=== PATIENT | male | born 1965 | race Caucasian/White ===

== ENCOUNTER → 2016-07-16 | Outpatient (CLI) | payer BC ==
--- NOTE | 2016-07-16 16:05 | US ---
EXAMINATION TYPE: US kidneys/renal and bladder DATE OF EXAM: 07/16/2016 1:59 PM COMPARISON: CT abdomen pelvis 25 April 2016 CLINICAL HISTORY: N20.0 Calculus of Kidney. Hematuria, right flank pain, left kidney stone seen on re cent CT, obese patient EXAM MEASUREMENTS: Right Kidney: 13.0 x 6.1 x 5.8cm Left Kidney: 13.0 x 6.9 x 6.2cm Cortical medullary differentiation is maintained bilaterally. There is no evident hydronephrosis. No mass. Right Kidney: wnl Left Kidney: 0.9cm echogenic focus mid pole Bladder: wnl Bilateral Jets seen: yes Incidental note, the liver shows a coarse echotexture compatible with fatty infiltration. No masses a re identified. The urinary bladder is anechoic. Bilateral ureteral jets are seen. There is no ascites. IMPRESSION: Possible left-sided nephrolithiasis. Additional findings above.
== END | disposition home or self-care (01) ==
LOC: RADUSWWP 13:41
PROVIDERS: ATTEND Family Medicine
DX: N20.0 Calculus of kidney (principal)
CPT/HCPCS: 76770

== ENCOUNTER 2016-09-11 08:52 | Emergency (ER) | payer BC ==
[2016-09-11] MEDS ORDERED: SODIUM CHLORIDE 0.9% 500 ML IV STA (09:09)
[2016-09-11] MEDS ORDERED: SODIUM CHLORIDE 0.9% 1,000 ML IV STA ×2 (09:09)
[2016-09-11 09:14] LABS: Glucose,Whole Blood 157 mg/dL (75-99)
[2016-09-11 09:37] LABS: Basophils # (A) 0.1 k/uL (0-0.2); Basophils % (A) 1 %; CH 30.1; CHCM 33.4; Eosinophils # (A) 0.1 k/uL (0-0.7); Eosinophils % (A) 2 %; HCT 50.6 % (39.0-53.0); HDW 2.66; HGB 16.8 gm/dL (13.0-17.5); Luc # (Auto) 0.29; Luc % (Auto) 4; Lymphocytes # (A) 2.3 k/uL (1.0-4.8); Lymphocytes % (A) 33 %; MCH 30.1 pg (25.0-35.0); MCHC 33.2 g/dL (31.0-37.0); MCV 90.5 fL (80.0-100.0); Mean Platelet Volume 7.9; Monocytes # (A) 0.7 k/uL (0-1.0); Monocytes % (A) 9 %; Neutrophils # (A) 3.6 k/uL (1.3-7.7); Neutrophils % (A) 51 %; RBC 5.59 m/uL (4.30-5.90); RDW 13.7 % (11.5-15.5); WBC 7.1 k/uL (3.8-10.6); WBC (Perox) 7.34
[2016-09-11 09:38] LABS: Appearance,Urine Clear (Clear); Bilirubin,Urine Negative (Negative); Calcium Oxalate Crystals,Urine Occasional /hpf; Glucose,Urine (UA) 2+ (Negative); Ketones,Urine Negative (Negative); Leukocyte Esterase,Urine Negative (Negative); Mucus,Urine Rare /hpf; Nitrite,Urine Negative (Negative); Particle Count 2473; Protein,Urine 1+ (Negative); RBC,Urine >182 /hpf (0-5); Specific Gravity,Urine 1.028 (1.001-1.035); UA Billing (MACRO vs. MICRO) MICRO; WBC,Urine 2 /hpf (0-5)
--- NOTE | 2016-09-11 09:57 | ED ---
General Adult HPI - General Chief complaint: Recheck/Abnormal Lab/Rx Stated complaint: SENT BY [employer], ABNORMAL LABS Time Seen by Provider: 09/11/16 09:08 Source: patient, RN notes reviewed Mode of arrival: ambulatory Limitations: no limitations - History of Present Illness Initial comments: Patient 51-year-old male who presents emergency room today with a chief complaint of symptoms of diarrhea over the last 2 days. Does admit to feeling dizzy earlier today at urgent care and was advised coming here to the emergency room. He states felt dizzy went straight up. States he has felt somewhat clammy over the last 2 days as well. Denies any nausea or vomiting. Denies any other complaints or symptoms. Patient denies any recent fever, chills, shortness of breath, chest pain, back pain, abdominal pain, nausea or vomiting, numbness or tingling, dysuria or hematuria, constipation, headaches or visual changes, or any other complaints. - Related Data Home Medications Medication Instructions Recorded Confirmed Metoprolol Succinate (ER) [Toprol 100 mg PO DAILY 02/14/14 09/11/16 XL] Pantoprazole Sodium [Protonix] 40 mg PO DAILY 02/14/14 09/11/16 amLODIPine BESYLATE [Norvasc] 10 mg PO DAILY 02/14/14 09/11/16 Losartan [Cozaar] 50 mg PO DAILY 04/25/16 09/11/16 Acetaminophen Tab [Tylenol Tab] 1,000 mg PO Q6HR PRN 09/11/16 09/11/16 Citalopram Hydrobromide 40 mg PO DAILY 09/11/16 09/11/16 [Citalopram HBr] metFORMIN HCL [metFORMIN HCL ER] 1,000 mg PO BID 09/11/16 09/11/16 Previous Rx's Medication Instructions Recorded EPINEPHrine [Epipen 2-Arnold] 0.3 mg IM ONCE PRN #2 ml 02/17/14 Allergies Allergy/AdvReac Type Severity Reaction Status Date / Time oxycodone HCl [From Percocet] Allergy Anaphylaxis Verified 09/11/16 09:45 venom-honey bee Allergy Swelling Verified 09/11/16 09:45 [bee venom (honey bee)] codeine AdvReac Itching Verified 09/11/16 09:45 Review of Systems ROS Statement: Those systems with pertinent positive or pertinent negative responses have been documented in the HPI. ROS Other: All systems not noted in ROS Statement are negative. Past Medical History Past Medical History: Diabetes Mellitus, GERD/Reflux, Hypertension History of Any Multi-Drug Resistant Organisms: None Reported Past Surgical History: Orthopedic Surgery Additional Past Surgical History / Comment(s): FASCIOTOMY BILAT HANDS, LT FOOT SURGERY, MUSCLE BIOPSY RT LEG, right shoulder arthroscopy Past Anesthesia/Blood Transfusion Reactions: No Reported Reaction Past Psychological History: Depression Smoking Status: Former smoker Past Alcohol Use History: None Reported Past Drug Use History: None Reported General Exam - General Exam Comments Initial Comments: General: The patient is awake and alert, in no distress, and does not appear acutely ill. Eye: Pupils are equal, round and reactive to light, extra-ocular movements are intact. No nystagmus. There is normal conjunctiva bilaterally. No signs of icterus. Ears, nose, mouth and throat: There are moist mucous membranes and no oral lesions. Neck: The neck is supple, there is no tenderness or JVD. Cardiovascular: There is a regular rate and rhythm. No murmur, rub or gallop is appreciated. Respiratory: Lungs are clear to auscultation, respirations are non-labored, breath sounds are equal. No wheezes, stridor, rales, or rhonchi. Gastrointestinal: Soft, non-distended, non-tender abdomen without masses or organomegaly noted. There is no rebound or guarding present. No CVA tenderness. Bowel sounds are unremarkable. Musculoskeletal: Normal ROM, no tenderness. Strength 5/5. Sensation intact. Pulses equal bilaterally 2+. Neurological: A&O x 3. CN II-XII intact, There are no obvious motor or sensory deficits. Coordination appears grossly intact. Speech is normal. Skin: Skin is warm and dry and no rashes or lesions are noted. Psychiatric: Cooperative, appropriate mood & affect, normal judgment. Limitations: no limitations Course Vital Signs 09/11/16 09/11/16 08:57 09:26 Temperature 97.3 F L Pulse Rate 58 L 54 L Respiratory 18 14 Rate Blood Pressure 157/89 123/77 O2 Sat by Pulse 97 96 Oximetry Medical Decision Making - Medical Decision Making Patient reexamined at this time shows no signs of distress. He denies any complaints at this time. States feels much better. Patient denies any chest pain, shortness of breath. Denies any dizziness, lightheadedness. Denies any clamminess at this time. States feeling better after IV fluids. His labs were reviewed negative cardiac enzymes. EKG shows normal EKG. Patient's chest x- ray negative for any acute abnormalities. Patient's urinalysis does show large amount of blood. Does admit to a history of kidney stones states he's had hematuria in the past. States he has follow-up family doctor about this. Does admit that he had a recent CT done recently. At this time has no pain and no complaints. Options of CAT scan were discussed he states he feels couple following up his family doctor was also advised follow-up urologist about hematuria. Advised return if any symptoms increase worsen or for any other concerns. Patient advised to use Imodium for any more diarrhea episodes. - Lab Data Result diagrams: 09/11/16 09:10 09/11/16 09:10 Lab Results 09/11/16 09/11/16 09/11/16 Range/Units 09:10 09:10 09:10 WBC (3.8-10.6) k/uL RBC (4.30-5.90) m/uL Hgb (13.0-17.5) gm/dL Hct (39.0-53.0) % MCV (80.0-100.0) fL MCH (25.0-35.0) pg MCHC (31.0-37.0) g/dL RDW (11.5-15.5) % Plt Count (150-450) k/uL Neutrophils % % Lymphocytes % % Monocytes % % Eosinophils % % Basophils % % Neutrophils # (1.3-7.7) k/uL Lymphocytes # (1.0-4.8) k/uL Monocytes # (0-1.0) k/uL Eosinophils # (0-0.7) k/uL Basophils # (0-0.2) k/uL Sodium 143 (137-145) mmol/L Potassium 4.0 (3.5-5.1) mmol/L Chloride 105 (98-107) mmol/L Carbon Dioxide 26 (22-30) mmol/L Anion Gap 12 mmol/L BUN 15 (9-20) mg/dL Creatinine 0.70 (0.66-1.25) mg/dL Est GFR (MDRD) Af Amer >60 (>60 ml/min/1.73 sqM) Est GFR (MDRD) Non-Af >60 (>60 ml/min/1.73 sqM) Glucose 149 H (74-99) mg/dL POC Glucose (mg/dL) 157 H (75-99) mg/dL POC Glu Social Media Strategist ID Nikky Dove Calcium 9.6 (8.4-10.2) mg/dL Total Bilirubin 0.5 (0.2-1.3) mg/dL AST 34 (17-59) U/L ALT 60 (21-72) U/L Alkaline Phosphatase 98 (38-126) U/L Total Creatine Kinase 56 (55-170) U/L CK-MB (CK-2) 0.3 (0.0-2.4) ng/mL CK-MB (CK-2) Rel Index 0.5 Troponin I <0.012 (0.000-0.034) ng/mL Total Protein 7.3 (6.3-8.2) g/dL Albumin 4.5 (3.5-5.0) g/dL Amylase 68 (30-110) U/L Lipase 158 (23-300) U/L Urine Color Urine Appearance (Clear) Urine pH (5.0-8.0) Ur Specific [place] (1.001-1.035) Urine Protein (Negative) Urine Glucose (UA) (Negative) Urine Ketones (Negative) Urine Blood (Negative) Urine Nitrite (Negative) Urine Bilirubin (Negative) Urine Urobilinogen (<2.0) mg/dL Ur Leukocyte Esterase (Negative) Urine RBC (0-5) /hpf Urine WBC (0-5) /hpf Calcium Oxalate Crystal (None) /hpf Urine Mucus (None) /hpf Acetone, Qual Negative (Negative) 09/11/16 09/11/16 Range/Units 09:10 09:10 WBC 7.1 (3.8-10.6) k/uL RBC 5.59 (4.30-5.90) m/uL Hgb 16.8 (13.0-17.5) gm/dL Hct 50.6 (39.0-53.0) % MCV 90.5 (80.0-100.0) fL MCH 30.1 (25.0-35.0) pg MCHC 33.2 (31.0-37.0) g/dL RDW 13.7 (11.5-15.5) % Plt Count 200 (150-450) k/uL Neutrophils % 51 % Lymphocytes % 33 % Monocytes % 9 % Eosinophils % 2 % Basophils % 1 % Neutrophils # 3.6 (1.3-7.7) k/uL Lymphocytes # 2.3 (1.0-4.8) k/uL Monocytes # 0.7 (0-1.0) k/uL Eosinophils # 0.1 (0-0.7) k/uL Basophils # 0.1 (0-0.2) k/uL Sodium (137-145) mmol/L Potassium (3.5-5.1) mmol/L Chloride (98-107) mmol/L Carbon Dioxide (22-30) mmol/L Anion Gap mmol/L BUN (9-20) mg/dL Creatinine (0.66-1.25) mg/dL Est GFR (MDRD) Af Amer (>60 ml/min/1.73 sqM) Est GFR (MDRD) Non-Af (>60 ml/min/1.73 sqM) Glucose (74-99) mg/dL POC Glucose (mg/dL) (75-99) mg/dL POC Glu Social Media Strategist ID Calcium (8.4-10.2) mg/dL Total Bilirubin (0.2-1.3) mg/dL AST (17-59) U/L ALT (21-72) U/L Alkaline Phosphatase (38-126) U/L Total Creatine Kinase (55-170) U/L CK-MB (CK-2) (0.0-2.4) ng/mL CK-MB (CK-2) Rel Index Troponin I (0.000-0.034) ng/mL Total Protein (6.3-8.2) g/dL Albumin (3.5-5.0) g/dL Amylase (30-110) U/L Lipase (23-300) U/L Urine Color Yellow Urine Appearance Clear (Clear) Urine pH 6.0 (5.0-8.0) Ur Specific [place] 1.028 (1.001-1.035) Urine Protein 1+ H (Negative) Urine Glucose (UA) 2+ H (Negative) Urine Ketones Negative (Negative) Urine Blood Moderate H (Negative) Urine Nitrite Negative (Negative) Urine Bilirubin Negative (Negative) Urine Urobilinogen 2.0 (<2.0) mg/dL Ur Leukocyte Esterase Negative (Negative) Urine RBC >182 H (0-5) /hpf Urine WBC 2 (0-5) /hpf Calcium Oxalate Crystal Occasional H (None) /hpf Urine Mucus Rare H (None) /hpf Acetone, Qual (Negative) Disposition Clinical Impression: Acute diarrhea Disposition: HOME SELF-CARE Condition: Good Instructions: Acute Diarrhea (ED) Additional Instructions: Please use medication as discussed. Please follow-up with family doctor in the next 2 days of symptoms have not improved. Please return to emergency room if the symptoms increase or worsen or for any other concerns. Time of Disposition: 11:27
[2016-09-11 09:58] LABS: ALT 60 U/L (21-72); AST 34 U/L (17-59); Alkaline Phosphatase 98 U/L (38-126); Amylase 68 U/L (30-110); Anion Gap 12 mmol/L; Blood Urea Nitrogen 15 mg/dL (9-20); Calcium 9.6 mg/dL (8.4-10.2); Carbon Dioxide 26 mmol/L (22-30); Chloride 105 mmol/L (98-107); Glucose 149 mg/dL (74-99); Non-African American GFR(MDRD) >60 (>60 ml/min/1.73 sqM); Sodium 143 mmol/L (137-145); Total Bilirubin 0.5 mg/dL (0.2-1.3); Total Protein 7.3 g/dL (6.3-8.2)
[2016-09-11 10:08] LABS: Creatine Kinase 56 U/L (55-170)
[2016-09-11 10:21] LABS: Creatine Kinase MB 0.3 ng/mL (0.0-2.4); Troponin I <0.012 ng/mL (0.000-0.034)
--- NOTE | 2016-09-11 10:54 | XR ---
EXAMINATION TYPE: XR chest 2V DATE OF EXAM: 09/11/2016 10:51 AM COMPARISON: None TECHNIQUE: PA and lateral views submitted. HISTORY: Dizziness FINDINGS: The lungs are clear and there is no pneumothorax, pleural effusion, or focal pneumonia. Linear granger ges involving the left upper lobe with typical scar or atelectasis. No pleural effusion or pneumothor ax. Heart size is mildly prominent. IMPRESSION: 1. No acute process. Left upper lobe linear atelectasis.
[2016-09-11 11:52] VITALS: BP 143/86; PULSE 53; RESP 16; TEMP 97.5
== END 2016-09-11 11:49 | disposition home or self-care (01) ==
LOC: EC 08:52
DX: R19.7 Diarrhea, unspecified (principal); R42 Dizziness and giddiness; R31.9 Hematuria, unspecified; E11.9 Type 2 diabetes mellitus without complications; I10 Essential (primary) hypertension; K21.9 Gastro-esophageal reflux disease without esophagitis; F32.9 Major depressive disorder, single episode, unspecified; Z88.5 Allergy status to narcotic agent; Z87.891 Personal history of nicotine dependence; Z91.030 Bee allergy status; Z79.84 Long term (current) use of oral hypoglycemic drugs; Z79.899 Other long term (current) drug therapy
CPT/HCPCS: 36415; 71020; 80053; 81001; 82009; 82150; 82550; 82553; 83690; 84484; 85025; 93005; 96360; 99283

== ENCOUNTER 2017-01-26 02:14 | Observation (INO) | payer BC ==
[2017-01-26] MEDS ORDERED: ASPIRIN 81 MG CHEW PO STA (02:40)
[2017-01-26] MEDS ORDERED: NITROGLYCERIN SL TABS 0.4 MG TAB SUBLINGUAL STA (02:40)
--- NOTE | 2017-01-26 02:46 | ED ---
Chest Pain HPI - General Chief Complaint: Chest Pain Stated Complaint: Chest pains Time Seen by Provider: 01/26/17 02:19 Source: patient Mode of arrival: ambulatory Limitations: no limitations - History of Present Illness Initial Comments: This patient is a 51-year-old man who presents to be a value for substernal and left chest pain that he describes as being like a "burning feeling but not like heartburn." Patient was at work with seated when it developed. He states that pain is moderate. It has improved since she has arrived here. He did not note any worsening or relieving factors. He did feel a little sweaty when the pain came on. MD Complaint: chest pain Onset/Timin -: hour(s) Onset: during rest Pain Location: substernal Pain Radiation: none Severity: moderate Quality: other (Burning) Consistency: constant Improves With: nothing Worsens With: nothing Anginal Symptoms: diaphoresis Treatments Prior to Arrival: none - Related Data Home Medications Medication Instructions Recorded Confirmed Metoprolol Succinate (ER) [Toprol 100 mg PO DAILY 02/14/14 01/26/17 XL] Pantoprazole Sodium [Protonix] 40 mg PO DAILY 02/14/14 01/26/17 amLODIPine BESYLATE [Norvasc] 10 mg PO DAILY 02/14/14 01/26/17 Losartan [Cozaar] 50 mg PO DAILY 04/25/16 01/26/17 Acetaminophen Tab [Tylenol Tab] 1,000 mg PO Q6HR PRN 09/11/16 01/26/17 Citalopram Hydrobromide 40 mg PO DAILY 09/11/16 01/26/17 [Citalopram HBr] metFORMIN HCL [metFORMIN HCL ER] 1,000 mg PO BID 09/11/16 01/26/17 Empagliflozin [Jardiance] 10 mg PO DAILY 01/26/17 01/26/17 Previous Rx's Medication Instructions Recorded EPINEPHrine [Epipen 2-Arnold] 0.3 mg IM ONCE PRN #2 ml 02/17/14 Allergies Allergy/AdvReac Type Severity Reaction Status Date / Time oxycodone HCl [From Percocet] Allergy Anaphylaxis Verified 01/26/17 07:40 venom-honey bee Allergy Swelling Verified 01/26/17 07:40 [bee venom (honey bee)] codeine AdvReac Itching Verified 01/26/17 07:40 Review of Systems ROS Statement: Those systems with pertinent positive or pertinent negative responses have been documented in the HPI. ROS Other: All systems not noted in ROS Statement are negative. Constitutional: Denies: fever, chills Respiratory: Denies: cough, dyspnea Cardiovascular: Reports: chest pain. Denies: palpitations, edema, syncope Gastrointestinal: Denies: abdominal pain, nausea, vomiting Genitourinary: Denies: dysuria Musculoskeletal: Denies: back pain Skin: Denies: rash Neurological: Denies: headache, weakness, numbness EKG Findings - EKG Results: EKG: interpreted by TAINA DUVAL, sinus rhythm (Rate 79 bpm), normal axis, normal QRS, normal ST/T, no acute changes - AK, Pacemaker, Normal: Normal tracing: normal tracing Past Medical History Past Medical History: Diabetes Mellitus, GERD/Reflux, Hypertension History of Any Multi-Drug Resistant Organisms: None Reported Past Surgical History: Orthopedic Surgery Additional Past Surgical History / Comment(s): FASCIOTOMY BILAT HANDS, LT FOOT SURGERY, MUSCLE BIOPSY RT LEG, right shoulder arthroscopy Past Anesthesia/Blood Transfusion Reactions: No Reported Reaction Past Psychological History: Depression Smoking Status: Former smoker Past Alcohol Use History: None Reported Past Drug Use History: None Reported - Past Family History Father Family Medical History: Coronary Artery Disease (CAD), Diabetes Mellitus, Prostate Disorder Additional Family Medical History / Comment(s): st. caths at home Sister(s) Family Medical History: Diabetes Mellitus Mother Family Medical History: Cancer, COPD, Fibromyalgia Additional Family Medical History / Comment(s): Bladder CA General Exam Limitations: no limitations General appearance: alert, in no apparent distress, obese Head exam: Present: atraumatic, normocephalic Eye exam: Present: normal appearance, PERRL, EOMI. Absent: scleral icterus, conjunctival injection Neck exam: Present: normal inspection, full ROM Respiratory exam: Present: normal lung sounds bilaterally. Absent: respiratory distress, wheezes, rales, rhonchi, stridor Cardiovascular Exam: Present: regular rate, normal rhythm, normal heart sounds. Absent: systolic murmur, diastolic murmur, rubs, gallop GI/Abdominal exam: Present: soft. Absent: distended, tenderness, guarding, mass Extremities exam: Present: normal inspection, normal capillary refill. Absent: pedal edema, calf tenderness Back exam: Absent: CVA tenderness (R), CVA tenderness (L) Neurological exam: Present: alert Skin exam: Present: warm, dry, intact, normal color. Absent: rash Course Vital Signs 01/26/17 01/26/17 02:22 03:32 Temperature 97.1 F L Pulse Rate 84 69 Respiratory 18 18 Rate Blood Pressure 153/76 135/67 O2 Sat by Pulse 95 97 Oximetry Chest Pain MDM - MDM This patient is a 51-year-old man who presents with some substernal left chest pain that wasn't coming by diaphoresis. The symptoms have resolved and his initial workup is normal, but there are risk factors for cardiac disease including diabetes and some family history. Patient be admitted for serial cardiac enzymes and telemetry monitoring. Disposition Clinical Impression: Chest pain Disposition: ADMITTED IP TO THIS HOSP Condition: Good
[2017-01-26 02:50] LABS: Basophils # (A) 0.1 k/uL (0-0.2); Basophils % (A) 1 %; CH 29.5; CHCM 33.2; Eosinophils # (A) 0.2 k/uL (0-0.7); Eosinophils % (A) 3 %; HCT 50.7 % (39.0-53.0); HDW 2.65; HGB 16.5 gm/dL (13.0-17.5); Luc # (Auto) 0.17; Luc % (Auto) 2; Lymphocytes # (A) 2.9 k/uL (1.0-4.8); Lymphocytes % (A) 35 %; MCH 29.1 pg (25.0-35.0); MCHC 32.6 g/dL (31.0-37.0); MCV 89.4 fL (80.0-100.0); Mean Platelet Volume 7.9; Monocytes # (A) 0.5 k/uL (0-1.0); Monocytes % (A) 6 %; Neutrophils # (A) 4.4 k/uL (1.3-7.7); Neutrophils % (A) 53 %; RBC 5.67 m/uL (4.30-5.90); WBC 8.2 k/uL (3.8-10.6); WBC (Perox) 8.07
[2017-01-26 03:07] LABS: ALT 48 U/L (21-72); AST 29 U/L (17-59); Alkaline Phosphatase 90 U/L (38-126); Amylase 59 U/L (30-110); Anion Gap 14 mmol/L; Blood Urea Nitrogen 17 mg/dL (9-20); Calcium 9.6 mg/dL (8.4-10.2); Carbon Dioxide 23 mmol/L (22-30); Chloride 105 mmol/L (98-107); Glucose 229 mg/dL (74-99); Magnesium 1.9 mg/dL (1.6-2.3); Non-African American GFR(MDRD) >60 (>60 ml/min/1.73 sqM); Potassium 3.9 mmol/L (3.5-5.1); Sodium 142 mmol/L (137-145); Total Bilirubin 0.6 mg/dL (0.2-1.3); Total Protein 6.9 g/dL (6.3-8.2)
[2017-01-26 03:10] LABS: Creatine Kinase 74 U/L (55-170)
[2017-01-26 03:23] LABS: Creatine Kinase MB 0.7 ng/mL (0.0-2.4); Troponin I <0.012 ng/mL (0.000-0.034)
--- NOTE | 2017-01-26 03:48 | XR ---
PROCEDURE: FILM CXR 1 VIEW HISTORY: 51-year-old male with chest pain. COMPARISON: Chest radiograph 09/11/2016 TECHNIQUE: Frontal view of the chest was obtained. FINDINGS: Limited by technique. Cardiomediastinal silhouette is stable. Left basilar atelectasis/consolidation. Bones are unremarkable for age. IMPRESSION: Left basilar atelectasis/consolidation.
[2017-01-26] MEDS ORDERED: MORPHINE SULFATE 4 MG/ML SYRINGE IV PRN (04:43)
[2017-01-26] MEDS ORDERED: ENOXAPARIN 120 MG/0.8 ML SYRINGE SQ STA (04:43)
[2017-01-26] MEDS ORDERED: NITROGLYCERIN SL TABS 0.4 MG TAB SUBLINGUAL PRN ×2 (04:43→10:11)
[2017-01-26 05:34] VITALS: BMI 35.1
[2017-01-26] MEDS: SODIUM CHLORIDE 0.9% 1,000 ML IV SCH ×4 (06:25→18:22)
[2017-01-26 07:04] LABS: Glucose,Whole Blood 96 mg/dL (75-99)
[2017-01-26] MEDS ORDERED: metFORMIN 500 MG TAB PO SCH (09:00)
[2017-01-26 09:07] LABS: Creatine Kinase 63 U/L (55-170)
[2017-01-26 09:20] LABS: Creatine Kinase MB 0.7 ng/mL (0.0-2.4); Troponin I <0.012 ng/mL (0.000-0.034)
[2017-01-26] MEDS ORDERED: ASPIRIN 325 MG TAB PO STA (10:11)
[2017-01-26] MEDS ORDERED: ATORVASTATIN 80 MG TAB PO STA (10:11)
[2017-01-26] MEDS ORDERED: ALPRAZolam 0.25 MG TAB PO PRN (10:11)
[2017-01-26] MEDS ORDERED: ALPRAZolam 0.5 MG TAB PO PRN (10:11)
[2017-01-26] MEDS ORDERED: SODIUM CHLORIDE 0.9% 1,000 ML in EMPTY BAG 1 BAG IV ONE (10:11)
[2017-01-26] MEDS: LOSARTAN 50 MG TAB PO SCH (10:56)
[2017-01-26] MEDS: CITALOPRAM HYDROBROMIDE 20 MG TAB PO SCH (10:56)
[2017-01-26] MEDS: amLODIPine 10 MG TAB PO SCH (10:57)
[2017-01-26] MEDS: METOPROLOL TARTRATE 25 MG TAB PO SCH ×2 (10:57→22:28)
[2017-01-26] MEDS: PANTOPRAZOLE 40 MG TABLET PO SCH (10:58)
[2017-01-26 12:04] LABS: Glucose,Whole Blood 103 mg/dL (75-99)
[2017-01-26] MEDS ORDERED: LIDOCAINE 2% INJ 20 MG/ML (20 ML MDV) ONE ×2 (12:18→14:05)
[2017-01-26] MEDS ORDERED: IV FLUID CONTINUATION 1,000 ML IV ONE (12:20)
[2017-01-26] MEDS ORDERED: MIDAZOLAM 2 MG/2 ML VIAL ONE (12:26)
[2017-01-26] MEDS ORDERED: fentaNYL (PF) 50 MCG/ML 2 ML AMP ONE (12:26)
[2017-01-26] MEDS: fentaNYL (PF) 50 MCG/ML 2 ML AMP IV ONE ×2 (12:30→12:43)
[2017-01-26] MEDS ORDERED: MIDAZOLAM 2 MG/2 ML VIAL IV ONE (12:31)
[2017-01-26] MEDS ORDERED: diphenhydrAMINE 50 MG/ML 1 ML VIAL ONE (12:35)
[2017-01-26] MEDS ORDERED: diphenhydrAMINE 50 MG/ML 1 ML VIAL IVP ONE (12:36)
[2017-01-26] MEDS ORDERED: LIDOCAINE 2% INJ 20 MG/ML SQ ONE (12:36)
[2017-01-26] MEDS ORDERED: TICAGRELOR 90 MG TAB ONE (12:51)
[2017-01-26] MEDS ORDERED: ASPIRIN 325 MG TAB ONE (12:53)
[2017-01-26] MEDS ORDERED: ASPIRIN 325 MG TAB PO ONE (12:56)
[2017-01-26] MEDS ORDERED: TICAGRELOR 90 MG TAB PO ONE (12:56)
--- NOTE | 2017-01-26 13:08 | P.OP ---
Preoperative Diagnosis: Postoperative Diagnosis: Procedure(s) Performed: Implants: Indications for Procedure: Operative Findings: Description of Procedure: This patient was admitted with symptoms suggestive of unstable angina syndrome patient's EKGs and cardiac enzymes were normal. PO2 of the history suggestive of unstable angina patient was advised cardiac catheterization. Procedure the right groin was prepped and draped in the usual manner and the right femoral artery was entered using Seldinger technique. And #6-[place] sheath was placed in. 2 coronary angiography was then performed in multiple projections and the left ventricular pressures were obtained. Dr. Wharton subsequently proceeded with the stent to the RCA. Hemodynamics left ventricular end-diastolic pressure is 24 mmHg prior to angiography. No gradient is noted across the aortic wall. Coronary angiography. Left main coronary artery is normal and patent. LAD is a good caliber blood vessel and gives rise to a small size diagonal branch LAD and is branches are normal. Flex coronary artery is a good caliber blood vessels and gives is a good size obtuse marginal branch which is normal. Coronary artery is a dominant tissue patient and has approximately 99% stenosis and gives rise to a small size PLV and PDA branch. Final impression This study reveals a 99% stenosis of the proximal right coronary artery. LAD and circumflex coronary artery has a minimal irregularities. Left ventricular end-diastolic pressure is elevated. We will review the film with Dr. Wharton and proceed with a stent to the RCA.
[2017-01-26] MEDS ORDERED: BIVALIRUDIN BOLUS 250 MG/50 ML IV ONE (13:32)
[2017-01-26] MEDS ORDERED: BIVALIRUDIN 250 MG in SODIUM CHLORIDE 0.9% 50 ML IV ONE (13:33)
--- NOTE | 2017-01-26 13:36 | P.CRDCN ---
History of Present Illness Consult date: 01/26/17 Consult reason: chest pain History of present illness: This is a 51-year-old male presented to the emergency department with complaints of chest pain while at work. This patient follows with Dr. VC Fitzgerald as an outpatient. 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 Upon arriving to the emergency department was placed on oxygen and that helped decrease his pain. He had a nuclear Cardiolite stress test in October 2015 which showed an ejection fraction of 58% with upsloping ST segment changes which are not definitely diagnostic of ischemia. EKG upon arrival shows normal sinus mechanism no acute ST changes. He has been sinus on the monitor since admission. His pertinent cardiac medications include Norvasc 10 mg by mouth daily, Toprol-XL 100 mg by mouth daily, losartan 50 mg by mouth daily. He is unable to tolerate Lipitor. Upon examination today he states the pain in his chest still mildly they're described as burning, denies shortness of breath, denies nausea, denies dizziness. First 2 troponins were negative, hemoglobin 16.5, potassium 3.9. Patient does admit to daily smoking times greater than 30 years. Review of Systems REVIEW OF SYSTEMS: Patient denies any shortness of breath. No diaphoresis. He denies headache, dizziness, blurred vision, double vision. No dyspnea on exertion. Patient denies any stomach discomfort. No nausea, vomiting. No hematochezia. No hematemesis. Denies any black stools or blood in his stools. No syncope. No palpitations. No cough. No recent fever or chills. Denies dysuria or hematuria. No muscle weakness or numbness. Past Medical History Past Medical History: Diabetes Mellitus, GERD/Reflux, Hypertension Additional Past Medical History / Comment(s): kidney stones History of Any Multi-Drug Resistant Organisms: None Reported Past Surgical History: Orthopedic Surgery Additional Past Surgical History / Comment(s): FASCIOTOMY BILAT HANDS, LT FOOT SURGERY, MUSCLE BIOPSY RT LEG, right shoulder arthroscopy Past Anesthesia/Blood Transfusion Reactions: No Reported Reaction Past Psychological History: Depression Smoking Status: Current every day smoker Past Alcohol Use History: None Reported Past Drug Use History: None Reported - Past Family History Father Family Medical History: Coronary Artery Disease (CAD), Diabetes Mellitus, Prostate Disorder Additional Family Medical History / Comment(s): st. caths at home Sister(s) Family Medical History: Diabetes Mellitus Mother Family Medical History: Cancer, COPD, Fibromyalgia Additional Family Medical History / Comment(s): Bladder CA Medications and Allergies Home Medications Medication Instructions Recorded Confirmed Type Metoprolol Succinate (ER) [Toprol 100 mg PO DAILY 02/14/14 01/26/17 History XL] Pantoprazole Sodium [Protonix] 40 mg PO DAILY 02/14/14 01/26/17 History amLODIPine BESYLATE [Norvasc] 10 mg PO DAILY 02/14/14 01/26/17 History Losartan [Cozaar] 50 mg PO DAILY 04/25/16 01/26/17 History Acetaminophen Tab [Tylenol Tab] 1,000 mg PO Q6HR PRN 09/11/16 01/26/17 History Citalopram Hydrobromide 40 mg PO DAILY 09/11/16 01/26/17 History [Citalopram HBr] metFORMIN HCL [metFORMIN HCL ER] 1,000 mg PO BID 09/11/16 01/26/17 History Empagliflozin [Jardiance] 10 mg PO DAILY 01/26/17 01/26/17 History Allergies Allergy/AdvReac Type Severity Reaction Status Date / Time oxycodone HCl [From Percocet] Allergy Anaphylaxis Verified 01/26/17 07:40 venom-honey bee Allergy Swelling Verified 01/26/17 07:40 [bee venom (honey bee)] codeine AdvReac Itching Verified 01/26/17 07:40 Physical Exam Vitals: Vital Signs Temp Pulse Pulse Resp BP BP Pulse Ox 01/26/17 07:59 97.9 F 56 L 18 154/91 97 01/26/17 06:03 58 L 18 01/26/17 05:00 97.9 F 63 18 137/65 96 01/26/17 03:32 69 18 135/67 97 01/26/17 02:22 97.1 F L 84 18 153/76 95 Intake and Output 01/25/17 01/26/17 01/26/17 22:59 06:59 14:59 Other: Voiding Method Toilet Toilet # Voids 1 Weight 120.8 kg GENERAL: This is a 51-year-old male in no apparent distress at the time of my examination. HEENT: Head is atraumatic, normocephalic. Pupils are equal, round. Sclerae anicteric. Conjunctivae are clear. Mucous membranes of the mouth are moist. Neck is supple. There is no jugular venous distention. No carotid bruit is heard. LUNGS: Clear to auscultation and precussion. No chest wall tenderness is noted on palpation or with deep breathing. HEART: Regular rate and rhythm without murmurs, rubs or gallops. S1 and S2 heard. ABDOMEN: Soft, nontender. Bowel sounds are heard. No organomegaly noted. Obese abdomen. EXTREMITIES: 2+ peripheral pulses with no evidence of peripheral edema and no calf tenderness noted. NEUROLOGIC: Patient is awake, alert and oriented x3. Results 01/26/17 02:30 01/26/17 02:30 Cardiac Enzymes 01/26/17 01/26/17 01/26/17 Range/Units 02:30 02:30 08:25 AST 29 (17-59) U/L CK-MB (CK-2) 0.7 0.7 (0.0-2.4) ng/mL Troponin I <0.012 <0.012 (0.000-0.034) ng/mL CBC 01/26/17 Range/Units 02:30 WBC 8.2 (3.8-10.6) k/uL RBC 5.67 (4.30-5.90) m/uL Hgb 16.5 (13.0-17.5) gm/dL Hct 50.7 (39.0-53.0) % Plt Count 227 (150-450) k/uL Comprehensive Metabolic Panel 01/26/17 Range/Units 02:30 Sodium 142 (137-145) mmol/L Potassium 3.9 (3.5-5.1) mmol/L Chloride 105 (98-107) mmol/L Carbon Dioxide 23 (22-30) mmol/L BUN 17 (9-20) mg/dL Creatinine 0.80 (0.66-1.25) mg/dL Glucose 229 H (74-99) mg/dL Calcium 9.6 (8.4-10.2) mg/dL AST 29 (17-59) U/L ALT 48 (21-72) U/L Alkaline Phosphatase 90 (38-126) U/L Total Protein 6.9 (6.3-8.2) g/dL Albumin 4.4 (3.5-5.0) g/dL Current Medications Generic Name Dose Route Start Last Admin Trade Name Freq PRN Reason Stop Dose Admin Alprazolam 0.25 mg 01/26/17 10:11 Xanax PO Q6HR PRN Mild Anxiety Alprazolam 0.5 mg 01/26/17 10:11 Xanax PO Q6HR PRN Moderate Anxiety Amlodipine Besylate 10 mg 01/26/17 09:00 01/26/17 10:57 Norvasc PO 10 mg DAILY ABDULAZIZ Administration Aspirin 325 mg 01/27/17 09:00 Aspirin PO DAILY [facility] Atorvastatin Calcium 40 mg 01/26/17 21:00 Lipitor PO HS [facility] Citalopram Hydrobromide 40 mg 01/26/17 09:00 01/26/17 10:56 Celexa PO 40 mg DAILY [facility] Administration Sodium Chloride 1,000 mls @ 150 mls/hr 01/26/17 04:45 01/26/17 06:25 Saline 0.9% IV Not Given .Q6H40M [facility] Losartan Potassium 50 mg 01/26/17 09:00 01/26/17 10:56 Cozaar PO 50 mg DAILY [facility] Administration Metformin HCl 1,000 mg 01/26/17 09:00 01/26/17 10:39 Glucophage PO Not Given BID [facility] Metoprolol Tartrate 25 mg 01/26/17 09:00 01/26/17 10:57 Lopressor PO 25 mg BID [facility] Administration Morphine Sulfate 4 mg 01/26/17 04:43 Morphine Sulfate (Inj) IV Q5M PRN Chest Pain Nitroglycerin 0.4 mg 01/26/17 10:11 Nitrostat SUBLINGUAL Q5M PRN Chest Pain Pantoprazole Sodium 40 mg 01/26/17 09:00 01/26/17 10:58 Protonix PO 40 mg DAILY ABDULAZIZ Administration Intake and Output 01/25/17 01/26/17 01/26/17 22:59 06:59 14:59 Other: Voiding Method Toilet Toilet # Voids 1 Weight 120.8 kg 01/26/17 02:30 01/26/17 02:30 - EKG Interpretation EKG: sinus rhythm Assessment and Plan Plan: ASSESSMENT 1. Chest pain, suggestive of acute coronary syndrome. 2. Essential hypertension. 3. Pha-lewynkd-hdfxohaju diabetes mellitus. 4. GERD 5. Chronic tobacco abuse. 6. Obesity, BMI 35.1. PLAN Due to the patient's presentation we will forego stress testing and schedule the patient for cardiac catheterization this afternoon to assess coronary artery stenosis. We will also obtain an echocardiogram prior to the catheterization. The procedure is explained to the patient and his in detail, risks explained verbalized understanding and questions answered. Patient is agreeable and prepared to move forward with the procedure. Smoking cessation and lifestyle modifications including exercise and diet discussed at length.
[2017-01-26] MEDS: NITROGLYCERIN 1000MCG/10ML SYRINGE INTRACORON ONE ×2 (13:55→13:56)
[2017-01-26] MEDS ORDERED: IOHEXOL 350 MG/ML 125ML BOTTLE INJ ONE (14:06)
[2017-01-26] MEDS ORDERED: RX INFO: IV CONTRAST WAS GIVEN 1 EACH MISC MISCELLANE PRN (15:01)
[2017-01-26] MEDS ORDERED: MAG HYDROX/AL HYDROX/SIMETH 30 ML CUP PO PRN (15:01)
[2017-01-26] MEDS ORDERED: ATROPINE SULFATE 0.1 MG/ML 10ML SYRINGE IV PRN (15:01)
[2017-01-26] MEDS ORDERED: ACETAMINOPHEN TAB 325 MG TAB PO PRN (15:42)
[2017-01-26 15:47] LABS: Glucose,Whole Blood 127 mg/dL (75-99)
--- NOTE | 2017-01-26 16:45 | P.HPIM ---
History of Present Illness H&P Date: 01/26/17 Chief Complaint: chest pain 51 yr old with history of HTN, ongoing tobacco use, DM2 comes into the hospital with sudden onset chest pressure across his midsternal region, non radiating. States that he may noted some mild pressure previously with ambulation however ignored it. Pt states his pain is relived after receiving medications in the er, ekg didnot reveal st t wave changes, bradycardia was noted Pt was recommended to undergo cardiac cath, was noted to have a proximal RCA lesion, underwent stenting. pt was seen in the post cath area denies having any chest pain, nausea, vomiting, chelsey, abdominal pain. Review of Systems All systems: negative (noted in hpi) Past Medical History Past Medical History: Diabetes Mellitus, GERD/Reflux, Hypertension Additional Past Medical History / Comment(s): kidney stones History of Any Multi-Drug Resistant Organisms: None Reported Past Surgical History: Orthopedic Surgery Additional Past Surgical History / Comment(s): FASCIOTOMY BILAT HANDS, LT FOOT SURGERY, MUSCLE BIOPSY RT LEG, right shoulder arthroscopy Past Anesthesia/Blood Transfusion Reactions: No Reported Reaction Past Psychological History: Depression Smoking Status: Current every day smoker Past Alcohol Use History: None Reported Past Drug Use History: None Reported - Past Family History Father Family Medical History: Coronary Artery Disease (CAD), Diabetes Mellitus, Prostate Disorder Additional Family Medical History / Comment(s): st. caths at home Sister(s) Family Medical History: Diabetes Mellitus Mother Family Medical History: Cancer, COPD, Fibromyalgia Additional Family Medical History / Comment(s): Bladder CA Medications and Allergies Home Medications Medication Instructions Recorded Confirmed Type Metoprolol Succinate (ER) [Toprol 100 mg PO DAILY 02/14/14 01/26/17 History XL] Pantoprazole Sodium [Protonix] 40 mg PO DAILY 02/14/14 01/26/17 History amLODIPine BESYLATE [Norvasc] 10 mg PO DAILY 02/14/14 01/26/17 History Losartan [Cozaar] 50 mg PO DAILY 04/25/16 01/26/17 History Acetaminophen Tab [Tylenol Tab] 1,000 mg PO Q6HR PRN 09/11/16 01/26/17 History Citalopram Hydrobromide 40 mg PO DAILY 09/11/16 01/26/17 History [Citalopram HBr] metFORMIN HCL [metFORMIN HCL ER] 1,000 mg PO BID 09/11/16 01/26/17 History Empagliflozin [Jardiance] 10 mg PO DAILY 01/26/17 01/26/17 History Allergies Allergy/AdvReac Type Severity Reaction Status Date / Time oxycodone HCl [From Percocet] Allergy Anaphylaxis Verified 01/26/17 07:40 venom-honey bee Allergy Swelling Verified 01/26/17 07:40 [bee venom (honey bee)] codeine AdvReac Itching Verified 01/26/17 07:40 Physical Exam Vitals: Vital Signs Temp Pulse Pulse Pulse Resp BP BP 01/26/17 15:45 58 L 16 138/84 01/26/17 15:30 58 L 18 131/77 01/26/17 15:14 62 16 131/79 01/26/17 15:00 57 L 16 130/79 01/26/17 07:59 97.9 F 56 L 18 154/91 01/26/17 06:03 58 L 18 01/26/17 05:00 97.9 F 63 18 137/65 01/26/17 03:32 69 18 135/67 01/26/17 02:22 97.1 F L 84 18 153/76 Pulse Ox 01/26/17 15:45 97 01/26/17 15:30 96 01/26/17 15:14 96 01/26/17 15:00 96 01/26/17 07:59 97 01/26/17 06:03 01/26/17 05:00 96 01/26/17 03:32 97 01/26/17 02:22 95 Intake and Output 01/26/17 01/26/17 01/26/17 06:59 14:59 22:59 Intake Total 290.5 Output Total 700 Balance 290.5 -700 Intake: IV 290.5 Output: Urine 700 Other: Voiding Method Toilet Toilet # Voids 1 Weight 120.8 kg - Constitutional General appearance: no acute distress - EENT Eyes: EOMI, PERRLA - Respiratory Respiratory: bilateral: CTA, negative: diminished, dullness, rales - Cardiovascular Rhythm: regular Heart sounds: normal: S1, S2 Abnormal Heart Sounds: no systolic murmur - Gastrointestinal General gastrointestinal: normal bowel sounds, no organomegaly, soft - Integumentary Integumentary: normal - Neurologic Neurologic: CNII-XII intact - Psychiatric Psychiatric: A&O x's 3 Results CBC & Chem 7: 01/26/17 02:30 01/26/17 02:30 Labs: Abnormal Lab Results - Last 24 Hours (Table) 01/26/17 01/26/17 01/26/17 Range/Units 02:30 12:02 15:43 Glucose 229 H (74-99) mg/dL POC Glucose (mg/dL) 103 H 127 H (75-99) mg/dL Thrombosis Risk Factor Assmnt - Choose All That Apply Any of the Below Risk Factors Present?: Yes Each Factor Represents 1 point: Age 41-60 years, Obesity (BMI >25) Other Risk Factors: No Thrombosis Risk Factor Assessment Total Risk Factor Score: 2 Thrombosis Risk Factor Assessment Level: Low Risk Assessment and Plan Plan: 1. Atypical chest pain, s/p RCA intervention 2. DM2 3. HTN 4. ONgoing tobacco use 5. Suspected ARNEL Plan DAPT with brillanta as pt is a diabetic HOld oral anti diabetic meds insulin sliding scale vascular checks Telemetry monitering
[2017-01-26 18:06] LABS: Creatine Kinase 59 U/L (55-170)
[2017-01-26 18:20] LABS: Creatine Kinase MB 0.5 ng/mL (0.0-2.4); Troponin I <0.012 ng/mL (0.000-0.034)
[2017-01-26] MEDS ORDERED: ATORVASTATIN 40 MG TAB PO SCH (21:00)
[2017-01-26] MEDS: TICAGRELOR 90 MG TAB PO SCH (22:28)
[2017-01-27 06:26] LABS: Glucose,Whole Blood 117 mg/dL (75-99)
[2017-01-27 06:34] LABS: Basophils # (A) 0.1 k/uL (0-0.2); Basophils % (A) 1 %; CH 29.6; Eosinophils # (A) 0.2 k/uL (0-0.7); Eosinophils % (A) 3 %; HCT 48.6 % (39.0-53.0); HDW 2.65; HGB 15.6 gm/dL (13.0-17.5); Luc # (Auto) 0.16; Luc % (Auto) 2; Lymphocytes # (A) 2.5 k/uL (1.0-4.8); Lymphocytes % (A) 30 %; MCH 28.9 pg (25.0-35.0); MCHC 32.1 g/dL (31.0-37.0); MCV 90.2 fL (80.0-100.0); Mean Platelet Volume 7.7; Monocytes # (A) 0.7 k/uL (0-1.0); Monocytes % (A) 8 %; Neutrophils # (A) 4.8 k/uL (1.3-7.7); Neutrophils % (A) 57 %; RBC 5.38 m/uL (4.30-5.90); RDW 14.9 % (11.5-15.5); WBC 8.4 k/uL (3.8-10.6); WBC (Perox) 7.92
[2017-01-27] MEDS: SODIUM CHLORIDE 0.9% 1,000 ML IV SCH ×3 (06:40→08:04)
[2017-01-27 06:43] LABS: Anion Gap 9 mmol/L; Blood Urea Nitrogen 16 mg/dL (9-20); Calcium 9.1 mg/dL (8.4-10.2); Carbon Dioxide 23 mmol/L (22-30); Chloride 110 mmol/L (98-107); Cholesterol 173 mg/dL (<200); Glucose 111 mg/dL (74-99); HDL Cholesterol 29 mg/dL (40-60); Non-African American GFR(MDRD) >60 (>60 ml/min/1.73 sqM); Sodium 142 mmol/L (137-145)
--- NOTE | 2017-01-27 08:23 | PCN ---
PTCA REPORT DATE OF PROCEDURE: 01/26/2017 PROCEDURE: PTCA and stenting of proximal tortuous dominant right coronary artery. PERFORMED BY: Dr. Arvind Wharton CLINICAL INFORMATION: Mr. Alcala is a 51-year-old gentleman who appears to have type 2 diabetes, hypertension, hyperlipidemia, came into the hospital with chest pain suggestive of angina. Patient underwent cardiac cath performed by Dr. Angely Fitzgerald, which revealed a proximal RCA stenosis of a very dominant vessel. He was advised intervention that was performed in the same setting. PROCEDURE NOTE: The existing 6-[place] introducer was in the right femoral artery was used to perform the procedure. I used a standard right Elaine type guide catheter of 6 [place] caliber to cannulate the right coronary artery. A BMW wire was initially used and I predilated the lesions of 2.5 caliber 12 mm long trek balloon. I then lost the guide support. I went back with the same guide catheter and this time using a Whisper wire I kept the wire distally and used a 3.5 caliber 15 mm long Xience stent and deployed this at 14 atmospheres. Patient did not have any chest discomfort nor did he have any significant EKG changes. Excellent angiographic results was achieved. I tried to predilate with larger balloon but I noticed that the guide support was insufficient and the lesion sight looked excellent with full expansion of the stent angiographically. I therefore recommended that we will not do any postdilatation and left him with 3.5 caliber Xience stent which was expanded at 14 atmospheres up to nearly 3.7. The sheath was taken out and I tried to apply Angio-Seal but I had difficulty and there was a defective Angio-Seal which came through the sheath and therefore manual pressure was used and he will be on a FemoStop for 4 hours. Findings were discussed with the patient and family. Excellent angiographic results were achieved. He will be sent to his room in stable condition. He already received Brilinta and also received Angiomax and bolus and infusion as per protocol. Moderate conscious sedation was provided for 40 minutes. The patient tolerated the procedure well without complications. Excellent angiographic result was achieved. SHAY
[2017-01-27 08:41] VITALS: RESP 16
[2017-01-27] MEDS: PANTOPRAZOLE 40 MG TABLET PO SCH (08:43)
[2017-01-27] MEDS: CITALOPRAM HYDROBROMIDE 20 MG TAB PO SCH (08:43)
[2017-01-27] MEDS: METOPROLOL TARTRATE 25 MG TAB PO SCH (08:43)
[2017-01-27] MEDS: amLODIPine 10 MG TAB PO SCH (08:43)
[2017-01-27] MEDS: LOSARTAN 50 MG TAB PO SCH (08:43)
[2017-01-27] MEDS: TICAGRELOR 90 MG TAB PO SCH ×2 (08:43→16:15)
[2017-01-27] MEDS ORDERED: ASPIRIN 325 MG TAB PO SCH (09:00)
[2017-01-27] MEDS ORDERED: ASPIRIN 81 MG CHEW PO SCH (09:00)
--- NOTE | 2017-01-27 11:16 | ECHOF ---
Referral Reason:chest pain MEASUREMENTS -------- HEIGHT: 188.0 cm WEIGHT: 120.7 kg BP: 163/90 RVIDd: 3.1 cm (< 3.3) IVSd: 1.5 cm (0.6 - 1.1) LVIDd: 4.1 cm (3.9 - 5.3) LVPWd: 1.5 cm (0.6 - 1.1) IVSs: 2.0 cm LVIDs: 2.8 cm LVPWs: 2.2 cm LA Diam: 4.2 cm (2.7 - 3.8) LAESV Index (A-L): 36.87 ml/m Ao Diam: 3.4 cm (2.0 - 3.7) AV Cusp: 2.3 cm (1.5 - 2.6) MV E Christopher: 0.77 m/s MV DecT: 214 ms MV A Christopher: 0.66 m/s MV E/A Ratio: 1.16 RAP: 5.00 mmHg RVSP: 34.51 mmHg FINDINGS -------- Resting bradycardia (HR<60bpm). This was a technically difficult study with suboptimal apical views. The left ventricular size is normal. There is moderate concentric left ventricular hypertrophy. Overall left ventricular systolic function is normal with, an EF between 55 - 60 %. Mitral Doppler inflow pattern suggests diastolic filling abnormality 8.76. The right ventricle is mildly enlarged. LA is moderately dilated 34-39 ml/m2 The right atrium is normal in size. 1.5mg of Definity was utilized for enhancement of images Aortic valve is trileaflet and is mildly thickened. There is trace mitral regurgitation. Mild tricuspid regurgitation present. There is borderline pulmonary hypertension. There is no pulmonic regurgitation present. The aortic root size is normal. inferior vena cava with normal inspiratory collapse consistent with estimated right atrial pressure of 5 mmHg. The inferior vena cava is mildly dilated. There is no pericardial effusion. CONCLUSIONS -------- 1. Resting bradycardia (HR<60bpm). 2. 1.5mg of Definity was utilized for enhancement of images 3. Aortic valve is trileaflet and is mildly thickened. 4. There is trace mitral regurgitation. 5. Mild tricuspid regurgitation present. 6. There is borderline pulmonary hypertension. 7. There is no pulmonic regurgitation present. 8. The aortic root size is normal. 9. Normal inferior vena cava with normal inspiratory collapse consistent with estimated right atrial pressure of 5 mmHg. 10. The inferior vena cava is mildly dilated. 11. There is no pericardial effusion. 12. This was a technically difficult study with suboptimal apical views. 13. The left ventricular size is normal. 14. There is moderate concentric left ventricular hypertrophy. 15. Overall left ventricular systolic function is normal with, an EF between 55 - 60 %. 16. Mitral Doppler inflow pattern suggest diastolic filling abnormality 8.76. 17. The right ventricle is mildly enlarged. 18. LA is moderately dilated 34-39 ml/m2 19. The right atrium is normal in size. DIRECTOR OF CORPORATE SPONSORSHIPS: Corina Valerio RDCS
[2017-01-27 12:05] LABS: Glucose,Whole Blood 127 mg/dL (75-99)
--- NOTE | 2017-01-27 15:21 | P.DS ---
Providers Date of admission: 01/26/17 04:44 Attending physician: Joceline Awan Consults: 01/26/17 04:44 Consult Physician Routine Consulting Provider: Dana Fitzgerald Consult Reason/Comments: chest pain Do you want consulting provider notified?: Yes 01/26/17 15:02 Consult Physician Routine Consulting Provider: [facility] Consult Reason/Comments: Post Interventional patient Do you want consulting provider notified?: Already Contacted Primary care physician: Bharti Farrararlo [facility] Course: 51 yr old with history of HTN, ongoing tobacco use, DM2 comes into the hospital with sudden onset chest pressure across his midsternal region, non radiating. States that he may noted some mild pressure previously with ambulation however ignored it. Pt states his pain is relived after receiving medications in the er, ekg didnot reveal st t wave changes, bradycardia was noted Pt was recommended to undergo cardiac cath, was noted to have a proximal RCA lesion, underwent stenting. pt was seen in the post cath area denies having any chest pain, nausea, vomiting, chelsey, abdominal pain. - Constitutional General appearance: no acute distress - EENT Eyes: EOMI, PERRLA - Respiratory Respiratory: bilateral: CTA, negative: diminished, dullness, rales - Cardiovascular Rhythm: regular Heart sounds: normal: S1, S2 Abnormal Heart Sounds: no systolic murmur - Gastrointestinal General gastrointestinal: normal bowel sounds, no organomegaly, soft - Integumentary Integumentary: normal - Neurologic Neurologic: CNII-XII intact - Psychiatric Psychiatric: A&O x's 3 Plan: 1. Atypical chest pain, s/p RCA intervention 2. DM2 3. HTN 4. ONgoing tobacco use 5. Suspected ARNEL DAPT arb, b lisa atorvastatin 80 mg Patient Condition at Discharge: Good Plan - Discharge Summary New Discharge Prescriptions: New Aspirin 81 mg PO DAILY Atorvastatin [Lipitor] 80 mg PO HS #60 tab Metoprolol Tartrate [Lopressor] 25 mg PO BID #60 tab Ticagrelor [Brilinta] 90 mg PO BID #60 tab Continue amLODIPine BESYLATE [Norvasc] 10 mg PO DAILY Pantoprazole Sodium [Protonix] 40 mg PO DAILY EPINEPHrine [Epipen 2-Arnold] 0.3 mg IM ONCE PRN #2 ml PRN Reason: Allergic Reaction Losartan [Cozaar] 50 mg PO DAILY metFORMIN HCL [metFORMIN HCL ER] 1,000 mg PO BID Citalopram Hydrobromide [Citalopram HBr] 40 mg PO DAILY Acetaminophen Tab [Tylenol] 1,000 mg PO Q6HR PRN PRN Reason: Pain Empagliflozin [Jardiance] 10 mg PO DAILY Discontinued Metoprolol Succinate (ER) [Toprol XL] 100 mg PO DAILY Discharge Medication List Pantoprazole Sodium [Protonix] 40 mg PO DAILY 02/14/14 [History] amLODIPine BESYLATE [Norvasc] 10 mg PO DAILY 02/14/14 [History] EPINEPHrine [Epipen 2-Arnold] 0.3 mg IM ONCE PRN #2 ml 02/17/14 [Rx] Losartan [Cozaar] 50 mg PO DAILY 04/25/16 [History] Acetaminophen Tab [Tylenol] 1,000 mg PO Q6HR PRN 09/11/16 [History] Citalopram Hydrobromide [Citalopram HBr] 40 mg PO DAILY 09/11/16 [History] metFORMIN HCL [metFORMIN HCL ER] 1,000 mg PO BID 09/11/16 [History] Empagliflozin [Jardiance] 10 mg PO DAILY 01/26/17 [History] Aspirin 81 mg PO DAILY 01/27/17 [Rx] Atorvastatin [Lipitor] 80 mg PO HS #60 tab 01/27/17 [Rx] Metoprolol Tartrate [Lopressor] 25 mg PO BID #60 tab 01/27/17 [Rx] Ticagrelor [Brilinta] 90 mg PO BID #60 tab 01/27/17 [Rx] Follow up Appointment(s)/Referral(s): Bharti Amin DO [Primary Care Provider] - 1-2 days
--- NOTE | 2017-01-27 15:26 | P.PN ---
Subjective Principal diagnosis: non-STEMI this is a 51-year-old gentleman who presented to the hospital withsymptoms of chest discomfort. He was taken to the cardiac catheterization lab by Dr. VC Fitzgerald, subsequentlypatient underwent angioplasty with stent placement of the right coronary artery.EKG this morning showed normal sinus rhythm with no changes from post-PCI. Patient denies any further chest discomfort, breathing has been stable.CBC normal. Potassium 4.0, BUN 16, creatinine 0.7.BNP level 155. Objective - Vital Signs Vital signs: Vital Signs Temp 97.8 F 01/27/17 12:00 Pulse 58 L 01/27/17 12:00 Resp 16 01/27/17 12:00 BP 141/83 01/27/17 12:00 Pulse Ox 97 01/27/17 12:00 Intake & Output 01/26/17 01/27/17 01/27/17 18:59 06:59 18:59 Intake Total 290.5 900 360 Output Total 700 2600 Balance -409.5 -1700 360 Weight 117.7 kg Intake: IV 290.5 Intake, IV Titration 900 Amount Sodium Chloride 0.9% 1, 900 000 ml @ 75 mls/hr IV . [id number] ABDULAZIZ Rx#:[id number] Oral 360 Output: Urine 700 2600 Other: Voiding Method Toilet Toilet Toilet Urinal # Voids 1 1 # Bowel Movements 0 - Exam PHYSICAL EXAMINATION: HEENT: [Head is atraumatic, normocephalic. Pupils equal, round. Neck is supple. There is no elevated jugular venous pressure.] HEART EXAMINATION: [Heart S1, S2 normal. No murmur or gallop heard.] CHEST EXAMINATION:[ Lungs are clear to auscultation and precussion. No chest wall tenderness is noted on palpation or with deep breathing.] ABDOMEN: [ Soft, nontender. Bowel sounds are heard. No organomegaly noted]. right groin soft, evidence of significant ecchymosis, no hematoma, no bruit. EXTREMITIES:[ 2+ peripheral pulses with no evidence of peripheral edema and no calf tenderness noted]. NEUROLOGIC [patient is awake, alert and oriented -3.] . - Labs CBC & Chem 7: 01/27/17 06:00 01/27/17 05:58 Labs: Abnormal Lab Results - Last 24 Hours (Table) 01/26/17 01/26/17 01/27/17 Range/Units 15:43 17:23 05:58 Chloride 110 H (98-107) mmol/L Glucose 111 H (74-99) mg/dL POC Glucose (mg/dL) 127 H (75-99) mg/dL Hemoglobin A1c 7.0 H (4.2-6.1) % Triglycerides 322 H (<150) mg/dL HDL Cholesterol 29 L (40-60) mg/dL 01/27/17 01/27/17 Range/Units 06:25 12:04 Chloride (98-107) mmol/L Glucose (74-99) mg/dL POC Glucose (mg/dL) 117 H 127 H (75-99) mg/dL Hemoglobin A1c (4.2-6.1) % Triglycerides (<150) mg/dL HDL Cholesterol (40-60) mg/dL Assessment and Plan (1) S/P right coronary artery (RCA) stent placement Status: Acute (2) Diabetes Status: Acute (3) HTN (hypertension) Status: Acute (4) Hyperlipemia Status: Acute (5) Chest pain Status: Acute Plan: from cardiology's perspective, patient may be able to be discharged home today. We'll make him a follow-up appointment to see Dr. VC Fitzgerald in the office in one week.she will be discharged home on 8 aspirin 81 mg daily, Lipitor 80 mg daily,data prolonged 25 mg one tablet by mouth twice a day, losartan 50 mg daily , Protonix 40 mg daily, Brilinta 90 mg one tablet by mouth twice a day, sublingual nitroglycerin as needed for chest pain. Patient has been educated regarding his medication, diet, activity, and care of groin. DNP note has been reviewed, I agree with a documented findings and plan of care. Patient was seen and examined.
[2017-01-27 15:49] VITALS: BP 132/75; PULSE 54; TEMP 97.6
[2017-01-27] MEDS ORDERED: ATORVASTATIN 80 MG TAB PO SCH (21:00)
== END 2017-01-27 16:35 | disposition home or self-care (01) ==
LOC: EC 02:14 → 3OBS 04:44 → 6SEL 14:07
PROVIDERS: ADMIT Hospitalist; ATTEND Hospitalist
DX: I25.10 Atherosclerotic heart disease of native coronary artery without angina pectoris (principal); R07.89 Other chest pain; R00.1 Bradycardia, unspecified; E11.9 Type 2 diabetes mellitus without complications; I10 Essential (primary) hypertension; E78.5 Hyperlipidemia, unspecified; Z68.35 Body mass index [BMI] 35.0-35.9, adult; E66.9 Obesity, unspecified; F32.9 Major depressive disorder, single episode, unspecified; K21.9 Gastro-esophageal reflux disease without esophagitis; F17.200 Nicotine dependence, unspecified, uncomplicated; Z79.899 Other long term (current) drug therapy; Z79.84 Long term (current) use of oral hypoglycemic drugs; Z88.5 Allergy status to narcotic agent; Z91.030 Bee allergy status; Z80.52 Family history of malignant neoplasm of bladder; Z87.442 Personal history of urinary calculi
CPT/HCPCS: 99285 ×2; 96372; 36415; 93005; 93306; 93458; 83880; 80061; 80053; 80048; 82150; 83036; 82550; 82553; 83690; 83735; 84484; 85025 ×2; 71010; G0378 ×3; C9600; C1769 ×3; C1760; C1887; C1725 ×2; C1894; C1874; J2001; J2250; J1200; J3010; J1650; Q9957; J0583; Q9967

== ENCOUNTER 2017-02-19 12:31 | Observation (INO) | payer BC ==
[2017-02-19] MEDS ORDERED: NITROGLYCERIN SL TABS 0.4 MG TAB SUBLINGUAL STA (13:20)
[2017-02-19 13:44] LABS: Basophils # (A) 0.1 k/uL (0-0.2); Basophils % (A) 1 %; CH 30.1; CHCM 33.9; Eosinophils # (A) 0.2 k/uL (0-0.7); Eosinophils % (A) 2 %; HCT 49.9 % (39.0-53.0); HDW 2.66; HGB 16.4 gm/dL (13.0-17.5); Luc # (Auto) 0.29; Luc % (Auto) 4; Lymphocytes # (A) 2.3 k/uL (1.0-4.8); Lymphocytes % (A) 27 %; MCH 29.3 pg (25.0-35.0); MCHC 32.8 g/dL (31.0-37.0); MCV 89.4 fL (80.0-100.0); Monocytes # (A) 0.5 k/uL (0-1.0); Monocytes % (A) 6 %; Neutrophils % (A) 60 %; RBC 5.58 m/uL (4.30-5.90); RDW 15.4 % (11.5-15.5); WBC 8.3 k/uL (3.8-10.6); WBC (Perox) 8.21
[2017-02-19 13:54] LABS: Partial Thromboplastin Time 25.2 sec (22.0-30.0); Prothrombin Time 10.1 sec (9.0-12.0)
[2017-02-19 13:55] LABS: ALT 49 U/L (21-72); AST 29 U/L (17-59); Alkaline Phosphatase 100 U/L (38-126); Anion Gap 13 mmol/L; Blood Urea Nitrogen 17 mg/dL (9-20); Calcium 9.6 mg/dL (8.4-10.2); Carbon Dioxide 24 mmol/L (22-30); Chloride 106 mmol/L (98-107); Glucose 118 mg/dL (74-99); Magnesium 1.9 mg/dL (1.6-2.3); Non-African American GFR(MDRD) >60 (>60 ml/min/1.73 sqM); Sodium 143 mmol/L (137-145); Total Bilirubin 0.6 mg/dL (0.2-1.3); Total Protein 7.2 g/dL (6.3-8.2)
--- NOTE | 2017-02-19 14:01 | XR ---
EXAMINATION TYPE: XR chest 2V DATE OF EXAM: 02/19/2017 COMPARISON: NONE HISTORY: Chest pain after heart catheterization weeks ago. TECHNIQUE: Frontal and lateral views of the chest are obtained. FINDINGS: There is no focal air space opacity, pleural effusion, or pneumothorax seen. The cardiac silhouette size is within normal limits. The osseous structures are intact. IMPRESSION: No acute cardiopulmonary process.
[2017-02-19 14:10] LABS: Creatine Kinase 103 U/L (55-170)
[2017-02-19 14:23] LABS: Troponin I <0.012 ng/mL (0.000-0.034)
[2017-02-19] MEDS ORDERED: ACETAMINOPHEN TAB 325 MG TAB PO PRN (14:52)
[2017-02-19] MEDS ORDERED: NALOXONE 0.4 MG/ML 1 ML VIAL IV PRN (14:52)
[2017-02-19] MEDS ORDERED: ONDANSETRON 4 MG/2 ML VIAL IVP PRN (14:52)
[2017-02-19] MEDS: SODIUM CHLORIDE 0.9% 1,000 ML IV SCH (15:08)
--- NOTE | 2017-02-19 15:09 | ED ---
General Adult HPI - General Chief complaint: Chest Pain Stated complaint: Chest Pain Time Seen by Provider: 02/19/17 12:47 Source: patient, family, RN notes reviewed, old records reviewed Mode of arrival: ambulatory Limitations: no limitations - History of Present Illness Initial comments: 51-year-old male presents with chief complaint of chest pain. Patient reports a 2 day history of chest heaviness. This is essentially located. Nonradiating although the patient does report some back pain between shoulder blades. This is been relieved with massage from his . Patient recently had heart catheterization with stent placement on January 26 of this year. Patient called his photo colorer who recommended he be evaluated in the emergency department. Patient also reports a mild cough with some sputum this is been resolving. No fever. He does have a history of significant tobacco smoking, stating he quit approximately one month ago. Denies any nausea or vomiting denies any diaphoresis. This is not the same pain he had with his heart attack 3 weeks ago. He does have a past medical history of hypertension, diabetes. He has been ambulatory on aspirin as well as his other medications. He denies missing any of his medications. - Related Data Home Medications Medication Instructions Recorded Confirmed Pantoprazole Sodium [Protonix] 40 mg PO DAILY 02/14/14 02/19/17 amLODIPine BESYLATE [Norvasc] 10 mg PO DAILY 02/14/14 02/19/17 Losartan [Cozaar] 50 mg PO DAILY 04/25/16 02/19/17 Acetaminophen Tab [Tylenol] 1,000 mg PO Q6HR PRN 09/11/16 02/19/17 Citalopram Hydrobromide 40 mg PO DAILY 09/11/16 02/19/17 [Citalopram HBr] metFORMIN HCL [metFORMIN HCL ER] 1,000 mg PO BID 09/11/16 02/19/17 Empagliflozin [Jardiance] 10 mg PO DAILY 01/26/17 02/19/17 Previous Rx's Medication Instructions Recorded EPINEPHrine [Epipen 2-Arnold] 0.3 mg IM ONCE PRN #2 ml 02/17/14 Aspirin 81 mg PO DAILY 01/27/17 Atorvastatin [Lipitor] 80 mg PO HS #60 tab 01/27/17 Metoprolol Tartrate [Lopressor] 25 mg PO BID #60 tab 01/27/17 Ticagrelor [Brilinta] 90 mg PO BID #60 tab 01/27/17 Allergies Allergy/AdvReac Type Severity Reaction Status Date / Time oxycodone HCl [From Percocet] Allergy Anaphylaxis Verified 02/19/17 14:20 venom-honey bee Allergy Swelling Verified 02/19/17 14:20 [bee venom (honey bee)] codeine AdvReac Itching Verified 02/19/17 14:20 Review of Systems ROS Statement: Those systems with pertinent positive or pertinent negative responses have been documented in the HPI. ROS Other: All systems not noted in ROS Statement are negative. Past Medical History Past Medical History: Diabetes Mellitus, GERD/Reflux, Hypertension Additional Past Medical History / Comment(s): kidney stones History of Any Multi-Drug Resistant Organisms: None Reported Past Surgical History: Orthopedic Surgery Additional Past Surgical History / Comment(s): FASCIOTOMY BILAT HANDS, LT FOOT SURGERY, MUSCLE BIOPSY RT LEG, right shoulder arthroscopy Past Anesthesia/Blood Transfusion Reactions: No Reported Reaction Past Psychological History: Depression Smoking Status: Current every day smoker Past Alcohol Use History: None Reported Past Drug Use History: None Reported - Past Family History Father Family Medical History: Coronary Artery Disease (CAD), Diabetes Mellitus, Prostate Disorder Additional Family Medical History / Comment(s): st. caths at home Sister(s) Family Medical History: Diabetes Mellitus Mother Family Medical History: Cancer, COPD, Fibromyalgia Additional Family Medical History / Comment(s): Bladder CA General Exam Limitations: no limitations General appearance: alert, in no apparent distress Head exam: Present: atraumatic, normocephalic Eye exam: Present: normal appearance, PERRL, EOMI ENT exam: Present: normal exam, normal oropharynx Neck exam: Present: normal inspection. Absent: tenderness, meningismus Respiratory exam: Present: normal lung sounds bilaterally. Absent: respiratory distress, wheezes Cardiovascular Exam: Present: regular rate, normal rhythm, other (No Rub. ) GI/Abdominal exam: Present: soft. Absent: distended, tenderness, guarding Extremities exam: Present: normal inspection, normal capillary refill. Absent: pedal edema, calf tenderness Back exam: Present: normal inspection, full ROM. Absent: tenderness Neurological exam: Present: alert, oriented X3, CN II-XII intact. Absent: motor sensory deficit Psychiatric exam: Present: normal affect, normal mood Skin exam: Present: warm, dry, intact. Absent: cyanosis, diaphoretic Course Vital Signs 02/19/17 02/19/17 02/19/17 12:42 13:34 13:39 Temperature 97.9 F Pulse Rate 66 60 68 Respiratory 18 18 18 Rate Blood Pressure 151/92 127/64 118/62 O2 Sat by Pulse 96 99 96 Oximetry - Reevaluation(s) Reevaluation #1: 02/19/17 15:06 Patient's chest tightness is unchanged by nitroglycerin. He continues to report minimal symptoms. EKG Findings - EKG Comments: EKG Findings:: EKG shows normal sinus rhythm, ventricular rate is 64, LA interval 186, QRS duration 14, QTC 431, there is no ST segment elevation or depression no signs of acute ischemia Medical Decision Making - Medical Decision Making 51-year-old male presenting with chest tightness and heaviness. Patient is 3 weeks status post heart catheterization with stent placement. He denies missing any of his medications. His pain is not similar to his pain prior to her catheterization. He also does report a mild cough and sputum production which is resolving. Pain is nonreproducible on examination. EKG is nonischemic. Chest x-ray shows no acute process. Laboratory studies including CBC, CMP, cardiac enzymes is all within normal limits. Case is discussed with cardiology on-call and recommended observation for serial troponins and reevaluation. Diagnosis: Chest pain - Lab Data Result diagrams: 02/19/17 12:56 02/19/17 12:56 Lab Results 02/19/17 02/19/17 02/19/17 Range/Units 12:56 12:56 12:56 WBC 8.3 (3.8-10.6) k/uL RBC 5.58 (4.30-5.90) m/uL Hgb 16.4 (13.0-17.5) gm/dL Hct 49.9 (39.0-53.0) % MCV 89.4 (80.0-100.0) fL MCH 29.3 (25.0-35.0) pg MCHC 32.8 (31.0-37.0) g/dL RDW 15.4 (11.5-15.5) % Plt Count 220 (150-450) k/uL Neutrophils % 60 % Lymphocytes % 27 % Monocytes % 6 % Eosinophils % 2 % Basophils % 1 % Neutrophils # 5.0 (1.3-7.7) k/uL Lymphocytes # 2.3 (1.0-4.8) k/uL Monocytes # 0.5 (0-1.0) k/uL Eosinophils # 0.2 (0-0.7) k/uL Basophils # 0.1 (0-0.2) k/uL PT (9.0-12.0) sec INR (<1.2) APTT (22.0-30.0) sec Sodium 143 (137-145) mmol/L Potassium 4.0 (3.5-5.1) mmol/L Chloride 106 (98-107) mmol/L Carbon Dioxide 24 (22-30) mmol/L Anion Gap 13 mmol/L BUN 17 (9-20) mg/dL Creatinine 0.73 (0.66-1.25) mg/dL Est GFR (MDRD) Af Amer >60 (>60 ml/min/1.73 sqM) Est GFR (MDRD) Non-Af >60 (>60 ml/min/1.73 sqM) Glucose 118 H (74-99) mg/dL Calcium 9.6 (8.4-10.2) mg/dL Magnesium 1.9 (1.6-2.3) mg/dL Total Bilirubin 0.6 (0.2-1.3) mg/dL AST 29 (17-59) U/L ALT 49 (21-72) U/L Alkaline Phosphatase 100 (38-126) U/L Total Creatine Kinase 103 (55-170) U/L CK-MB (CK-2) 1.0 (0.0-2.4) ng/mL CK-MB (CK-2) Rel Index 1.0 Troponin I <0.012 (0.000-0.034) ng/mL Total Protein 7.2 (6.3-8.2) g/dL Albumin 4.5 (3.5-5.0) g/dL 02/19/17 Range/Units 12:56 WBC (3.8-10.6) k/uL RBC (4.30-5.90) m/uL Hgb (13.0-17.5) gm/dL Hct (39.0-53.0) % MCV (80.0-100.0) fL MCH (25.0-35.0) pg MCHC (31.0-37.0) g/dL RDW (11.5-15.5) % Plt Count (150-450) k/uL Neutrophils % % Lymphocytes % % Monocytes % % Eosinophils % % Basophils % % Neutrophils # (1.3-7.7) k/uL Lymphocytes # (1.0-4.8) k/uL Monocytes # (0-1.0) k/uL Eosinophils # (0-0.7) k/uL Basophils # (0-0.2) k/uL PT 10.1 (9.0-12.0) sec INR 1.0 (<1.2) APTT 25.2 (22.0-30.0) sec Sodium (137-145) mmol/L Potassium (3.5-5.1) mmol/L Chloride (98-107) mmol/L Carbon Dioxide (22-30) mmol/L Anion Gap mmol/L BUN (9-20) mg/dL Creatinine (0.66-1.25) mg/dL Est GFR (MDRD) Af Amer (>60 ml/min/1.73 sqM) Est GFR (MDRD) Non-Af (>60 ml/min/1.73 sqM) Glucose (74-99) mg/dL Calcium (8.4-10.2) mg/dL Magnesium (1.6-2.3) mg/dL Total Bilirubin (0.2-1.3) mg/dL AST (17-59) U/L ALT (21-72) U/L Alkaline Phosphatase (38-126) U/L Total Creatine Kinase (55-170) U/L CK-MB (CK-2) (0.0-2.4) ng/mL CK-MB (CK-2) Rel Index Troponin I (0.000-0.034) ng/mL Total Protein (6.3-8.2) g/dL Albumin (3.5-5.0) g/dL Disposition Clinical Impression: Chest pain Disposition: [facility] Condition: Stable Referrals: Bharti Amin DO [Primary Care Provider] - 1-2 days Decision to Admit Reason: Admit from EC Decision Date: 02/19/17 Decision Time: 15:08
[2017-02-19 16:16] LABS: Glucose,Whole Blood 118 mg/dL (75-99)
[2017-02-19] MEDS ORDERED: ALPRAZolam 0.25 MG TAB PO PRN (18:46)
[2017-02-19] MEDS ORDERED: ALPRAZolam 0.5 MG TAB PO PRN (18:46)
[2017-02-19 19:32] VITALS: RESP 18
[2017-02-19 20:25] LABS: Glucose,Whole Blood 123 mg/dL (75-99)
[2017-02-19] MEDS: TICAGRELOR 90 MG TAB PO SCH (20:32)
[2017-02-19] MEDS: METOPROLOL TARTRATE 25 MG TAB PO SCH (20:32)
[2017-02-19 20:37] LABS: Creatine Kinase 82 U/L (55-170)
[2017-02-19] MEDS: INSULIN LISPRO (humaLOG) 300 UNIT/3 ML VIAL SQ SCH (20:39)
[2017-02-19 20:49] LABS: Creatine Kinase MB 0.7 ng/mL (0.0-2.4); Troponin I <0.012 ng/mL (0.000-0.034)
[2017-02-19] MEDS ORDERED: metFORMIN 500 MG TAB PO SCH (21:00)
[2017-02-19] MEDS ORDERED: ATORVASTATIN 80 MG TAB PO SCH (21:00)
[2017-02-20 02:06] LABS: Creatine Kinase 79 U/L (55-170)
[2017-02-20 02:18] LABS: Creatine Kinase MB 0.6 ng/mL (0.0-2.4); Troponin I <0.012 ng/mL (0.000-0.034)
[2017-02-20 06:53] LABS: Glucose,Whole Blood 114 mg/dL (75-99)
[2017-02-20] MEDS ORDERED: PANTOPRAZOLE 40 MG TABLET PO SCH (07:30)
[2017-02-20] MEDS: INSULIN LISPRO (humaLOG) 300 UNIT/3 ML VIAL SQ SCH ×2 (08:59→12:17)
[2017-02-20] MEDS ORDERED: amLODIPine 10 MG TAB PO SCH (09:00)
[2017-02-20] MEDS ORDERED: LOSARTAN 50 MG TAB PO SCH (09:00)
[2017-02-20] MEDS ORDERED: ASPIRIN 81 MG PO SCH (09:00)
[2017-02-20] MEDS ORDERED: CITALOPRAM HYDROBROMIDE 20 MG TAB PO SCH (09:00)
[2017-02-20] MEDS: SODIUM CHLORIDE 0.9% 1,000 ML IV SCH (09:01)
[2017-02-20] MEDS: METOPROLOL TARTRATE 25 MG TAB PO SCH (11:23)
[2017-02-20] MEDS: TICAGRELOR 90 MG TAB PO SCH (11:23)
[2017-02-20 11:40] VITALS: BP 137/76; PULSE 60; TEMP 97.9
--- NOTE | 2017-02-20 12:03 | P.CRDCN ---
History of Present Illness History of present illness: Patient presented with some discomfort in the chest which is completely different from the discomfort that he experienced prior to the stenting for coronary artery disease. The character of the discomfort is completely different. After the stent he was able to walk comfortably without getting short of breath or sweating. That he would've a hard time walking and he would be sweating a lot prior to that stent. Now he is able to walk comfortably without any problems and has been doing so in the hallways in the hospital to he walked about half a mile yesterday without any problems. The other thing that concerned his was shortness of breath while reading and email under a stressful situation. However he does not get short of breath when he walks half a mile Examination is normal EKG is normal Enzymes are normal Plan Patient may go home and continue cardiac medications follow-up with Dr. Fitzgerald and proceed with stress testing on Wednesday. Please see full dictation by nurse practitioner Past Medical History Past Medical History: Chest Pain / Angina, Diabetes Mellitus, GERD/Reflux, Hypertension, Sleep Apnea/CPAP/BIPAP Additional Past Medical History / Comment(s): kidney stone. History of Any Multi-Drug Resistant Organisms: None Reported Past Surgical History: Heart Catheterization With Stent, Orthopedic Surgery Additional Past Surgical History / Comment(s): FASCIOTOMY BILAT HANDS, LT FOOT SURGERY, MUSCLE BIOPSY RT LEG, right shoulder arthroscopy Past Anesthesia/Blood Transfusion Reactions: No Reported Reaction Date of Last Stent Placement:: jan 2017 Smoking Status: Former smoker - Past Family History Father Family Medical History: Coronary Artery Disease (CAD), Diabetes Mellitus, Prostate Disorder Additional Family Medical History / Comment(s): st. caths at home Sister(s) Family Medical History: Diabetes Mellitus Mother Family Medical History: Cancer, COPD, Fibromyalgia Additional Family Medical History / Comment(s): Bladder CA Medications and Allergies Home Medications Medication Instructions Recorded Confirmed Type Pantoprazole Sodium [Protonix] 40 mg PO DAILY 02/14/14 02/19/17 History amLODIPine BESYLATE [Norvasc] 10 mg PO DAILY 02/14/14 02/19/17 History Losartan [Cozaar] 50 mg PO DAILY 04/25/16 02/19/17 History Acetaminophen Tab [Tylenol] 1,000 mg PO Q6HR PRN 09/11/16 02/19/17 History Citalopram Hydrobromide 40 mg PO DAILY 09/11/16 02/19/17 History [Citalopram HBr] metFORMIN HCL [metFORMIN HCL ER] 1,000 mg PO BID 09/11/16 02/19/17 History Empagliflozin [Jardiance] 10 mg PO DAILY 01/26/17 02/19/17 History Allergies Allergy/AdvReac Type Severity Reaction Status Date / Time oxycodone HCl [From Percocet] Allergy Anaphylaxis Verified 02/19/17 14:20 venom-honey bee Allergy Swelling Verified 02/19/17 14:20 [bee venom (honey bee)] codeine AdvReac Itching Verified 02/19/17 14:20 Physical Exam Vitals: Vital Signs Temp Pulse Pulse Resp BP BP Pulse Ox 02/20/17 11:39 97.9 F 60 18 137/76 96 02/20/17 08:00 97.8 F 55 L 18 148/91 97 02/20/17 04:00 97.9 F 50 L 18 143/90 95 02/19/17 23:45 54 L 18 02/19/17 22:58 55 L 18 142/66 95 02/19/17 20:00 54 L 18 02/19/17 19:31 98.2 F 55 L 18 149/78 99 02/19/17 16:35 97.6 F 58 L 16 157/80 94 L 02/19/17 15:26 99.1 F 58 L 17 124/66 100 02/19/17 13:39 68 18 118/62 96 02/19/17 13:34 60 18 127/64 99 02/19/17 12:42 97.9 F 66 18 151/92 96 Intake and Output 02/19/17 02/20/17 02/20/17 22:59 06:59 14:59 Other: Voiding Method Toilet Toilet Toilet # Voids 3 Weight 119 kg Results 02/19/17 12:56 02/19/17 12:56 Cardiac Enzymes 02/19/17 02/19/17 02/19/17 Range/Units 12:56 12:56 19:39 AST 29 (17-59) U/L CK-MB (CK-2) 1.0 0.7 (0.0-2.4) ng/mL Troponin I <0.012 <0.012 (0.000-0.034) ng/mL 02/20/17 Range/Units 01:12 AST (17-59) U/L CK-MB (CK-2) 0.6 (0.0-2.4) ng/mL Troponin I <0.012 (0.000-0.034) ng/mL Coagulation 02/19/17 Range/Units 12:56 PT 10.1 (9.0-12.0) sec APTT 25.2 (22.0-30.0) sec CBC 02/19/17 Range/Units 12:56 WBC 8.3 (3.8-10.6) k/uL RBC 5.58 (4.30-5.90) m/uL Hgb 16.4 (13.0-17.5) gm/dL Hct 49.9 (39.0-53.0) % Plt Count 220 (150-450) k/uL Comprehensive Metabolic Panel 02/19/17 Range/Units 12:56 Sodium 143 (137-145) mmol/L Potassium 4.0 (3.5-5.1) mmol/L Chloride 106 (98-107) mmol/L Carbon Dioxide 24 (22-30) mmol/L BUN 17 (9-20) mg/dL Creatinine 0.73 (0.66-1.25) mg/dL Glucose 118 H (74-99) mg/dL Calcium 9.6 (8.4-10.2) mg/dL AST 29 (17-59) U/L ALT 49 (21-72) U/L Alkaline Phosphatase 100 (38-126) U/L Total Protein 7.2 (6.3-8.2) g/dL Albumin 4.5 (3.5-5.0) g/dL Current Medications Generic Name Dose Route Start Last Admin Trade Name Freq PRN Reason Stop Dose Admin Acetaminophen 650 mg 02/19/17 14:52 Tylenol Tab PO Q6HR PRN Mild Pain or Fever > 100.5 Alprazolam 0.25 mg 02/19/17 18:46 Xanax PO QID PRN Mild Anxiety Alprazolam 0.5 mg 02/19/17 18:46 02/19/17 20:31 Xanax PO 0.5 mg QID PRN Administration Moderate Anxiety Amlodipine Besylate 10 mg 02/20/17 09:00 02/20/17 11:24 Norvasc PO 10 mg DAILY ABDULAZIZ Administration Aspirin 81 mg 02/20/17 09:00 02/20/17 09:03 Aspirin PO 81 mg DAILY ABDULAZIZ Administration Atorvastatin Calcium 80 mg 02/19/17 21:00 02/19/17 20:32 Lipitor PO 80 mg HS ABDULAZIZ Administration Citalopram Hydrobromide 40 mg 02/20/17 09:00 02/20/17 09:03 Celexa PO 40 mg DAILY ABDULAZIZ Administration Sodium Chloride 1,000 mls @ 75 mls/hr 02/19/17 15:00 02/20/17 09:01 Saline 0.9% IV Not Given .[id number] [facility] Insulin Human Lispro 0 unit 02/19/17 21:00 02/20/17 08:59 Humalog SQ Not Given ACHS [facility] Protocol Losartan Potassium 50 mg 02/20/17 09:00 02/20/17 11:24 Cozaar PO 50 mg DAILY [facility] Administration Metformin HCl 1,000 mg 02/19/17 21:00 Glucophage PO BID [facility] Metoprolol Tartrate 25 mg 02/19/17 21:00 02/20/17 11:23 Lopressor PO 25 mg BID [facility] Administration Naloxone HCl 0.2 mg 02/19/17 14:52 Narcan IV Q2M PRN Opioid Reversal Ondansetron HCl 4 mg 02/19/17 14:52 Zofran IVP Q8HR PRN Nausea And Vomiting Pantoprazole Sodium 40 mg 02/20/17 07:30 02/20/17 09:03 Protonix PO 40 mg [id number] [facility] Administration Ticagrelor 90 mg 02/19/17 21:00 02/20/17 11:23 Brilinta PO 90 mg BID [facility] Administration Intake and Output 02/19/17 02/20/17 02/20/17 22:59 06:59 14:59 Other: Voiding Method Toilet Toilet Toilet # Voids 3 Weight 119 kg 02/19/17 12:56 02/19/17 12:56
[2017-02-20 12:08] LABS: Glucose,Whole Blood 132 mg/dL (75-99)
--- NOTE | 2017-02-20 12:15 | P.CRDCN ---
History of Present Illness Consult date: 02/20/17 Reason for Consult (text): chest pain Chief complaint: right-sided chest discomfort History of present illness: This is a pleasant 51-year-old gentleman with a history of coronary artery disease with stenting of his RCA in January of this year. At that time patient had complaints of chest burning with diaphoresis and nausea as well as shortness of breath. Upon presentation this admission, patient complained of a strange sensation in the right side of his chest that seems to be constant and not related to exertion. He had one episode of shortness of breath while reading and email under stressful situation however has no difficulties walking half a mile. EKG on admission shows sinus rhythm without acute ST-T wave abnormalities. Troponins have been negative 3. On examination, patient continues to feel strange sensation in his chest. Does not appear to be in any acute distress. Past Medical History Past Medical History: Chest Pain / Angina, Diabetes Mellitus, GERD/Reflux, Hypertension, Sleep Apnea/CPAP/BIPAP Additional Past Medical History / Comment(s): kidney stone. History of Any Multi-Drug Resistant Organisms: None Reported Past Surgical History: Heart Catheterization With Stent, Orthopedic Surgery Additional Past Surgical History / Comment(s): FASCIOTOMY BILAT HANDS, LT FOOT SURGERY, MUSCLE BIOPSY RT LEG, right shoulder arthroscopy Past Anesthesia/Blood Transfusion Reactions: No Reported Reaction Date of Last Stent Placement:: jan 2017 Smoking Status: Former smoker - Past Family History Father Family Medical History: Coronary Artery Disease (CAD), Diabetes Mellitus, Prostate Disorder Additional Family Medical History / Comment(s): st. caths at home Sister(s) Family Medical History: Diabetes Mellitus Mother Family Medical History: Cancer, COPD, Fibromyalgia Additional Family Medical History / Comment(s): Bladder CA Medications and Allergies Home Medications Medication Instructions Recorded Confirmed Type Pantoprazole Sodium [Protonix] 40 mg PO DAILY 02/14/14 02/19/17 History amLODIPine BESYLATE [Norvasc] 10 mg PO DAILY 02/14/14 02/19/17 History Losartan [Cozaar] 50 mg PO DAILY 04/25/16 02/19/17 History Acetaminophen Tab [Tylenol] 1,000 mg PO Q6HR PRN 09/11/16 02/19/17 History Citalopram Hydrobromide 40 mg PO DAILY 09/11/16 02/19/17 History [Citalopram HBr] metFORMIN HCL [metFORMIN HCL ER] 1,000 mg PO BID 09/11/16 02/19/17 History Empagliflozin [Jardiance] 10 mg PO DAILY 01/26/17 02/19/17 History Allergies Allergy/AdvReac Type Severity Reaction Status Date / Time oxycodone HCl [From Percocet] Allergy Anaphylaxis Verified 02/19/17 14:20 venom-honey bee Allergy Swelling Verified 02/19/17 14:20 [bee venom (honey bee)] codeine AdvReac Itching Verified 02/19/17 14:20 Physical Exam Vitals: Vital Signs Temp Pulse Pulse Resp BP BP Pulse Ox 02/20/17 11:39 97.9 F 60 18 137/76 96 02/20/17 08:00 97.8 F 55 L 18 148/91 97 02/20/17 04:00 97.9 F 50 L 18 143/90 95 02/19/17 23:45 54 L 18 02/19/17 22:58 55 L 18 142/66 95 02/19/17 20:00 54 L 18 02/19/17 19:31 98.2 F 55 L 18 149/78 99 02/19/17 16:35 97.6 F 58 L 16 157/80 94 L 02/19/17 15:26 99.1 F 58 L 17 124/66 100 02/19/17 13:39 68 18 118/62 96 02/19/17 13:34 60 18 127/64 99 02/19/17 12:42 97.9 F 66 18 151/92 96 Intake and Output 02/19/17 02/20/17 02/20/17 22:59 06:59 14:59 Other: Voiding Method Toilet Toilet Toilet # Voids 3 Weight 119 kg PHYSICAL EXAMINATION: HEENT: Head is atraumatic, normocephalic. Pupils equal, round. Neck is supple. There is no elevated jugular venous pressure. HEART EXAMINATION: Heart sounds regular, S1 and S2 normal. No murmur or gallop heard. CHEST EXAMINATION: Lungs are clear to auscultation and precussion. No chest wall tenderness is noted on palpation or with deep breathing. ABDOMEN: Soft, nontender. Bowel sounds are heard. No organomegaly noted. EXTREMITIES: 2+ peripheral pulses with no evidence of peripheral edema and no calf tenderness noted. NEUROLOGIC patient is awake, alert and oriented x3. . Results 02/19/17 12:56 02/19/17 12:56 Cardiac Enzymes 02/19/17 02/19/17 02/19/17 Range/Units 12:56 12:56 19:39 AST 29 (17-59) U/L CK-MB (CK-2) 1.0 0.7 (0.0-2.4) ng/mL Troponin I <0.012 <0.012 (0.000-0.034) ng/mL 02/20/17 Range/Units 01:12 AST (17-59) U/L CK-MB (CK-2) 0.6 (0.0-2.4) ng/mL Troponin I <0.012 (0.000-0.034) ng/mL Coagulation 02/19/17 Range/Units 12:56 PT 10.1 (9.0-12.0) sec APTT 25.2 (22.0-30.0) sec CBC 02/19/17 Range/Units 12:56 WBC 8.3 (3.8-10.6) k/uL RBC 5.58 (4.30-5.90) m/uL Hgb 16.4 (13.0-17.5) gm/dL Hct 49.9 (39.0-53.0) % Plt Count 220 (150-450) k/uL Comprehensive Metabolic Panel 02/19/17 Range/Units 12:56 Sodium 143 (137-145) mmol/L Potassium 4.0 (3.5-5.1) mmol/L Chloride 106 (98-107) mmol/L Carbon Dioxide 24 (22-30) mmol/L BUN 17 (9-20) mg/dL Creatinine 0.73 (0.66-1.25) mg/dL Glucose 118 H (74-99) mg/dL Calcium 9.6 (8.4-10.2) mg/dL AST 29 (17-59) U/L ALT 49 (21-72) U/L Alkaline Phosphatase 100 (38-126) U/L Total Protein 7.2 (6.3-8.2) g/dL Albumin 4.5 (3.5-5.0) g/dL Current Medications Generic Name Dose Route Start Last Admin Trade Name Freq PRN Reason Stop Dose Admin Acetaminophen 650 mg 02/19/17 14:52 Tylenol Tab PO Q6HR PRN Mild Pain or Fever > 100.5 Alprazolam 0.25 mg 02/19/17 18:46 Xanax PO QID PRN Mild Anxiety Alprazolam 0.5 mg 02/19/17 18:46 02/19/17 20:31 Xanax PO 0.5 mg QID PRN Administration Moderate Anxiety Amlodipine Besylate 10 mg 02/20/17 09:00 02/20/17 11:24 Norvasc PO 10 mg DAILY ABDULAZIZ Administration Aspirin 81 mg 02/20/17 09:00 02/20/17 09:03 Aspirin PO 81 mg DAILY [facility] Administration Atorvastatin Calcium 80 mg 02/19/17 21:00 02/19/17 20:32 Lipitor PO 80 mg HS [facility] Administration Citalopram Hydrobromide 40 mg 02/20/17 09:00 02/20/17 09:03 Celexa PO 40 mg DAILY [facility] Administration Sodium Chloride 1,000 mls @ 75 mls/hr 02/19/17 15:00 02/20/17 09:01 Saline 0.9% IV Not Given .[id number] [facility] Insulin Human Lispro 0 unit 02/19/17 21:00 02/20/17 08:59 Humalog SQ Not Given [facility] Protocol Losartan Potassium 50 mg 02/20/17 09:00 02/20/17 11:24 Cozaar PO 50 mg DAILY [facility] Administration Metformin HCl 1,000 mg 02/19/17 21:00 Glucophage PO BID [facility] Metoprolol Tartrate 25 mg 02/19/17 21:00 02/20/17 11:23 Lopressor PO 25 mg BID [facility] Administration Naloxone HCl 0.2 mg 02/19/17 14:52 Narcan IV Q2M PRN Opioid Reversal Ondansetron HCl 4 mg 02/19/17 14:52 Zofran IVP Q8HR PRN Nausea And Vomiting Pantoprazole Sodium 40 mg 02/20/17 07:30 02/20/17 09:03 Protonix PO 40 mg AC-BRKFST A[facility]IZ Administration Ticagrelor 90 mg 02/19/17 21:00 02/20/17 11:23 Brilinta PO 90 mg BID [facility] Administration Intake and Output 02/19/17 02/20/17 02/20/17 22:59 06:59 14:59 Other: Voiding Method Toilet Toilet Toilet # Voids 3 Weight 119 kg 02/19/17 12:56 02/19/17 12:56 EKG Interpretations (text) Normal sinus rhythm Assessment and Plan Plan: Assessment and plan #1 Atypical right-sided chest pain #2 CAD, recent stent placement to RCA #3 smoker, quit 3 weeks ago #4 hypertension #5 hyperlipidemia From cardiology's perspective, patient may be discharged home. He has a stress test scheduled for 02/23/17 in the office. He will keep this appointment. EN[employer] E[employer]OMIST note has been reviewed, I agree with a documented findings and plan of care. Patient was seen and examined.
--- NOTE | 2017-02-21 13:15 | HP ---
DATE OF SERVICE: 02/20/2017 HISTORY AND PHYSICAL AND DISCHARGE SUMMARY CHIEF COMPLAINT: Chest pain. HISTORY OF PRESENT ILLNESS: This 51-year-old gentleman with past medical history of multiple medical problems including diabetes mellitus, GERD, sleep apnea, history of CAD and stent, being followed by Dr. Corrales in the outpatient setting was complaining of right side chest pain which was radiating to the back also. There is no history of fever, rigors. No history of headache, loss of consciousness or seizures. The patient also had no cardiac symptoms during the previous stent placement. PAST MEDICAL HISTORY: GERD, history of diabetes mellitus type 2, history of CAD and stent. Medications prior to admission include home medications: 1. Metformin 100 mg p.o. b.i.d. 2. Norvasc 10 mg p.o. daily. 4. Protonix 40 mg daily. 5. Lopressor 25 mg p.o. b.i.d. 6. Cozaar 50 mg p.o. daily. 7. Jardiance 10 mg p.o. daily. 8. EpiPen 0.3 mg p.r.n. 9. Celexa 40 mg p.o. daily. 10. Lipitor 80 mg q.h.s. 11. Aspirin. 12. Tylenol 1000 mg q.6 p.r.n. ALLERGIES: OXYCODONE, HONEY BEE, CODEINE. FAMILY HISTORY: History of CAD, diabetes mellitus, prostate disorder in the family. SOCIAL HISTORY: Previous history of smoking. No history of alcohol. REVIEW OF SYSTEMS: ENT: No diminished hearing or vision. CARDIOVASCULAR: As mentioned earlier. RESPIRATORY: As mentioned earlier. GI: No nausea. : No dysuria. NERVOUS SYSTEM: No numbness or weakness. ALLERGY/IMMUNOLOGY: No asthma or hayfever. MUSCULOSKELETAL: As mentioned earlier. HEMATOLOGY/ONCOLOGY: No history of anemia. ENDOCRINE: History of diabetes. No hypothyroidism. CONSTITUTIONAL: As mentioned earlier. DERMATOLOGY: Negative. RHEUMATOLOGY: Negative. PSYCHIATRY: As mentioned earlier. PHYSICAL EXAMINATION: The patient is alert and oriented x3. Pulse is 60, blood pressure 130/77, respirations 18, temperature 97.9, pulse ox 98% on room air. HEENT: Conjunctivae normal. NECK: No jugular venous distention. CARDIOVASCULAR: S1, S2. RESPIRATORY: Breath sounds diminished at the bases. No rhonchi, no crackles. ABDOMEN: Soft, nontender, no mass palpable. LEGS: No edema, no swelling. NERVOUS SYSTEM: Higher function as mentioned. Moves all four limbs. No focal motor sensory deficits. LYMPHATICS: No lymphadenopathy in the neck, axillae or groin. SKIN: No rash, ulcer or bleeding. Labs at this time show CBC within normal limits. Glucose 123. ASSESSMENT: 1. Chest pain, possibly musculoskeletal, myocardial infarction ruled out. 2. History of coronary artery disease, stent. 3. Diabetes mellitus type 2. 4. Hypertension. 5. History of sleep apnea. 6. History of depression. RECOMMENDATIONS AND DISCUSSION: In this 51-year-old gentleman who presented with multiple complex medical issues, we well monitor the patient closely. Continue the current medications. Continue symptomatic treatment. Will monitor the patient closely. Otherwise will also recommend close follow up in outpatient setting with Cardiology and primary physician. Cardiology cleared the patient for discharge. See orders for details. Prognosis guarded. Further recommendations to follow. MTDD
== END 2017-02-20 15:32 | disposition home or self-care (01) ==
LOC: EC 12:31 → 3OBS 14:53
PROVIDERS: ADMIT Internal Medicine; ATTEND Internal Medicine
DX: R07.89 Other chest pain (principal); I21.3 ST elevation (STEMI) myocardial infarction of unspecified site; I25.119 Atherosclerotic heart disease of native coronary artery with unspecified angina pectoris; Z95.5 Presence of coronary angioplasty implant and graft; E11.9 Type 2 diabetes mellitus without complications; I10 Essential (primary) hypertension; R05 Cough; K21.9 Gastro-esophageal reflux disease without esophagitis; E78.5 Hyperlipidemia, unspecified; G47.30 Sleep apnea, unspecified; Z99.89 Dependence on other enabling machines and devices; Z79.01 Long term (current) use of anticoagulants; F17.200 Nicotine dependence, unspecified, uncomplicated; F32.9 Major depressive disorder, single episode, unspecified; Z79.84 Long term (current) use of oral hypoglycemic drugs; Z79.82 Long term (current) use of aspirin; Z79.899 Other long term (current) drug therapy; Z88.5 Allergy status to narcotic agent; Z91.030 Bee allergy status; Z82.49 Family history of ischemic heart disease and other diseases of the circulatory system
CPT/HCPCS: 99285 ×2; 36415; 93005; 85379; 80053; 82550 ×2; 82553 ×2; 83735; 84484 ×2; 85025; 85610; 85730; 71020; G0378 ×2

== ENCOUNTER → 2017-03-23 | Outpatient (CLI) | payer BC ==
[2017-03-23 17:36] LABS: CH 30.2; CHCM 33.2; HCT 47.6 % (39.0-53.0); HDW 2.71; HGB 15.2 gm/dL (13.0-17.5); MCH 29.3 pg (25.0-35.0); MCV 91.4 fL (80.0-100.0); Mean Platelet Volume 7.7; RDW 15.4 % (11.5-15.5)
[2017-03-23 17:44] LABS: Blood Urea Nitrogen 16 mg/dL (9-20); Non-African American GFR(MDRD) >60 (>60 ml/min/1.73 sqM)
--- NOTE | 2017-03-23 17:46 | XR ---
EXAMINATION TYPE: XR chest 2V DATE OF EXAM: 03/23/2017 COMPARISON: 02/19/2017 HISTORY: Short of breath TECHNIQUE: Frontal and lateral views of the chest are obtained. FINDINGS: There is no heart failure nor confluent pneumonic infiltrate. Heart size is normal. Bony t horax is intact. IMPRESSION: No active cardiopulmonary disease. No change.
--- NOTE | 2017-03-23 18:36 | CT ---
EXAMINATION TYPE: CT angio chest DATE OF EXAM: 03/23/2017 6:24 PM COMPARISON: NONE HISTORY: Shortness of breath post stent placement in January 2017. CT DLP: 709.9 mGycm Automated exposure control for dose reduction was used. CONTRAST: CTA scan of the thorax is performed with IV Contrast, patient injected with 100 mL of Omnipaque 300, pulmonary embolism protocol. There are 3-D post processed images.. FINDINGS: The lungs are clear of consolidation. There is no evidence of a pulmonary mass. There is no pleural e ffusion. Heart is slightly enlarged. There is no mediastinal adenopathy. Thoracic aorta appears normal. There is no sign of aneurysm or dissection. I see no filling defects in the pulmonary arteries. There is no pericardial effusion. There are no hilar masses. There are small calcified subcarinal granulomata. B asim thorax is intact. IMPRESSION: NO EVIDENCE OF PULMONARY EMBOLISM. MILD HEALED GRANULOMATOUS DISEASE. MILD CARDIOMEGALY.
== END | disposition home or self-care (01) ==
LOC: RADCTMAIN 17:09
PROVIDERS: ATTEND Internal Medicine Cardiovascular Disease
DX: I51.7 Cardiomegaly (principal); R06.02 Shortness of breath
CPT/HCPCS: 83880; 82565; 84520; 85027; 71020; 71275; 36415; Q9967

== ENCOUNTER 2019-02-27 16:00 | Emergency (ER) | payer BC ==
[2019-02-27 16:43] VITALS: RESP 18; TEMP 98.6
[2019-02-27] MEDS ORDERED: KETOROLAC 30 MG/ML 1 ML VIAL IVP STA (17:07)
--- NOTE | 2019-02-27 17:15 | ED ---
ENT HPI - General Chief complaint: ENT Stated complaint: Facial swelling/lump Time Seen by Provider: 02/27/19 16:52 Source: patient, RN notes reviewed Mode of arrival: ambulatory Limitations: no limitations - History of Present Illness Initial comments: This is a 53-year-old male with a history of heart disease hypertension diabetes who states he had the onset 2 days ago of some pain to the left facial area just in front of his ear he states it feeling last hour to started developing sharp left ear pain. He states the swelling is getting worse and now going down into below his left jawline. He was seen at [facility] and sent here for further ev aluation. He denies any overt fevers chills nausea vomiting sweats per the patient the examination at [facility] the patient's doctor was concerned about possible salivary stone but there was no evidence of that. He denies any dental pain recent trauma no other modifying factors at this time. The patient does state that the pain is 9/10 severity MD complaint: ear pain, other - Related Data Home Medications Medication Instructions Recorded Confirmed Pantoprazole Sodium [Protonix] 40 mg PO DAILY 02/14/14 02/27/19 amLODIPine BESYLATE [Norvasc] 10 mg PO DAILY 02/14/14 02/27/19 Citalopram Hydrobromide 40 mg PO DAILY 09/11/16 02/27/19 [Citalopram HBr] Clopidogrel [Plavix] 75 mg PO DAILY 02/27/19 02/27/19 EPINEPHrine [Epipen 2-Arnold] 0.3 mg IM ONCE PRN 02/27/19 02/27/19 Empagliflozin [Jardiance] 25 mg PO DAILY 02/27/19 02/27/19 Lisinopril [Prinivil] 10 mg PO DAILY 02/27/19 02/27/19 Montelukast [Singulair] 10 mg PO DAILY PRN 02/27/19 02/27/19 metFORMIN HCL [metFORMIN HCL ER 1,000 mg PO BID 02/27/19 02/27/19 Osmotic] sitaGLIPtin [Januvia] 100 mg PO DAILY 02/27/19 02/27/19 Previous Rx's Medication Instructions Recorded Aspirin 81 mg PO DAILY 01/27/17 Metoprolol Tartrate [Lopressor] 25 mg PO BID #60 tab 01/27/17 Amoxicillin/Potassium Clav 1 tab PO Q12HR #20 tab 02/27/19 [Augmentin 875-125 Tablet] Ibuprofen 800 mg PO Q6HR PRN #20 tablet 02/27/19 Allergies Allergy/AdvReac Type Severity Reaction Status Date / Time oxycodone HCl [From Percocet] Allergy Anaphylaxis Verified 02/27/19 17:27 venom-honey bee Allergy Swelling Verified 02/27/19 17:27 [bee venom (honey bee)] codeine AdvReac Itching Verified 02/27/19 17:27 Review of Systems ROS Statement: Those systems with pertinent positive or pertinent negative responses have been documented in the HPI. ROS Other: All systems not noted in ROS Statement are negative. Past Medical History Past Medical History: Chest Pain / Angina, Diabetes Mellitus, GERD/Reflux, Hypertension, Sleep Apnea/CPAP/BIPAP Additional Past Medical History / Comment(s): kidney stone. History of Any Multi-Drug Resistant Organisms: None Reported Past Surgical History: Heart Catheterization With Stent, Orthopedic Surgery Additional Past Surgical History / Comment(s): FASCIOTOMY BILAT HANDS, LT FOOT SURGERY, MUSCLE BIOPSY RT LEG, right shoulder arthroscopy Past Anesthesia/Blood Transfusion Reactions: No Reported Reaction Date of Last Stent Placement:: jan 2017 Past Psychological History: Depression Smoking Status: Former smoker Past Alcohol Use History: None Reported Past Drug Use History: None Reported - Past Family History Father Family Medical History: Coronary Artery Disease (CAD), Diabetes Mellitus, Prostate Disorder Additional Family Medical History / Comment(s): st. caths at home Sister(s) Family Medical History: Diabetes Mellitus Mother Family Medical History: Cancer, COPD, Fibromyalgia Additional Family Medical History / Comment(s): Bladder CA General Exam - General Exam Comments Initial Comments: This is a well-developed well-nourished awake alert oriented 3 male Limitations: no limitations General appearance: alert, anxious Head exam: Present: atraumatic, normocephalic, normal inspection Eye exam: Present: normal appearance, PERRL, EOMI. Absent: scleral icterus, conjunctival injection, periorbital swelling ENT exam: Present: other (Examination of the face reveals some preauricular tenderness over and left submandibular tender lymphadenopathy. The left leg membrane reveals some erythema with fluid noted behind the eardrum. No uncertain L inflammatory changes no tenderness on manipulation of the external ear. Dentition is intact no tenderness no tenderness over the salivary glands no evidence of any salivary duct stones. No tenderness to the gingiva and manipulation.) Neck exam: Present: full ROM, other (No stridor JVD or bruits) Respiratory exam: Present: normal lung sounds bilaterally. Absent: respiratory distress, wheezes, rales, rhonchi, stridor Cardiovascular Exam: Present: regular rate, normal rhythm, normal heart sounds. Absent: systolic murmur, diastolic murmur, rubs, gallop, clicks GI/Abdominal exam: Absent: distended, tenderness, guarding, rebound, rigid Extremities exam: Present: normal inspection, full ROM, normal capillary refill. Absent: tenderness, pedal edema, joint swelling, calf tenderness Back exam: Present: normal inspection Neurological exam: Present: alert, oriented X3, CN II-XII intact Psychiatric exam: Present: normal affect, normal mood Skin exam: Present: warm, dry, intact, normal color. Absent: rash Course Vital Signs 02/27/19 02/27/19 16:40 19:22 Temperature 98.6 F Pulse Rate 76 88 Respiratory 18 18 Rate Blood Pressure 135/85 133/88 O2 Sat by Pulse 99 96 Oximetry Medical Decision Making - Medical Decision Making Patient is feeling improved after the medication was rendered. The presentation is consistent with lymphadenitis likely secondary to otitis media. Patient be placed on appropriate medication. He did have a Keflex prescription he did not get filled and I will instead put him on Augmentin. Be discharged she will get a note for work for tonight and tomorrow. - Lab Data Result diagrams: 02/27/19 17:00 02/27/19 17:00 Lab Results 02/27/19 02/27/19 02/27/19 Range/Units 17:00 17:00 17:00 WBC 7.2 (3.8-10.6) k/uL RBC 5.55 (4.30-5.90) m/uL Hgb 16.1 (13.0-17.5) gm/dL Hct 48.6 (39.0-53.0) % MCV 87.6 (80.0-100.0) fL MCH 29.0 (25.0-35.0) pg MCHC 33.1 (31.0-37.0) g/dL RDW 16.1 H (11.5-15.5) % Plt Count 207 (150-450) k/uL Neutrophils % 60 % Lymphocytes % 26 % Monocytes % 9 % Eosinophils % 1 % Basophils % 1 % Neutrophils # 4.3 (1.3-7.7) k/uL Lymphocytes # 1.9 (1.0-4.8) k/uL Monocytes # 0.7 (0-1.0) k/uL Eosinophils # 0.1 (0-0.7) k/uL Basophils # 0.0 (0-0.2) k/uL Anisocytosis Slight Sodium 141 (137-145) mmol/L Potassium 4.7 (3.5-5.1) mmol/L Chloride 103 (98-107) mmol/L Carbon Dioxide 26 (22-30) mmol/L Anion Gap 12 mmol/L BUN 17 (9-20) mg/dL Creatinine 0.78 (0.66-1.25) mg/dL Est GFR (CKD-EPI)AfAm >90 (>60 ml/min/1.73 sqM) Est GFR (CKD-EPI)NonAf >90 (>60 ml/min/1.73 sqM) Glucose 110 H (74-99) mg/dL Calcium 9.7 (8.4-10.2) mg/dL Magnesium 2.1 (1.6-2.3) mg/dL Total Bilirubin 0.9 (0.2-1.3) mg/dL AST 27 (17-59) U/L ALT 32 (21-72) U/L Alkaline Phosphatase 89 (38-126) U/L Total Protein 7.7 (6.3-8.2) g/dL Albumin 4.7 (3.5-5.0) g/dL Heterophile Antibody Negative (Negative) - Radiology Data Radiology results: report reviewed, image reviewed (I did review the imaging and report evidence of lymphadenopathy and inflammatory changes no evidence of any abscess formation.) Disposition Clinical Impression: Otitis media of left ear, Acute lymphadenitis, Submandibular lymphadenopathy, Preauricular lymphadenopathy Disposition: HOME SELF-CARE Condition: Good Instructions (If sedation given, give patient instructions): Lymphadenopathy (ED), Ear Infection (ED), Earache (ED), Adenitis (ED) Prescriptions: Amoxicillin/Potassium Clav [Augmentin 875-125 Tablet] 1 tab PO Q12HR #20 tab Ibuprofen 800 mg PO Q6HR PRN #20 tablet PRN Reason: Pain Is patient prescribed a controlled substance at d/c from ED?: Yes When asked, does pt state using other controlled substances?: No If prescribed controlled substance>3 days was MAPS reviewed?: Prescribed <3 Days If opioid is for acute pain is fill amount 7 days or less?: Yes If Rx opioid, was Start Talking consent form obtained?: Yes Referrals: Bharti Amin DO [Primary Care Provider] - 1-2 days
[2019-02-27 17:18] LABS: Anisocytosis Slight; Basophils % (A) 1 %; Eosinophils # (A) 0.1 k/uL (0-0.7); Eosinophils % (A) 1 %; HCT 48.6 % (39.0-53.0); HGB 16.1 gm/dL (13.0-17.5); Lymphocytes # (A) 1.9 k/uL (1.0-4.8); Lymphocytes % (A) 26 %; MCHC 33.1 g/dL (31.0-37.0); MCV 87.6 fL (80.0-100.0); Mean Platelet Volume 7.3; Monocytes # (A) 0.7 k/uL (0-1.0); Monocytes % (A) 9 %; Neutrophils # (A) 4.3 k/uL (1.3-7.7); Neutrophils % (A) 60 %; Platelet Count 207 k/uL (150-450); RBC 5.55 m/uL (4.30-5.90); RDW 16.1 % (11.5-15.5); WBC 7.2 k/uL (3.8-10.6)
[2019-02-27 17:28] LABS: ALT 32 U/L (21-72); AST 27 U/L (17-59); African American GFR (CKD) >90 (>60 ml/min/1.73 sqM); Albumin 4.7 g/dL (3.5-5.0); Alkaline Phosphatase 89 U/L (38-126); Anion Gap 12 mmol/L; Blood Urea Nitrogen 17 mg/dL (9-20); Calcium 9.7 mg/dL (8.4-10.2); Carbon Dioxide 26 mmol/L (22-30); Chloride 103 mmol/L (98-107); Glucose 110 mg/dL (74-99); Magnesium 2.1 mg/dL (1.6-2.3); Potassium 4.7 mmol/L (3.5-5.1); Sodium 141 mmol/L (137-145); Total Bilirubin 0.9 mg/dL (0.2-1.3); Total Protein 7.7 g/dL (6.3-8.2)
[2019-02-27] MEDS ORDERED: fentaNYL (PF) 50 MCG/ML 2 ML AMP IV STA (17:59)
--- NOTE | 2019-02-27 18:53 | CT ---
EXAMINATION TYPE: CT soft tissue neck w con DATE OF EXAM: 02/27/2019 6:29 PM COMPARISON: HISTORY: Left sided neck swelling, submandibular, and below chin. CT DLP: 547 mGycm Automated exposure control for dose reduction was used. CONTRAST: CT scan of the neck is performed following with IV Contrast, patient injected with 100 mL of Isovue 3 00. Axial images are obtained, coronal and sagittal reformatted images are reviewed. FINDINGS: Epiglottis appears normal. Subglottic trachea appears normal. Thyroid gland is symmetric. There is no rmal branching pattern of the great vessels on the aortic arch. There is mild fat stranding around the left side submandibular salivary gland. There is mild subcutan eous edema in the left submandibular region. Left parotid gland is slightly larger than the right. I see no discrete salivary gland mass. The tonsils and adenoids appear normal. There is no evidence of retropharyngeal abscess. There is 12 mm mucus retention cyst right maxillary sinus. There are multiple small anterior and posterior triang le cervical lymph nodes that measure up to 12 mm. IMPRESSION: Mild left side soft tissue swelling and subcutaneous edema consistent with inflammatory process. Nonspecific mild cervical lymphadenopathy. No evidence of an abscess. Slight asymmetric enla rgement of the left submandibular salivary gland and left parotid gland consistent with mild inflamma tory disease.
[2019-02-27 19:23] VITALS: BP 133/88; PULSE 88
[2019-02-27] MEDS ORDERED: cefTRIAXone IN SWFI 1,000 MG/10 ML SYRINGE IVP STA (19:26)
== END 2019-02-27 20:16 | disposition home or self-care (01) ==
LOC: EC 16:00
DX: H66.92 Otitis media, unspecified, left ear (principal); L04.9 Acute lymphadenitis, unspecified; E11.9 Type 2 diabetes mellitus without complications; I10 Essential (primary) hypertension; K21.9 Gastro-esophageal reflux disease without esophagitis; F32.9 Major depressive disorder, single episode, unspecified; G47.30 Sleep apnea, unspecified; Z79.02 Long term (current) use of antithrombotics/antiplatelets; Z79.84 Long term (current) use of oral hypoglycemic drugs; Z79.899 Other long term (current) drug therapy; Z88.5 Allergy status to narcotic agent; Z91.030 Bee allergy status; Z87.891 Personal history of nicotine dependence; Z95.5 Presence of coronary angioplasty implant and graft; Z99.89 Dependence on other enabling machines and devices
CPT/HCPCS: 36415; 86735 ×2; 80053; 83735; 85025; 86308; 87040; 70491; 99284; 96374; 96375 ×2; J0696; J3010; J1885; Q9967

== ENCOUNTER 2020-05-11 22:37 | Emergency (ER) | payer BC ==
--- NOTE | 2020-05-12 00:12 | ED ---
General Adult HPI - General Chief complaint: Upper Respiratory Infection Stated complaint: Fever Time Seen by Provider: 05/11/20 22:40 Source: patient Mode of arrival: ambulatory Limitations: no limitations - History of Present Illness Initial comments: 54-year-old male presents emergency department requesting covid swab. The patient does work at the [employer] and states that when he went into work tonight he had multiple episodes of loose watery stool accompanied by myalgias. He went to the nurse retake his temperature was noted to be elevated. They sent the patient home and requested that he get covid testing. Patient denies any sick contacts. Denies any chest pain or shortness of breath. No abdominal pain. No nausea or vomiting. No other alleviating, precipitating or modifying factors - Related Data Home Medications Medication Instructions Recorded Confirmed Pantoprazole Sodium [Protonix] 40 mg PO DAILY 02/14/14 02/27/19 amLODIPine BESYLATE [Norvasc] 10 mg PO DAILY 02/14/14 02/27/19 Citalopram Hydrobromide 40 mg PO DAILY 09/11/16 02/27/19 [Citalopram HBr] Clopidogrel [Plavix] 75 mg PO DAILY 02/27/19 02/27/19 EPINEPHrine [Epipen 2-Arnold] 0.3 mg IM ONCE PRN 02/27/19 02/27/19 Empagliflozin [Jardiance] 25 mg PO DAILY 02/27/19 02/27/19 Lisinopril [Prinivil] 10 mg PO DAILY 02/27/19 02/27/19 Montelukast [Singulair] 10 mg PO DAILY PRN 02/27/19 02/27/19 metFORMIN HCL [metFORMIN HCL ER 1,000 mg PO BID 02/27/19 02/27/19 Osmotic] sitaGLIPtin [Januvia] 100 mg PO DAILY 02/27/19 02/27/19 Previous Rx's Medication Instructions Recorded Aspirin 81 mg PO DAILY 01/27/17 Metoprolol Tartrate [Lopressor] 25 mg PO BID #60 tab 01/27/17 Amoxicillin/Potassium Clav 1 tab PO Q12HR #20 tab 02/27/19 [Augmentin 875-125 Tablet] Ibuprofen 800 mg PO Q6HR PRN #20 tablet 02/27/19 Allergies Allergy/AdvReac Type Severity Reaction Status Date / Time oxycodone HCl [From Percocet] Allergy Anaphylaxis Verified 05/11/20 22:43 venom-honey bee Allergy Swelling Verified 05/11/20 22:43 [bee venom (honey bee)] codeine AdvReac Itching Verified 05/11/20 22:43 Review of Systems ROS Statement: Those systems with pertinent positive or pertinent negative responses have been documented in the HPI. ROS Other: All systems not noted in ROS Statement are negative. Past Medical History Past Medical History: Chest Pain / Angina, Diabetes Mellitus, GERD/Reflux, Hypertension, Sleep Apnea/CPAP/BIPAP Additional Past Medical History / Comment(s): kidney stone. History of Any Multi-Drug Resistant Organisms: None Reported Past Surgical History: Heart Catheterization With Stent, Orthopedic Surgery Additional Past Surgical History / Comment(s): FASCIOTOMY BILAT HANDS, LT FOOT SURGERY, MUSCLE BIOPSY RT LEG, right shoulder arthroscopy Past Anesthesia/Blood Transfusion Reactions: No Reported Reaction Date of Last Stent Placement:: jan 2017 Past Psychological History: Depression Smoking Status: Never smoker Past Alcohol Use History: None Reported Past Drug Use History: None Reported - Past Family History Father Family Medical History: Coronary Artery Disease (CAD), Diabetes Mellitus, Prostate Disorder Additional Family Medical History / Comment(s): [facility] home Sister(s) Family Medical History: Diabetes Mellitus Mother Family Medical History: Cancer, COPD, Fibromyalgia Additional Family Medical History / Comment(s): Bladder CA General Exam Limitations: no limitations General appearance: alert, in no apparent distress Head exam: Present: atraumatic, normocephalic, normal inspection Eye exam: Present: normal appearance, PERRL, EOMI. Absent: scleral icterus, c onjunctival injection, periorbital swelling ENT exam: Present: normal exam, mucous membranes moist Neck exam: Present: normal inspection. Absent: tenderness, meningismus, lymphadenopathy Respiratory exam: Present: normal lung sounds bilaterally. Absent: respiratory distress, wheezes, rales, rhonchi, stridor Cardiovascular Exam: Present: regular rate, normal rhythm, normal heart sounds. Absent: systolic murmur, diastolic murmur, rubs, gallop, clicks GI/Abdominal exam: Present: soft, normal bowel sounds. Absent: distended, tenderness, guarding, rebound, rigid Extremities exam: Present: normal inspection, full ROM, normal capillary refill. Absent: tenderness, pedal edema, joint swelling, calf tenderness Back exam: Present: normal inspection Neurological exam: Present: alert, oriented X3, CN II-XII intact Psychiatric exam: Present: normal affect, normal mood Skin exam: Present: warm, dry, intact, normal color. Absent: rash Course Vital Signs 05/11/20 05/12/20 22:39 00:26 Temperature 100.0 F H 99.9 F H Pulse Rate 86 84 Respiratory 20 18 Rate Blood Pressure 178/100 178/92 O2 Sat by Pulse 96 97 Oximetry Medical Decision Making - Medical Decision Making Upon arrival patient is placed into the [facility] area. The patient is swabbed for rapid Covid testing. Influenza is also performed. Results are reviewed and are negative. This information is discussed with the patient. Did offer further testing for which the patient did refuse. Patient is instructed to quarantine at home until symptoms improve. He is given a work note. Return to the ED for any new or worsening symptoms. She was discharged home in stable condition - Lab Data Lab Results 05/11/20 05/11/20 05/11/20 Range/Units 22:49 22:49 22:49 Coronavirus (PCR) Not Detected Not Detected (Not Detectd) Influenza Type A RNA Not Detected (Not Detectd) Influenza Type B (PCR) Not Detected (Not Detectd) Disposition Clinical Impression: Fever, Myalgia Disposition: HOME SELF-CARE Condition: Stable Instructions (If sedation given, give patient instructions): Fever in Adults (ED) Additional Instructions: Quarantine until your symptoms improve and your fever resolves. Return to the ED for any new or worsening symptoms. Is patient prescribed a controlled substance at d/c from ED?: No Referrals: Bharti Amin DO [Primary Care Provider] - 1-2 days Time of Disposition: 00:12
[2020-05-12 00:27] VITALS: BP 178/92; PULSE 84; RESP 18; TEMP 99.9
== END 2020-05-12 00:26 | disposition home or self-care (01) ==
LOC: EC 22:37
DX: R50.9 Fever, unspecified (principal); M79.10 Myalgia, unspecified site; E11.9 Type 2 diabetes mellitus without complications; K21.9 Gastro-esophageal reflux disease without esophagitis; I10 Essential (primary) hypertension; I20.9 Angina pectoris, unspecified; G47.33 Obstructive sleep apnea (adult) (pediatric); Z79.02 Long term (current) use of antithrombotics/antiplatelets; Z79.84 Long term (current) use of oral hypoglycemic drugs; Z79.899 Other long term (current) drug therapy; Z88.5 Allergy status to narcotic agent; Z91.030 Bee allergy status; Z95.5 Presence of coronary angioplasty implant and graft; Z99.89 Dependence on other enabling machines and devices; Z20.828 Contact with and (suspected) exposure to other viral communicable diseases; Z87.442 Personal history of urinary calculi
CPT/HCPCS: 99283; 87502; 87635; U0003

== ENCOUNTER 2021-03-07 00:52 | Emergency (ER) | payer OTHER, BC ==
--- NOTE | 2021-03-07 02:10 | ED ---
Upper Extremity HPI - General Chief Complaint: Extremity Injury, Upper Stated Complaint: [facility] fall, LT shoulder injury Time Seen by Provider: 03/07/21 01:12 Source: patient, RN notes reviewed Mode of arrival: ambulatory Limitations: no limitations - History of Present Illness Initial Comments: This a 55-year-old male presents emergency Department chief complaint left shoulder injury. Patient states he works [employer], he states he tripped over a blanket on the ground falling to his left shoulder he denies any head injury no loss conscious. Patient has pain with range of motion especially over her shoulder height of his left shoulder no paresthesias no other complaints at this time. - Related Data Home Medications Medication Instructions Recorded Confirmed Pantoprazole Sodium [Protonix] 40 mg PO DAILY 02/14/14 02/27/19 amLODIPine BESYLATE [Norvasc] 10 mg PO DAILY 02/14/14 02/27/19 Citalopram Hydrobromide 40 mg PO DAILY 09/11/16 02/27/19 [Citalopram HBr] Clopidogrel [Plavix] 75 mg PO DAILY 02/27/19 02/27/19 EPINEPHrine [Epipen 2-Arnold] 0.3 mg IM ONCE PRN 02/27/19 02/27/19 Empagliflozin [Jardiance] 25 mg PO DAILY 02/27/19 02/27/19 Lisinopril [Prinivil] 10 mg PO DAILY 02/27/19 02/27/19 Montelukast [Singulair] 10 mg PO DAILY PRN 02/27/19 02/27/19 metFORMIN HCL [metFORMIN HCL ER 1,000 mg PO BID 02/27/19 02/27/19 Osmotic] sitaGLIPtin [Januvia] 100 mg PO DAILY 02/27/19 02/27/19 Previous Rx's Medication Instructions Recorded Aspirin 81 mg PO DAILY 01/27/17 Metoprolol Tartrate [Lopressor] 25 mg PO BID #60 tab 01/27/17 Amoxicillin/Potassium Clav 1 tab PO Q12HR #20 tab 02/27/19 [Augmentin 875-125 Tablet] Ibuprofen 800 mg PO Q6HR PRN #20 tablet 02/27/19 Ibuprofen [Motrin] 800 mg PO Q6HR #30 tab 03/07/21 Allergies Allergy/AdvReac Type Severity Reaction Status Date / Time oxycodone HCl [From Percocet] Allergy Anaphylaxis Verified 05/11/20 22:43 venom-honey bee Allergy Swelling Verified 05/11/20 22:43 [bee venom (honey bee)] codeine AdvReac Itching Verified 05/11/20 22:43 Review of Systems ROS Statement: Those systems with pertinent positive or pertinent negative responses have been documented in the HPI. ROS Other: All systems not noted in ROS Statement are negative. Past Medical History Past Medical History: Chest Pain / Angina, Diabetes Mellitus, GERD/Reflux, Hypertension, Sleep Apnea/CPAP/BIPAP Additional Past Medical History / Comment(s): kidney stone. History of Any Multi-Drug Resistant Organisms: None Reported Past Surgical History: Heart Catheterization With Stent, Orthopedic Surgery Additional Past Surgical History / Comment(s): FASCIOTOMY BILAT HANDS, LT FOOT SURGERY, MUSCLE BIOPSY RT LEG, right shoulder arthroscopy Past Anesthesia/Blood Transfusion Reactions: No Reported Reaction Date of Last Stent Placement:: jan 2017 Past Psychological History: Depression Smoking Status: Never smoker Past Alcohol Use History: None Reported Past Drug Use History: None Reported - Past Family History Father Family Medical History: Coronary Artery Disease (CAD), Diabetes Mellitus, Prostate Disorder Additional Family Medical History / Comment(s): [facility] home Sister(s) Family Medical History: Diabetes Mellitus Mother Family Medical History: Cancer, COPD, Fibromyalgia Additional Family Medical History / Comment(s): Bladder [place] General Exam Limitations: no limitations General appearance: alert, in no apparent distress Head exam: Present: atraumatic, normocephalic, normal inspection Neck exam: Present: normal inspection, full ROM. Absent: tenderness, meningismus, lymphadenopathy Respiratory exam: Present: normal lung sounds bilaterally. Absent: respiratory distress, wheezes, rales, rhonchi, stridor Cardiovascular Exam: Present: regular rate, normal rhythm, normal heart sounds. Absent: systolic murmur, diastolic murmur, rubs, gallop, clicks Extremities exam: Present: other (Left shoulder there is tenderness diffusely with no iris deformity no tenderness over the clavicle, neurovascular intact patient has near full range of motion will reports most discomfort greater than 90.) Neurological exam: Present: alert, oriented X3, reflexes normal. Absent: motor sensory deficit Course Vital Signs 03/07/21 02:15 Temperature 98.6 F Pulse Rate 72 Respiratory 16 Rate Blood Pressure 137/84 O2 Sat by Pulse 96 Oximetry Medical Decision Making - Medical Decision Making X-rays negative for acute fracture. Patient has a left shoulder strain concern for possible ligamentous injury. Patient will follow-up with [facility] possible orthopedics if needed return parameters were discussed. Disposition Clinical Impression: Sprain of left shoulder Disposition: HOME SELF-CARE Condition: Stable Instructions (If sedation given, give patient instructions): Shoulder Pain (ED), Shoulder Sprain (ED) Additional Instructions: Please return to the Emergency Department if symptoms worsen or any other concerns. Prescriptions: Ibuprofen [Motrin] 800 mg PO Q6HR #30 tab Is patient prescribed a controlled substance at d/c from ED?: No Referrals: Bharti Amin DO [Primary Care Provider] - 1-2 days Time of Disposition: 02:20
--- NOTE | 2021-03-07 02:11 | XR ---
EXAMINATION TYPE: XR shoulder complete LT DATE OF EXAM: 03/07/2021 COMPARISON: NONE HISTORY: Fall. Shoulder pain TECHNIQUE: 3 views FINDINGS: The glenohumeral joint is anatomic. I see no fracture nor dislocation. AC joint is intact. IMPRESSION: Negative left shoulder exam. No fracture.
[2021-03-07 02:15] VITALS: BP 137/84; PULSE 72; RESP 16; TEMP 98.6
== END 2021-03-07 02:31 | disposition home or self-care (01) ==
LOC: EC 00:52
DX: S43.402A Unspecified sprain of left shoulder joint, initial encounter (principal); I10 Essential (primary) hypertension; K21.9 Gastro-esophageal reflux disease without esophagitis; E11.9 Type 2 diabetes mellitus without complications; Z88.5 Allergy status to narcotic agent; Z79.899 Other long term (current) drug therapy; Z79.84 Long term (current) use of oral hypoglycemic drugs; Z91.030 Bee allergy status; W01.0XXA Fall on same level from slipping, tripping and stumbling without subsequent striking against object, initial encounter; Y92.149 Unspecified place in prison as the place of occurrence of the external cause
CPT/HCPCS: 99283

== ENCOUNTER → 2021-03-12 | Outpatient (CLI) | payer OTHER ==
--- NOTE | 2021-03-13 03:31 | MR ---
EXAMINATION TYPE: MR shoulder LT wo con DATE OF EXAM: 03/12/2021 COMPARISON: None HISTORY: Older pain. The biceps tendon is intact. There is some fluid around the biceps tendon. There is some increased fl uid at the greater tuberosity of the humerus. Subscapularis tendon is intact. The glenoid amanda appea r intact. There is minor spurring at the AC joint. There is no significant subacromial impingement. T here is some mild increased signal in the anterior aspect of the supraspinatus tendon. There is no fu ll-thickness tear. There is no retraction. There is no evidence of a fracture. The glenohumeral joint is intact. IMPRESSION: There is a mild shoulder joint effusion consistent with some nonspecific synovitis. Partial tear of t he supraspinatus tendon. No retraction.
== END | disposition home or self-care (01) ==
LOC: RADMRIMAIN 17:55
PROVIDERS: ATTEND Emergency Medicine
DX: M25.412 Effusion, left shoulder (principal); M65.812 Other synovitis and tenosynovitis, left shoulder; M75.112 Incomplete rotator cuff tear or rupture of left shoulder, not specified as traumatic

== ENCOUNTER → 2021-05-29 | Outpatient (CLI) | payer OTHER ==
[2021-05-29 09:32] LABS: Basophils # (A) 0.1 k/uL (0-0.2); Basophils % (A) 1 %; Eosinophils % (A) 0 %; HCT 48.4 % (39.0-53.0); HGB 15.8 gm/dL (13.0-17.5); Lymphocytes # (A) 2.1 k/uL (1.0-4.8); Lymphocytes % (A) 23 %; MCH 28.2 pg (25.0-35.0); MCHC 32.6 g/dL (31.0-37.0); MCV 86.5 fL (80.0-100.0); Mean Platelet Volume 7.8; Monocytes # (A) 0.7 k/uL (0-1.0); Monocytes % (A) 8 %; Neutrophils # (A) 5.8 k/uL (1.3-7.7); Neutrophils % (A) 66 %; Platelet Count 229 k/uL (150-450); RBC 5.59 m/uL (4.30-5.90); RDW 14.3 % (11.5-15.5); WBC 8.8 k/uL (3.8-10.6)
[2021-05-29 09:40] LABS: African American GFR (CKD) >90 (>60 ml/min/1.73 sqM); Anion Gap 11 mmol/L; Blood Urea Nitrogen 20 mg/dL (9-20); Calcium 9.9 mg/dL (8.4-10.2); Carbon Dioxide 28 mmol/L (22-30); Chloride 102 mmol/L (98-107); Glucose 117 mg/dL (74-99); Non-African American GFR(CKD) >90 (>60 ml/min/1.73 sqM); Potassium 4.4 mmol/L (3.5-5.1); Sodium 141 mmol/L (137-145)
== END | disposition home or self-care (01) ==
LOC: LABPAT 08:13
PROVIDERS: ATTEND Orthopaedic Surgery
DX: Z01.812 Encounter for preprocedural laboratory examination (principal); M75.42 Impingement syndrome of left shoulder
CPT/HCPCS: 36415; 80048; 85025

== ENCOUNTER → 2021-06-26 | Outpatient (CLI) | payer OTHER ==
[2021-06-26 12:19] LABS: Basophils % (A) 1 %; Eosinophils # (A) 0.1 k/uL (0-0.7); Eosinophils % (A) 1 %; HCT 49.4 % (39.0-53.0); HGB 16.1 gm/dL (13.0-17.5); Lymphocytes % (A) 39 %; MCH 29.3 pg (25.0-35.0); MCHC 32.6 g/dL (31.0-37.0); MCV 89.9 fL (80.0-100.0); Mean Platelet Volume 7.3; Monocytes # (A) 0.4 k/uL (0-1.0); Monocytes % (A) 7 %; Neutrophils # (A) 2.6 k/uL (1.3-7.7); Neutrophils % (A) 50 %; Platelet Count 232 k/uL (150-450); RBC 5.49 m/uL (4.30-5.90); RDW 14.6 % (11.5-15.5); WBC 5.2 k/uL (3.8-10.6)
[2021-06-26 12:44] LABS: Potassium 4.3 mmol/L (3.5-5.1)
== END | disposition home or self-care (01) ==
LOC: LABPAT 10:28
PROVIDERS: ATTEND Orthopaedic Surgery
DX: Z01.812 Encounter for preprocedural laboratory examination (principal); M75.42 Impingement syndrome of left shoulder
CPT/HCPCS: 36415; 80051; 85025

== ENCOUNTER 2021-07-04 06:53 | Day surgery (SDC) | payer OTHER ==
[2021-06-27 11:25] VITALS: BMI 35.2
--- NOTE | 2021-07-03 12:30 | HP ---
HISTORY AND PHYSICAL CHIEF COMPLAINT: Left shoulder pain. HISTORY OF PRESENT ILLNESS: The patient is a 55-year-old right-hand dominant male who presents with progressive left shoulder pain after an injury at work on 03/07/2021. He notes he tripped over a blanket and fell onto his shoulder. He is having pain with overhead use and at night ever since. He notes a catching sensation. He has been taking ibuprofen in addition to trying therapy in addition to a cortisone injection with minimal relief. He notes daily pain that seems to be worsening. PAST MEDICAL HISTORY: Significant depression, gastroesophageal reflux disease and hypertension. PAST SURGICAL HISTORY: Significant for bilateral hand surgery and left ankle surgery. CURRENT MEDICATIONS: Aspirin, Celexa, Jardiance, lisinopril, metformin, metoprolol, Norvasc, Protonix, Singulair, and ibuprofen. ALLERGIES: CODEINE. FAMILY HISTORY: Significant for cancer. SOCIAL HISTORY: Significant for one pack per day tobacco use. REVIEW OF SYSTEMS: Sixteen-point review of systems otherwise reviewed and is noncontributory. PHYSICAL EXAMINATION: On examination, the patient is approximately 6 foot 1, 260 pounds of endomorphic habitus. HEENT exam is nonfocal. Neck is supple. On examination of his left shoulder, he is tender about the anterior subacromial space. He has moderate crepitus. Active range of motion forward elevation 150 degrees, external rotation with arm to side 70 degrees, internal rotation to L3. Motor strength 5/5 for external rotation with arm at side, 5-/5 for abduction. Impingement test, NEER test, and Speed test are positive. His distal neurovascular exam appears intact in the left upper extremity. Previous MRI report left shoulder shows evidence of increased signal involving the anterior aspect of the supraspinatus. There is also diffuse synovitis. IMPRESSION: 1. Left rotator cuff strain with possible partial-thickness rotator cuff tear. 2. Left shoulder synovitis. RECOMMENDATIONS: I talked to the patient at length regarding his condition along with treatment options. At this point, he remains quite symptomatic despite extensive conservative treatment. After a thorough discussion, he opts to proceed with surgery. We will plan to proceed with arthroscopic evaluation with possible rotator cuff debridement versus repair in addition to subacromial decompression. Risks and benefits were discussed at length in layman's terms. We will likely perform as an outpatient procedure. MMODL / IJN: [id number] /
[~2021-07-04 06:53] MED LIST: DEXAMETHASONE SOD PHOSPHATE 4 MG/ML 1 ML VIAL IV ONE; LACTATED RINGERS 1,000 ML IV SCH; ONDANSETRON 4 MG/2 ML VIAL IVP ONE; fentaNYL (PF) 50 MCG/ML 2 ML AMP IV PRN
[2021-07-04 07:17] VITALS: TEMP 97.8
[2021-07-04 07:38] LABS: Glucose,Whole Blood 132 mg/dL (75-99)
[2021-07-04] MEDS ORDERED: MIDAZOLAM 2 MG/2 ML VIAL IVP ONE (08:17)
[2021-07-04] MEDS ORDERED: ROPIVACAINE 5 MG/ML 30 ML VIAL ONE (08:40)
[2021-07-04] MEDS ORDERED: LIDOCAINE 1% INJ 10MG/ML (20 ML MDV) ONE (08:40)
[2021-07-04] MEDS ORDERED: PROPOFOL 10 MG/ML 20 ML VIAL IV ONE (08:40)
[2021-07-04] MEDS ORDERED: PHENYLEPHRINE-0.9% NACL SYG 1,000 MCG/10 ML SYRINGE ONE (08:40)
[2021-07-04] MEDS ORDERED: SUCCINYLCHOLINE CHLORIDE VIAL 200 MG/10 ML VIAL IV ONE (08:40)
[2021-07-04] MEDS ORDERED: fentaNYL (PF) 50 MCG/ML 2 ML AMP ONE (08:40)
--- NOTE | 2021-07-04 10:08 | P.OP ---
Date of Procedure: 07/04/21 Preoperative Diagnosis: Symptomatic left rotator cuff tear Postoperative Diagnosis: Same in addition to synovitis left shoulder Procedure(s) Performed: Left shoulder arthroscopic subacromial decompression/partial synovectomy/rotator cuff repair Implants: Arthrex 5.5 mm lock anchor x one, 4.75 mm swivel lock anchor 1 Anesthesia: milton SUE Surgeon: Hermilo Mercer General Forecaster #1: Ruperto Martinez Estimated Blood Loss (ml): 10 Pathology: none sent Condition: stable Disposition: PACU Indications for Procedure: The patient is a 56-year-old male who presents after an injury at work with persistent/progressive left shoulder pain despite conservative measures. A discussion of the risks and benefits of operative intervention versus continued conservative measures with patient. He opted proceed with surgery. Operative risks to include infection, neurovascular injury, development of blood clots, possible tendon rerupture, possible postoperative stiffness and need for subsequent procedures was discussed. Informed consent was obtained. Operative Findings: As below Description of Procedure: The patient was brought to the operating room, and after induction of general anesthesia was placed in a beachchair position. A preoperative interscalene block was placed for postoperative analgesia. I examined the left shoulder. There was no gross block to passive motion or gross glenohumeral instability. The left upper extremity was prepped and draped in normal fashion. The bony outlines the acromion, distal clavicle, and coracoid process were outlined with a skin marker. The glenohumeral joint was inflated with 50 mL of saline utilizing a spinal needle from posterior approach. A posterior portal was made through a 5 mm skin incision 1 cm medial and inferior to the posterior lateral border time. A blunt trocar was used to easily into the joint. Diagnostic arthroscopy was performed. An anterior portal was made just lateral to the coracoid process entering the joint above the subscapularis tendon. The subscapularis tendon appeared to be intact. Anterior labrum was intact. The inferior recess was inspected. The posterior labrum was intact. The long head of the biceps and its anchor were stable and intact. On inspection the rotator cuff, a full-thickness tear involving the anterior aspect the supraspinatus was noted measuring approximately 1 1/2 cm. The arthroscope was placed into the subacromial space. A lateral portal was made 2 centimeters inferior to the anterior lateral border of the acromion. There was marked bursitis debrided with a motorized shaver. The rotator cuff tear was identified and was easily mobilized back to the greater tuberosity. The greater tuberosity was lightly decorticated down to bleeding bony surface. The soft tissue on the undersurface of the acromion was debrided with a motorized shaver and electrocautery clearly defining the anterior medial and lateral borders as well as the distal clavicle. An anterior inferior acromioplasty was performed with a motorized yessenia starting anterolateral, then extending this posteriorly, then extending this medially. I converted to a flat acromion and this was verified in the posterior and lateral viewing portals. An accessory superior lateral portal was made just off the lateral edge of the acromion for anchor placement. A 4.75 mm swivel lock anchor preloaded with fiber tape was placed just off the articular surface with the appropriate starting awl. Good purchase was obtained. These fiber tapes were then passed the rotator cuff with a scorpion suture passer. A lateral row was created utilizing a 5.5 mm swivel lock anchor laterally. Good purchase was obtained. Final arthroscopic view showed adequate compression at the footprint. The arthroscope was then removed. The portals were closed with simple 3-0 nylon sutures. A sterile dressing was applied in addition to a sling. The patient was then awoken from general anesthesia and transferred to recovery room in good condition. Blood loss was estimated at 10 mL. No complications were incurred. Sponge and needle counts were correct in the case. Ruperto ALLEN assisted and the major components of the case to include arm positioning, anchor placement, and rotator cuff repair.
[2021-07-04] MEDS ORDERED: LACTATED RINGERS 1,000 ML IV ONE ×2 (10:15)
[2021-07-04] MEDS ORDERED: ALBUTEROL NEBULIZED 2.5 MG/3 ML INHALATION ONE (10:27)
--- NOTE | 2021-07-04 10:40 | XR ---
EXAMINATION TYPE: XR chest 1V portable DATE OF EXAM: 07/04/2021 COMPARISON: Chest x-ray 03/23/2017 HISTORY: Postop, abnormal physical exam TECHNIQUE: Single frontal view of the chest is obtained. FINDINGS: There is lucency seen over the left scapula, likely in the left neck. Cardiac mediastinal silhouette is likely stable. The left hemidiaphragm is markedly elevated, stomach appears gas distend ed. No evident pneumothorax or pleural effusion. Patchy bilateral airspace disease is suspected versu s atelectasis along the left hemidiaphragm. IMPRESSION: Gas distended stomach and basilar atelectasis. Findings could be indicative of pneumonia or edema. Question some subcutaneous emphysema, difficult to exclude pneumomediastinum.
[2021-07-04] MEDS ORDERED: FUROSEMIDE 10 MG/ML 4 ML VIAL IV ONE (12:15)
--- NOTE | 2021-07-04 13:22 | P.ANPRN ---
Procedure Note - Anesthesia - Nerve Block Performed Left Interscalene Single Time Out Performed: Yes ([id number]) Date of Procedure: 07/04/21 Procedure Start Time: 08:16 Procedure Stop Time: 08:21 Location of Patient: PreOp Indication: Acute Post-Operative Pain, Requested by Surgeon Specifically requested for management of pain by : Hermilo Mercer Sedation Type: Sedate with meaningful contact maintained Preparation: Sterile Prep Position: Supine Catheter: None Needle Types: Pajunk Needle Gauge: 21 Ultrasound used to visualize needle placement: Yes Ultrasound used to observe medication spread: Yes Injectate: 0.5% Ropivacaine (see comment for volume) (30cc) Blood Aspirated: No Pain Paresthesia on Injection Noted: No Resistance on Injection: Normal Image Stored and Saved: Yes Events: Uneventful and Well Tolerated
[2021-07-04 14:11] VITALS: BP 126/74; PULSE 101; RESP 18
[2021-07-04] MEDS ORDERED: guaiFENesin-DM 600/30MG 1 EACH TAB.ER.12H PO STA (14:37)
== END 2021-07-04 15:35 | disposition home or self-care (01) ==
LOC: OR 06:53
PROVIDERS: ATTEND Orthopaedic Surgery
DX: M75.102 Unspecified rotator cuff tear or rupture of left shoulder, not specified as traumatic (principal); M65.9 Synovitis and tenosynovitis, unspecified; M25.812 Other specified joint disorders, left shoulder; I35.0 Nonrheumatic aortic (valve) stenosis; I10 Essential (primary) hypertension; K21.9 Gastro-esophageal reflux disease without esophagitis; F32.A Depression, unspecified; E11.9 Type 2 diabetes mellitus without complications; Z72.0 Tobacco use; Z98.890 Other specified postprocedural states; Z79.84 Long term (current) use of oral hypoglycemic drugs; Z79.02 Long term (current) use of antithrombotics/antiplatelets; Z79.82 Long term (current) use of aspirin; Z79.810 Long term (current) use of selective estrogen receptor modulators (SERMs); Z79.1 Long term (current) use of non-steroidal anti-inflammatories (NSAID); Z88.5 Allergy status to narcotic agent
CPT/HCPCS: 29826; 29827; 29820; 64415; 76942; 71045; C1713 ×2; C1894; J2250; J0330; J1100; J1940; J0690; J2405; J2001; J3010; J2795; J2370; J2704

== ENCOUNTER 2022-02-24 00:02 | Emergency (ER) | payer BC ==
[2022-02-24 00:38] VITALS: RESP 18; TEMP 98.6
--- NOTE | 2022-02-24 00:51 | ED ---
Arrhythmia/Palpitations HPI - General Chief Complaint: Arrhythmia/Palpitations Stated Complaint: High Heart Rate Time Seen by Provider: 02/24/22 00:48 Source: patient, RN notes reviewed, old records reviewed Mode of arrival: ambulatory - History of Present Illness Initial Comments: This is a 56-year-old male who presents to the ER today. Presents to us today for evaluation of an elevated heart rate. Patient was found have a heart rate and above 200. Both taken by pulse and pulse ox. At the time patient was feeling unwell symptoms are resolved. He does have prior history of stent with no prior history of palpitations or any other issue is elevated heart rate or arrhythmia MD Complaint: rapid heart beat, "heart racing", palpitations -: minutes(s) Arrhythmia History: other (0) Associated Symptoms: denies other symptoms Treatments Prior to Arrival: other (0) - Related Data Home Medications Medication Instructions Recorded Confirmed amLODIPine BESYLATE [Norvasc] 10 mg PO QAM 02/14/14 02/24/22 Citalopram Hydrobromide 40 mg PO HS 09/11/16 02/24/22 [Citalopram HBr] Empagliflozin [Jardiance] 25 mg PO QAM 02/27/19 02/24/22 lisinopriL [Prinivil] 10 mg PO HS 02/27/19 02/24/22 metFORMIN HCL [metFORMIN HCL ER 1,000 mg PO BID 02/27/19 02/24/22 Osmotic] Aspirin 81 mg PO QAM 06/04/21 02/24/22 Empagliflozin [Jardiance] 25 mg PO DAILY 02/24/22 02/24/22 RABEprazole SODIUM 20 mg PO DAILY 02/24/22 02/24/22 busPIRone HCL [Buspar] 7.5 mg PO BID 02/24/22 02/24/22 Previous Rx's Medication Instructions Recorded Metoprolol Tartrate [Lopressor] 25 mg PO BID #60 tab 01/27/17 Allergies Allergy/AdvReac Type Severity Reaction Status Date / Time oxycodone HCl [From Percocet] Allergy Anaphylaxis Verified 02/24/22 00:38 venom-honey bee Allergy Swelling Verified 02/24/22 00:38 [bee venom (honey bee)] codeine AdvReac Itching Verified 02/24/22 00:38 Review of Systems ROS Statement: Those systems with pertinent positive or pertinent negative responses have been documented in the HPI. ROS Other: All systems not noted in ROS Statement are negative. Past Medical History Past Medical History: Chest Pain / Angina, Diabetes Mellitus, GERD/Reflux, Hypertension, Sleep Apnea/CPAP/BIPAP Additional Past Medical History / Comment(s): kidney stone. History of Any Multi-Drug Resistant Organisms: None Reported Past Surgical History: Heart Catheterization With Stent, Orthopedic Surgery Additional Past Surgical History / Comment(s): FASCIOTOMY BILAT HANDS, LT FOOT SURGERY, MUSCLE BIOPSY RT LEG, right shoulder arthroscopy Past Anesthesia/Blood Transfusion Reactions: No Reported Reaction Date of Last Stent Placement:: jan 2017 Past Psychological History: Depression Smoking Status: Never smoker Past Alcohol Use History: None Reported Past Drug Use History: None Reported - Past Family History Father Family Medical History: Coronary Artery Disease (CAD), Diabetes Mellitus, Prostate Disorder Additional Family Medical History / Comment(s): st. caths at home Sister(s) Family Medical History: Diabetes Mellitus Mother Family Medical History: Cancer, COPD, Fibromyalgia Additional Family Medical History / Comment(s): Bladder Cancer. General Exam General appearance: alert, in no apparent distress Head exam: Present: atraumatic, normocephalic, normal inspection Eye exam: Present: normal appearance, PERRL, EOMI. Absent: scleral icterus, conjunctival injection, periorbital swelling ENT exam: Present: normal exam, mucous membranes moist Neck exam: Present: normal inspection. Absent: tenderness, meningismus, lymphadenopathy Respiratory exam: Present: normal lung sounds bilaterally. Absent: respiratory distress, wheezes, rales, rhonchi, stridor Cardiovascular Exam: Present: regular rate, normal rhythm, normal heart sounds. Absent: systolic murmur, diastolic murmur, rubs, gallop, clicks GI/Abdominal exam: Present: soft, normal bowel sounds. Absent: distended, tend erness, guarding, rebound, rigid Extremities exam: Present: normal inspection, full ROM, normal capillary refill. Absent: tenderness, pedal edema, joint swelling, calf tenderness Back exam: Present: normal inspection Neurological exam: Present: alert, oriented X3, CN II-XII intact Psychiatric exam: Present: normal affect, normal mood Skin exam: Present: warm, dry, intact, normal color. 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 Normal lab values here in the ER no chest pain asymptomatic patient will be discharged home to follow up with cardiology regarding monitor for further evaluation of abnormal heart rate - Lab Data Result diagrams: 02/24/22 00:11 02/24/22 01:00 Lab Results 02/24/22 02/24/22 02/24/22 Range/Units 00:11 00:11 01:00 WBC 7.4 (3.8-10.6) k/uL RBC 5.53 (4.30-5.90) m/uL Hgb 15.1 (13.0-17.5) gm/dL Hct 47.7 (39.0-53.0) % MCV 86.2 (80.0-100.0) fL MCH 27.4 (25.0-35.0) pg MCHC 31.8 (31.0-37.0) g/dL RDW 14.2 (11.5-15.5) % Plt Count 235 (150-450) k/uL MPV 8.0 Neutrophils % 56 % Lymphocytes % 32 % Monocytes % 7 % Eosinophils % 1 % Basophils % 1 % Neutrophils # 4.2 (1.3-7.7) k/uL Lymphocytes # 2.4 (1.0-4.8) k/uL Monocytes # 0.6 (0-1.0) k/uL Eosinophils # 0.1 (0-0.7) k/uL Basophils # 0.1 (0-0.2) k/uL PT 10.4 (9.0-12.0) sec INR 0.9 (<1.2) APTT 24.0 (22.0-30.0) sec Sodium 141 (137-145) mmol/L Potassium 4.0 (3.5-5.1) mmol/L Chloride 103 (98-107) mmol/L Carbon Dioxide 24 (22-30) mmol/L Anion Gap 14 mmol/L BUN 20 (9-20) mg/dL Creatinine 0.87 (0.66-1.25) mg/dL Est GFR (CKD-EPI)AfAm >90 (>60 ml/min/1.73 sqM) Est GFR (CKD-EPI)NonAf >90 (>60 ml/min/1.73 sqM) Glucose 133 H (74-99) mg/dL Calcium 9.7 (8.4-10.2) mg/dL Phosphorus 3.7 (2.5-4.5) mg/dL Magnesium 1.8 (1.6-2.3) mg/dL Total Bilirubin 0.5 (0.2-1.3) mg/dL AST 31 (17-59) U/L ALT 30 (4-49) U/L Alkaline Phosphatase 108 (38-126) U/L Troponin I (0.000-0.034) ng/mL NT-Pro-B Natriuret Pep pg/mL Total Protein 7.2 (6.3-8.2) g/dL Albumin 4.6 (3.5-5.0) g/dL 02/24/22 02/24/22 Range/Units 01:00 01:00 WBC (3.8-10.6) k/uL RBC (4.30-5.90) m/uL Hgb (13.0-17.5) gm/dL Hct (39.0-53.0) % MCV (80.0-100.0) fL MCH (25.0-35.0) pg MCHC (31.0-37.0) g/dL RDW (11.5-15.5) % Plt Count (150-450) k/uL MPV Neutrophils % % Lymphocytes % % Monocytes % % Eosinophils % % Basophils % % Neutrophils # (1.3-7.7) k/uL Lymphocytes # (1.0-4.8) k/uL Monocytes # (0-1.0) k/uL Eosinophils # (0-0.7) k/uL Basophils # (0-0.2) k/uL PT (9.0-12.0) sec INR (<1.2) APTT (22.0-30.0) sec Sodium (137-145) mmol/L Potassium (3.5-5.1) mmol/L Chloride (98-107) mmol/L Carbon Dioxide (22-30) mmol/L Anion Gap mmol/L BUN (9-20) mg/dL Creatinine (0.66-1.25) mg/dL Est GFR (CKD-EPI)AfAm (>60 ml/min/1.73 sqM) Est GFR (CKD-EPI)NonAf (>60 ml/min/1.73 sqM) Glucose (74-99) mg/dL Calcium (8.4-10.2) mg/dL Phosphorus (2.5-4.5) mg/dL Magnesium (1.6-2.3) mg/dL Total Bilirubin (0.2-1.3) mg/dL AST (17-59) U/L ALT (4-49) U/L Alkaline Phosphatase (38-126) U/L Troponin I <0.012 (0.000-0.034) ng/mL NT-Pro-B Natriuret Pep 93 pg/mL Total Protein (6.3-8.2) g/dL Albumin (3.5-5.0) g/dL Disposition Clinical Impression: Tachycardia, Palpitations, Arrhythmia Disposition: HOME SELF-CARE Condition: Good Instructions (If sedation given, give patient instructions): Heart Palpitations (ED), Tachycardia (ED) Is patient prescribed a controlled substance at d/c from ED?: No Referrals: Bharti Amin DO [Primary Care Provider] - 1-2 days Time of Disposition: 02:30
[2022-02-24] MEDS ORDERED: SODIUM CHLORIDE 0.9% 1,000 ML IV STA (00:54)
[2022-02-24 01:49] LABS: Basophils # (A) 0.1 k/uL (0-0.2); Basophils % (A) 1 %; Eosinophils # (A) 0.1 k/uL (0-0.7); Eosinophils % (A) 1 %; HCT 47.7 % (39.0-53.0); HGB 15.1 gm/dL (13.0-17.5); Lymphocytes # (A) 2.4 k/uL (1.0-4.8); Lymphocytes % (A) 32 %; MCH 27.4 pg (25.0-35.0); MCHC 31.8 g/dL (31.0-37.0); MCV 86.2 fL (80.0-100.0); Monocytes # (A) 0.6 k/uL (0-1.0); Monocytes % (A) 7 %; Neutrophils # (A) 4.2 k/uL (1.3-7.7); Neutrophils % (A) 56 %; Platelet Count 235 k/uL (150-450); RBC 5.53 m/uL (4.30-5.90); RDW 14.2 % (11.5-15.5); WBC 7.4 k/uL (3.8-10.6)
[2022-02-24 02:06] LABS: Blood Urea Nitrogen 20 mg/dL (9-20); Carbon Dioxide 24 mmol/L (22-30); Glucose 133 mg/dL (74-99)
[2022-02-24 02:07] LABS: ALT 30 U/L (4-49); AST 31 U/L (17-59); African American GFR (CKD) >90 (>60 ml/min/1.73 sqM); Albumin 4.6 g/dL (3.5-5.0); Alkaline Phosphatase 108 U/L (38-126); Calcium 9.7 mg/dL (8.4-10.2); Magnesium 1.8 mg/dL (1.6-2.3); Non-African American GFR(CKD) >90 (>60 ml/min/1.73 sqM); Phosphorus 3.7 mg/dL (2.5-4.5); Total Bilirubin 0.5 mg/dL (0.2-1.3); Total Protein 7.2 g/dL (6.3-8.2)
[2022-02-24 02:07] LABS: INR 0.9 (<1.2); Prothrombin Time 10.4 sec (9.0-12.0)
[2022-02-24 02:21] LABS: Anion Gap 14 mmol/L; Chloride 103 mmol/L (98-107); Sodium 141 mmol/L (137-145)
[2022-02-24 02:41] VITALS: BP 145/95; PULSE 71
== END 2022-02-24 02:40 | disposition home or self-care (01) ==
LOC: EC 00:02
DX: R00.0 Tachycardia, unspecified (principal); I49.9 Cardiac arrhythmia, unspecified; E11.9 Type 2 diabetes mellitus without complications; K21.9 Gastro-esophageal reflux disease without esophagitis; I10 Essential (primary) hypertension; F32.A Depression, unspecified; Z88.5 Allergy status to narcotic agent; Z91.030 Bee allergy status; Z79.82 Long term (current) use of aspirin; Z79.84 Long term (current) use of oral hypoglycemic drugs; Z79.899 Other long term (current) drug therapy
CPT/HCPCS: 36415; 80053; 83605; 83735; 83880; 84100; 84443; 84484; 85025; 85610; 85730; 93005; 96360; 99285

== ENCOUNTER 2022-07-27 03:04 | Observation (INO) | payer BC ==
[2022-07-27] MEDS ORDERED: MORPHINE SULFATE 4 MG/ML SYRINGE IV STA (03:28)
[2022-07-27] MEDS ORDERED: SODIUM CHLORIDE 0.9% 1,000 ML IV STA (03:28)
--- NOTE | 2022-07-27 03:43 | ED ---
Recheck HPI - General Chief Complaint: Recheck/Abnormal Lab/Rx Stated Complaint: high blood pressure Time Seen by Provider: 07/27/22 03:26 Source: patient, RN notes reviewed, old records reviewed Mode of arrival: ambulatory Limitations: no limitations - History of Present Illness Initial Comments: This is a 57-year-old male to the ER for evaluation today. Patient's coming in for evaluation of elevated blood pressure with heart history. No change in medication. Patient does have occasional chest pain and severe headache currently. No travel history no sick contacts no other injuries or trauma no fever. No shortness of breath no diaphoresis. Patient does have history of diabetes high blood pressure patient is also having blurred vision and dizziness MD Complaint: other (Elevated blood pressure headache and chest pain) -: hour(s) Returns Today for: request for prescription, persistent/worsening pain related to initial visit Symptoms Since Prior Visit: worsening pain (Chest pain headache dizziness) Context: planned re-check Treatments Prior to Arrival: other medications, home treatments, other - Related Data Home Medications Medication Instructions Recorded Confirmed amLODIPine BESYLATE [Norvasc] 10 mg PO QAM 02/14/14 02/24/22 Citalopram Hydrobromide 40 mg PO HS 09/11/16 02/24/22 [Citalopram HBr] Empagliflozin [Jardiance] 25 mg PO QAM 02/27/19 02/24/22 lisinopriL [Prinivil] 10 mg PO HS 02/27/19 02/24/22 metFORMIN HCL [metFORMIN HCL ER 1,000 mg PO BID 02/27/19 02/24/22 Osmotic] Aspirin 81 mg PO QAM 06/04/21 02/24/22 Empagliflozin [Jardiance] 25 mg PO DAILY 02/24/22 02/24/22 RABEprazole SODIUM 20 mg PO DAILY 02/24/22 02/24/22 busPIRone HCL [Buspar] 7.5 mg PO BID 02/24/22 02/24/22 Previous Rx's Medication Instructions Recorded Metoprolol Tartrate [Lopressor] 25 mg PO BID #60 tab 01/27/17 Allergies Allergy/AdvReac Type Severity Reaction Status Date / Time oxycodone HCl [From Percocet] Allergy Anaphylaxis Verified 02/24/22 00:38 venom-honey bee Allergy Swelling Verified 02/24/22 00:38 [bee venom (honey bee)] codeine AdvReac Itching Verified 02/24/22 00:38 Review of Systems ROS Statement: Those systems with pertinent positive or pertinent negative responses have been documented in the HPI. ROS Other: All systems not noted in ROS Statement are negative. Past Medical History Past Medical History: Chest Pain / Angina, Diabetes Mellitus, GERD/Reflux, Hypertension, Sleep Apnea/CPAP/BIPAP Additional Past Medical History / Comment(s): kidney stone. History of Any Multi-Drug Resistant Organisms: None Reported Past Surgical History: Heart Catheterization With Stent, Orthopedic Surgery Additional Past Surgical History / Comment(s): FASCIOTOMY BILAT HANDS, LT FOOT SURGERY, MUSCLE BIOPSY RT LEG, right shoulder arthroscopy Past Anesthesia/Blood Transfusion Reactions: No Reported Reaction Date of Last Stent Placement:: jan 2017 Past Psychological History: Depression Smoking Status: Never smoker Past Alcohol Use History: None Reported Past Drug Use History: None Reported - Past Family History Father Family Medical History: Coronary Artery Disease (CAD), Diabetes Mellitus, Prostate Disorder Additional Family Medical History / Comment(s): st. caths at home Sister(s) Family Medical History: Diabetes Mellitus Mother Family Medical History: Cancer, COPD, Fibromyalgia Additional Family Medical History / Comment(s): Bladder Cancer. General Exam Limitations: no limitations General appearance: alert, in no apparent distress, anxious Head exam: Present: atraumatic, normocephalic, normal inspection Eye exam: Present: normal appearance, PERRL, EOMI. Absent: scleral icterus, conjunctival injection, periorbital swelling ENT exam: Present: normal exam, mucous membranes moist Neck exam: Present: normal inspection. Absent: tenderness, meningismus, lymphadenopathy Respiratory exam: Present: normal lung sounds bilaterally. Absent: respiratory distress, wheezes, rales, rhonchi, stridor Cardiovascular Exam: Present: regular rate, normal rhythm, normal heart sounds. Absent: systolic murmur, diastolic murmur, rubs, gallop, clicks GI/Abdominal exam: Present: soft, normal bowel sounds. Absent: distended, tenderness, guarding, rebound, rigid Extremities exam: Present: normal inspection, full ROM, normal capillary refill. Absent: tenderness, pedal edema, joint swelling, calf tenderness Back exam: Present: normal inspection Neurological exam: Present: alert, oriented X3, CN II-XII intact Psychiatric exam: Present: normal affect, normal mood Skin exam: Present: warm, dry, intact, normal color. Absent: rash Course Vital Signs 07/27/22 07/27/22 07/27/22 03:18 04:00 04:09 Temperature 97.6 F Pulse Rate 65 61 85 Respiratory 16 16 16 Rate Blood Pressure 151/88 151/94 151/94 O2 Sat by Pulse 96 94 L 96 Oximetry - Reevaluation(s) Reevaluation #1: 07/27/22 04:52 Medical records reviewed Reevaluation #2: 07/27/22 04:52 Patient symptoms remain persistent here in the ER with headache and chest pain Reevaluation #3: 07/27/22 04:52 Patient informed results questions answered Reevaluation #4: 07/27/22 04:52 Differential Chest Pain: Stable Angina, Unstable Angina, STEMI, NSTEMI Aortic Dissection, Pneumothorax, Musculoskeletal, Esophageal Spasm GERD, Cholecystitis, Pancreatitis, Zoster, this is not meant to be an all-inclusive list. Differential Headache: Migraine, tension, cluster, carbon monoxide, central venous thrombosis, pension karma temporal arteritis, acute closure glaucoma, intercranial hemorrhage, mastoiditis, sinusitis, head injury, this is not meant to be an all-inclusive list. Reevaluation #5: 07/27/22 04:53 Was pt. sent in by a medical professional or institution? @ -no Did you speak to anyone other than the patient for history? @ -no Did you review nursing and triage notes? @ -agree Were old charts reviewed? @ -prior troponin levels Differential Diagnosis? @ -prior EKG interpreted by me (3pts min.)? @ -[none] X-rays interpreted by me (1pt min.)? @ -yes CT interpreted by me (1pt min.)? @ -[none] U/S interpreted by me (1pt. min.)? @ -[none] What testing was considered but not performed? (CT, X-rays, U/S, labs)? Why? @ -none What meds were considered but not given? Why? @ -[none] Did you discuss the management of the patient with other professionals? @ -no Did you reconcile home meds? @ -[none] Was smoking cessation discussed for >3mins.? @ -[none] Was critical care preformed (if so, how long)? @ -[none] Were there social determinants of health that impacted care today? How? (Homel essness, low income, unemployed, alcoholism, drug addiction, transportation, low edu. Level, literacy, decrease access to med. care, detention, rehab)? @ -no Was there de-escalation of care discussed even if they declined? (Discuss DNR or withdrawal of care, Hospice)? @ -no What co-morbidities impacted this encounter? (DM, HTN, Smoking, COPD, CAD, Cancer, CVA, Hep., AIDS, mental health diagnosis, sleep apnea, morbid obesity)? @ -no Was patient admitted / discharged? @ -admit Undiagnosed new problem with uncertain prognosis? @ -[none] Drug Therapy requiring intensive monitoring for toxicity (Heparin, Nitro, Insulin, Cardizem)? @ -[none] Were any procedures done? @ -[none] Diagnosis/symptom? @ -[default] Acute, or Chronic, or Acute on Chronic? @ -[default] Uncomplicated (without systemic symptoms) or Complicated (systemic symptoms)? @ -[default] Side effects of treatment? @ -[none] Exacerbation, Progression, or Severe Exacerbation] @ -[no] Poses a threat to life or bodily function? @ -[no] - Consultations Consultation #1: (Admitting physicians who agree to admit this patient Medical Decision Making - Medical Decision Making 57 male to the emergency department for evaluation patient does have persistent chest pain.. Headache. Elevated blood pressure not feeling well. Patient will be admitted for cardiology evaluation - Lab Data Result diagrams: 07/27/22 03:46 07/27/22 03:46 Lab Results 07/27/22 07/27/22 07/27/22 Range/Units 03:46 03:46 03:46 WBC 5.5 (3.8-10.6) k/uL RBC 5.54 (4.30-5.90) m/uL Hgb 15.1 (13.0-17.5) gm/dL Hct 46.8 (39.0-53.0) % MCV 84.6 (80.0-100.0) fL MCH 27.3 (25.0-35.0) pg MCHC 32.3 (31.0-37.0) g/dL RDW 14.0 (11.5-15.5) % Plt Count 191 (150-450) k/uL MPV 7.5 Neutrophils % 51 % Lymphocytes % 34 % Monocytes % 9 % Eosinophils % 3 % Basophils % 1 % Neutrophils # 2.8 (1.3-7.7) k/uL Lymphocytes # 1.9 (1.0-4.8) k/uL Monocytes # 0.5 (0-1.0) k/uL Eosinophils # 0.2 (0-0.7) k/uL Basophils # 0.1 (0-0.2) k/uL PT 9.9 (9.0-12.0) sec INR 0.9 (<1.2) APTT 24.2 (22.0-30.0) sec Sodium 139 (137-145) mmol/L Potassium 4.8 (3.5-5.1) mmol/L Chloride 108 H (98-107) mmol/L Carbon Dioxide 23 (22-30) mmol/L Anion Gap 8 mmol/L BUN 18 (9-20) mg/dL Creatinine 0.51 L (0.66-1.25) mg/dL Est GFR (CKD-EPI)AfAm >90 (>60 ml/min/1.73 sqM) Est GFR (CKD-EPI)NonAf >90 (>60 ml/min/1.73 sqM) Glucose 138 H (74-99) mg/dL Calcium 9.1 (8.4-10.2) mg/dL Phosphorus 3.7 (2.5-4.5) mg/dL Magnesium 1.9 (1.6-2.3) mg/dL Total Bilirubin 0.8 (0.2-1.3) mg/dL AST 32 (17-59) U/L ALT 29 (4-49) U/L Alkaline Phosphatase 69 (38-126) U/L Troponin I (0.000-0.034) ng/mL Total Protein 7.1 (6.3-8.2) g/dL Albumin 4.5 (3.5-5.0) g/dL 07/27/22 Range/Units 03:46 WBC (3.8-10.6) k/uL RBC (4.30-5.90) m/uL Hgb (13.0-17.5) gm/dL Hct (39.0-53.0) % MCV (80.0-100.0) fL MCH (25.0-35.0) pg MCHC (31.0-37.0) g/dL RDW (11.5-15.5) % Plt Count (150-450) k/uL MPV Neutrophils % % Lymphocytes % % Monocytes % % Eosinophils % % Basophils % % Neutrophils # (1.3-7.7) k/uL Lymphocytes # (1.0-4.8) k/uL Monocytes # (0-1.0) k/uL Eosinophils # (0-0.7) k/uL Basophils # (0-0.2) k/uL PT (9.0-12.0) sec INR (<1.2) APTT (22.0-30.0) sec Sodium (137-145) mmol/L Potassium (3.5-5.1) mmol/L Chloride (98-107) mmol/L Carbon Dioxide (22-30) mmol/L Anion Gap mmol/L BUN (9-20) mg/dL Creatinine (0.66-1.25) mg/dL Est GFR (CKD-EPI)AfAm (>60 ml/min/1.73 sqM) Est GFR (CKD-EPI)NonAf (>60 ml/min/1.73 sqM) Glucose (74-99) mg/dL Calcium (8.4-10.2) mg/dL Phosphorus (2.5-4.5) mg/dL Magnesium (1.6-2.3) mg/dL Total Bilirubin (0.2-1.3) mg/dL AST (17-59) U/L ALT (4-49) U/L Alkaline Phosphatase (38-126) U/L Troponin I <0.012 (0.000-0.034) ng/mL Total Protein (6.3-8.2) g/dL Albumin (3.5-5.0) g/dL - EKG Data -: EKG Interpreted by Me (EKG is sinus 68 NC 187 QRS 110 QTc 401) Disposition Clinical Impression: S/P right coronary artery (RCA) stent placement, HTN (hypertension), Headache, Chest pain, Dizziness Disposition: ADMITTED IP TO THIS [facility] Condition: Fair Is patient prescribed a controlled substance at d/c from ED?: No Referrals: Bharti Amin DO [Primary Care Provider] - 1-2 days Time of Disposition: 05:00
[2022-07-27 04:07] LABS: Basophils # (A) 0.1 k/uL (0-0.2); Basophils % (A) 1 %; Eosinophils # (A) 0.2 k/uL (0-0.7); Eosinophils % (A) 3 %; HCT 46.8 % (39.0-53.0); HGB 15.1 gm/dL (13.0-17.5); Lymphocytes # (A) 1.9 k/uL (1.0-4.8); Lymphocytes % (A) 34 %; MCH 27.3 pg (25.0-35.0); MCHC 32.3 g/dL (31.0-37.0); MCV 84.6 fL (80.0-100.0); Mean Platelet Volume 7.5; Monocytes # (A) 0.5 k/uL (0-1.0); Monocytes % (A) 9 %; Neutrophils # (A) 2.8 k/uL (1.3-7.7); Neutrophils % (A) 51 %; Platelet Count 191 k/uL (150-450); RBC 5.54 m/uL (4.30-5.90); WBC 5.5 k/uL (3.8-10.6)
[2022-07-27 04:17] LABS: ALT 29 U/L (4-49); AST 32 U/L (17-59); African American GFR (CKD) >90 (>60 ml/min/1.73 sqM); Albumin 4.5 g/dL (3.5-5.0); Alkaline Phosphatase 69 U/L (38-126); Anion Gap 8 mmol/L; Blood Urea Nitrogen 18 mg/dL (9-20); Calcium 9.1 mg/dL (8.4-10.2); Carbon Dioxide 23 mmol/L (22-30); Chloride 108 mmol/L (98-107); Glucose 138 mg/dL (74-99); Magnesium 1.9 mg/dL (1.6-2.3); Non-African American GFR(CKD) >90 (>60 ml/min/1.73 sqM); Phosphorus 3.7 mg/dL (2.5-4.5); Sodium 139 mmol/L (137-145); Total Bilirubin 0.8 mg/dL (0.2-1.3); Total Protein 7.1 g/dL (6.3-8.2)
[2022-07-27 04:18] LABS: Potassium 4.8 mmol/L (3.5-5.1)
[2022-07-27 04:27] LABS: INR 0.9 (<1.2); Partial Thromboplastin Time 24.2 sec (22.0-30.0); Prothrombin Time 9.9 sec (9.0-12.0)
[2022-07-27] MEDS ORDERED: PROCHLORPERAZINE INJ 10 MG/2 ML VIAL IVP STA (04:55)
[2022-07-27] MEDS ORDERED: HYDROmorphone 0.5 MG/0.5 ML SYRINGE IVP PRN (04:55)
[2022-07-27] MEDS ORDERED: NALOXONE 0.4 MG/ML 1 ML VIAL IV PRN (04:55)
[2022-07-27] MEDS ORDERED: KETOROLAC 15 MG/ML 1 ML VIAL IVP STA (04:55)
[2022-07-27] MEDS ORDERED: PROCHLORPERAZINE INJ 10 MG/2 ML VIAL IVP PRN (04:55)
[2022-07-27] MEDS ORDERED: ONDANSETRON 4 MG/2 ML VIAL IVP PRN (04:55)
[2022-07-27] MEDS ORDERED: diphenhydrAMINE 50 MG/ML 1 ML VIAL IVP PRN (04:55)
[2022-07-27] MEDS ORDERED: diphenhydrAMINE 50 MG/ML 1 ML VIAL IVP STA (04:55)
[2022-07-27] MEDS ORDERED: MORPHINE SULFATE 4 MG/ML SYRINGE IV PRN (04:55)
[2022-07-27] MEDS ORDERED: hydrALAZINE HCL 20 MG/ML 1 ML VIAL IVP STA (04:55)
[2022-07-27] MEDS ORDERED: SODIUM CHLORIDE 0.9% 1,000 ML IV SCH (05:00)
--- NOTE | 2022-07-27 06:20 | CT ---
EXAMINATION TYPE: CT brain wo con DATE OF EXAM: 07/27/2022 COMPARISON: None HISTORY: headache, increased bp CT DLP: 1188.4 mGycm Automated exposure control for dose reduction was used. Images obtained of the brain with no contrast. Ventricles have normal size. There is no mass effect nor midline shift. No sign of intracranial hemor rhage. Calvarium is intact. Skull base is intact. There is small mucous retention cyst right maxillar y sinus. IMPRESSION: Negative unenhanced head CT scan.
[2022-07-27 09:19] VITALS: RESP 18
--- NOTE | 2022-07-27 09:26 | P.CRDCN ---
History of Present Illness History of present illness: HISTORY OF PRESENT ILLNESS: This is a 57-year-old male with a past medical history significant for hypertension, hyperlipidemia, diabetes, obstructive sleep apnea with CPAP use, coronary artery disease with previous PCI of the RCA, and mild aortic stenosis. Patient follows in the office with Dr. Jesus. We have been asked to see the patient in consultation for hypertension. Patient examined at the bedside. Patient presented to the hospital with a chief complaint of a headache. The patient states he checked his blood pressure home and it was found to be in the 180s over 100s. The patient states he has been compliant with all of his medications. He also reports he has been compliant with a low-sodium diet. He denies any chest pain or pressure. He denies any shortness of breath. Patient's blood pressure has been running in the 150s since coming to the ER. * EKG reveals sinus mechanism with no signs of acute ischemia. * CT of the brain: Negative for acute process * Laboratory data: WC 5.5. Hemoglobin 15.1. Platelet count 191. Sodium 139. Potassium 4.8. BUN 18. Creatinine 0.51. Troponin negative 2. ProBNP 87. * Current home cardiac medications include metoprolol succinate 25 mg twice a day, Norvasc 10 mg daily, aspirin 81 mg daily, lisinopril 20 mg at night * Most recent echocardiogram obtained in June 2021 revealed ejection fraction 55%, mild aortic stenosis, mild mitral regurgitation, mild tricuspid regurgitation * Patient underwent stress test in May 2021 which revealed fixed defect of small size involving the inferior basal segment, could be secondary to soft tissue attenuation though previous subendocardial IL cannot be completely excluded. * Cardiac catheterization history: January 2017 with stenting to the RCA REVIEW OF SYSTEMS: At the time of my exam: CONSTITUTIONAL: Denies fever or chills. HEENT: Denies blurred vision, vision changes, or eye pain. Denies hemoptysis CARDIOVASCULAR: Denies chest pain. Denies orthopnea. Denies PND. Denies palpitations RESPIRATORY: Denies shortness of breath. GASTROINTESTINAL: Denies abdominal pain. Denies nausea or vomiting. HEMATOLOGIC: Denies bleeding disorders. GENITOURINARY: Denies any blood in urine. SKIN: Denies pruitis. Denies rash. PHYSICAL EXAM: VITAL SIGNS: Reviewed. GENERAL: Well-developed in no acute distress. HEENT: Head is normocephalic. Pupils are equal, round. Sclerae anicteric. Mucous membranes of the mouth are moist. Neck supple. No JVD or thyromegaly LUNGS: Respirations even and unlabored. Lungs essentially clear to auscultation bilaterally. HEART: Regular rate and rhythm. S1 and S2 heard. Systolic murmur noted ABDOMEN: Soft. Nondistended. Nontender. EXTREMITIES: Normal range of motion. No clubbing or cyanosis. Peripheral pulses intact. No lower extremity edema NEUROLOGIC: Awake and alert. Oriented x 3. ASSESSMENT: Headache Hypertensive emergency, improving Hyperlipidemia, not on statin therapy outpatient Diabetes Obstructive sleep apnea with CPAP use Coronary artery disease with previous stenting of the RCA Mild aortic stenosis PLAN: Obtain 2-D echo to assess cardiac structure and function Increase lisinopril to twice a day dosing Add hydrochlorothiazide 25 mg daily Add Lipitor 40 mg at night Continue to monitor blood pressure Further recommendations pending patient's course Nurse practitioner note has been reviewed by physician. Signing provider agrees with the documented findings, assessment, and plan of care. Past Medical History Past Medical History: Chest Pain / Angina, Diabetes Mellitus, GERD/Reflux, Hypertension, Sleep Apnea/CPAP/BIPAP Additional Past Medical History / Comment(s): kidney stone. History of Any Multi-Drug Resistant Organisms: None Reported Past Surgical History: Heart Catheterization With Stent, Orthopedic Surgery Additional Past Surgical History / Comment(s): FASCIOTOMY BILAT HANDS, LT FOOT SURGERY, MUSCLE BIOPSY RT LEG, right shoulder arthroscopy Past Anesthesia/Blood Transfusion Reactions: No Reported Reaction Date of Last Stent Placement:: jan 2017 Past Psychological History: Depression Smoking Status: Never smoker Past Alcohol Use History: None Reported Past Drug Use History: None Reported - Past Family History Father Family Medical History: Coronary Artery Disease (CAD), Diabetes Mellitus, Prostate Disorder Additional Family Medical History / Comment(s): st. caths at home Sister(s) Family Medical History: Diabetes Mellitus Mother Family Medical History: Cancer, COPD, Fibromyalgia Additional Family Medical History / Comment(s): Bladder Cancer. Medications and Allergies Home Medications Medication Instructions Recorded Confirmed Type amLODIPine BESYLATE [Norvasc] 10 mg PO DAILY 02/14/14 07/27/22 History Citalopram Hydrobromide 40 mg PO HS 09/11/16 07/27/22 History [Citalopram HBr] Aspirin 81 mg PO DAILY 06/04/21 07/27/22 History Empagliflozin [Jardiance] 25 mg PO DAILY 02/24/22 07/27/22 History RABEprazole SODIUM 20 mg PO DAILY 02/24/22 07/27/22 History busPIRone HCL [Buspar] 7.5 mg PO BID 02/24/22 07/27/22 History Metoprolol Succinate (ER) [Toprol 25 mg PO BID 07/27/22 07/27/22 History Xl] Montelukast [Singulair] 10 mg PO DAILY PRN 07/27/22 07/27/22 History Semaglutide [Ozempic] 1 mg SQ LAZO 07/27/22 07/27/22 History lisinopriL [Prinivil] 20 mg PO HS 07/27/22 07/27/22 History metFORMIN HCL ER [Glucophage XR] 500 mg PO BID 07/27/22 07/27/22 History Allergies Allergy/AdvReac Type Severity Reaction Status Date / Time codeine Allergy Swelling Verified 07/27/22 06:59 scrotum oxycodone HCl [From Percocet] Allergy Anaphylaxis Verified 07/27/22 06:59 venom-honey bee Allergy Anaphylaxis Verified 07/27/22 06:59 [bee venom (honey bee)] Physical Exam Vitals: Vital Signs Temp Pulse Resp BP Pulse Ox 07/27/22 06:00 88 16 136/94 94 L 07/27/22 05:30 78 16 131/69 96 07/27/22 05:00 68 16 149/88 99 07/27/22 04:30 88 16 159/94 96 07/27/22 04:09 85 16 151/94 96 07/27/22 04:00 61 16 151/94 94 L 07/27/22 03:18 97.6 F 65 16 151/88 96 Intake and Output 07/26/22 07/27/22 07/27/22 22:59 06:59 14:59 Other: Weight 113.398 kg Results 07/27/22 03:46 07/27/22 03:46 Cardiac Enzymes 07/27/22 07/27/22 07/27/22 Range/Units 03:46 03:46 06:42 AST 32 (17-59) U/L Troponin I <0.012 <0.012 (0.000-0.034) ng/mL Coagulation 07/27/22 Range/Units 03:46 PT 9.9 (9.0-12.0) sec APTT 24.2 (22.0-30.0) sec CBC 07/27/22 Range/Units 03:46 WBC 5.5 (3.8-10.6) k/uL RBC 5.54 (4.30-5.90) m/uL Hgb 15.1 (13.0-17.5) gm/dL Hct 46.8 (39.0-53.0) % Plt Count 191 (150-450) k/uL Comprehensive Metabolic Panel 07/27/22 Range/Units 03:46 Sodium 139 (137-145) mmol/L Potassium 4.8 (3.5-5.1) mmol/L Chloride 108 H (98-107) mmol/L Carbon Dioxide 23 (22-30) mmol/L BUN 18 (9-20) mg/dL Creatinine 0.51 L (0.66-1.25) mg/dL Glucose 138 H (74-99) mg/dL Calcium 9.1 (8.4-10.2) mg/dL AST 32 (17-59) U/L ALT 29 (4-49) U/L Alkaline Phosphatase 69 (38-126) U/L Total Protein 7.1 (6.3-8.2) g/dL Albumin 4.5 (3.5-5.0) g/dL Current Medications Generic Name Dose Route Start Last Admin Trade Name Freq PRN Reason Stop Dose Admin Diphenhydramine HCl 25 mg 07/27/22 04:55 Diphenhydramine 50 Mg/Ml 1 Ml Vial IVP Q6HR PRN Allergy Symptoms Hydromorphone HCl 0.5 mg 07/27/22 04:55 Hydromorphone 0.5 Mg/0.5 Ml Syringe IVP Q3HR PRN Moderate Pain (Scale 4 to 6) Sodium Chloride 1,000 mls @ 130 mls/hr 07/27/22 05:00 07/27/22 05:19 Saline 0.9% IV 130 mls/hr .[id number] Administration Morphine Sulfate 4 mg 07/27/22 04:55 Morphine Sulfate 4 Mg/Ml Syringe IV Q4HR PRN Severe Pain (Scale 7 to 10) Naloxone HCl 0.2 mg 07/27/22 04:55 Naloxone 0.4 Mg/Ml 1 Ml Vial IV Q2M PRN Opioid Reversal Ondansetron HCl 4 mg 07/27/22 04:55 Ondansetron 4 Mg/2 Ml Vial IVP Q8HR PRN Nausea And Vomiting Prochlorperazine Edisylate 5 mg 07/27/22 04:55 Prochlorperazine Inj 10 Mg/2 Ml Vial IVP Q4HR PRN Nausea And Vomiting Intake and Output 07/26/22 07/27/22 07/27/22 22:59 06:59 14:59 Other: Weight 113.398 kg 07/27/22 03:46 07/27/22 03:46
[2022-07-27] MEDS: lisinopriL 20 MG TAB PO SCH ×2 (09:51→20:43)
[2022-07-27] MEDS: hydroCHLOROthiazide 25 MG TAB PO SCH (09:51)
[2022-07-27] MEDS: ASPIRIN 81 MG PO SCH (09:51)
[2022-07-27] MEDS: amLODIPine 10 MG TAB PO SCH (09:51)
[2022-07-27] MEDS: DAPAGLIFLOZIN PROPANEDIOL 10 MG TABLET PO SCH (09:51)
--- NOTE | 2022-07-27 10:19 | P.HPIM ---
History of Present Illness she is a pleasant 57 years old male with past medical history of coronary artery disease status post stent placement, Diabetes Mellitus, GERD, Hypertension, Sleep Apnea/CPAP/BIPAP Patient says that she has been having high blood pressure yesterday and when he checked it at home but was 192/102, usually he checks his about her when it is high or when have symptoms and yesterday he had severe headache when this happened. His headache this morning is completely resolved 0/10 and he denies any other symptoms yesterday or today like no blurred vision or double vision no slurred speech, no weakness numbness no dizziness. He denies chest pain or discomfort, no shortness of breath, no coughing, no abdominal pain or discomfort, no vomiting or diarrhea, no urinary symptoms or dysuria urgency He denies depression currently. He denies smoking alcohol or illicit drugs Patient states that he was taken his blood pressure medication On admission his blood pressure was 151/88, he is a febrile_vitals are stable. Last blood pressure this morning was 129/69. Labs including CBC, INR, BMP and liver enzymes are unremarkable Negative less than 0.012. ProBNP is 87. CT of the brain: No acute process EKG showing normal sinus rhythm at [address]-T changes At home he takes lisinopril 20 mg at bedtime, amlodipine 10 mg daily and metoprolol 25 mg twice daily Emergency room he received morphine, normal saline, hydralazine IV and Toradol Review of Systems Review of systems CONSTITUTIONAL: No fever, no malaise, no fatigue. HEENT: No recent visual problems or hearing problems. Denied any sore throat. CARDIOVASCULAR: No orthopnea, PND, no palpitations, no syncope. PULMONARY: No shortness of breath, no cough, no hemoptysis. GASTROINTESTINAL: No diarrhea, no nausea, no vomiting, no abdominal pain. Normoactive bowel sounds. NEUROLOGICAL: No headaches, no weakness, no numbness. HEMATOLOGICAL: Denies any bleeding or petechiae. GENITOURINARY: Denies any burning micturition, frequency, or urgency. MUSCULOSKELETAL/RHEUMATOLOGICAL: Denies any joint pain, swelling, or any muscle pain. ENDOCRINE: Denies any polyuria or polydipsia. Past Medical History Past Medical History: Chest Pain / Angina, Diabetes Mellitus, GERD/Reflux, Hypertension, Sleep Apnea/CPAP/BIPAP Additional Past Medical History / Comment(s): kidney stone. History of Any Multi-Drug Resistant Organisms: None Reported Past Surgical History: Heart Catheterization With Stent, Orthopedic Surgery Additional Past Surgical History / Comment(s): FASCIOTOMY BILAT HANDS, LT FOOT SURGERY, MUSCLE BIOPSY RT LEG, right shoulder arthroscopy Past Anesthesia/Blood Transfusion Reactions: No Reported Reaction Date of Last Stent Placement:: jan 2017 Past Psychological History: Depression Smoking Status: Never smoker Past Alcohol Use History: None Reported Past Drug Use History: None Reported - Past Family History Father Family Medical History: Coronary Artery Disease (CAD), Diabetes Mellitus, Prostate Disorder Additional Family Medical History / Comment(s): st. caths at home Sister(s) Family Medical History: Diabetes Mellitus Mother Family Medical History: Cancer, COPD, Fibromyalgia Additional Family Medical History / Comment(s): Bladder Cancer. Medications and Allergies Home Medications Medication Instructions Recorded Confirmed Type amLODIPine BESYLATE [Norvasc] 10 mg PO DAILY 02/14/14 07/27/22 History Citalopram Hydrobromide 40 mg PO HS 09/11/16 07/27/22 History [Citalopram HBr] Aspirin 81 mg PO DAILY 06/04/21 07/27/22 History Empagliflozin [Jardiance] 25 mg PO DAILY 02/24/22 07/27/22 History RABEprazole SODIUM 20 mg PO DAILY 02/24/22 07/27/22 History busPIRone HCL [Buspar] 7.5 mg PO BID 02/24/22 07/27/22 History Metoprolol Succinate (ER) [Toprol 25 mg PO BID 07/27/22 07/27/22 History Xl] Montelukast [Singulair] 10 mg PO DAILY PRN 07/27/22 07/27/22 History Semaglutide [Ozempic] 1 mg SQ LAZO 07/27/22 07/27/22 History lisinopriL [Prinivil] 20 mg PO HS 07/27/22 07/27/22 History metFORMIN HCL ER [Glucophage XR] 500 mg PO BID 07/27/22 07/27/22 History Allergies Allergy/AdvReac Type Severity Reaction Status Date / Time codeine Allergy Swelling Verified 07/27/22 06:59 scrotum oxycodone HCl [From Percocet] Allergy Anaphylaxis Verified 07/27/22 06:59 venom-honey bee Allergy Anaphylaxis Verified 07/27/22 06:59 [bee venom (honey bee)] Physical Exam Vitals: Vital Signs Temp Pulse Pulse Resp BP BP Pulse Ox 07/27/22 09:17 97.4 F L 73 18 129/69 96 07/27/22 06:00 88 16 136/94 94 L 07/27/22 05:30 78 16 131/69 96 07/27/22 05:00 68 16 149/88 99 07/27/22 04:30 88 16 159/94 96 07/27/22 04:09 85 16 151/94 96 07/27/22 04:00 61 16 151/94 94 L 07/27/22 03:18 97.6 F 65 16 151/88 96 Intake and Output 07/26/22 07/27/22 07/27/22 22:59 06:59 14:59 Other: Weight 113.398 kg 113.398 kg GENERAL: The patient is alert and oriented x3, not in any acute distress. Well developed, well nourished. HEENT: Pupils are round and equally reacting to light. EOMI. No scleral icterus. No conjunctival pallor. Normocephalic, atraumatic. No pharyngeal erythema. No thyromegaly. CARDIOVASCULAR: S1 and S2 present. No murmurs, rubs, or gallops. PULMONARY: Chest is clear to auscultation, no wheezing or crackles. ABDOMEN: Soft, nontender, nondistended, normoactive bowel sounds. No palpable organomegaly. MUSCULOSKELETAL: No joint swelling or deformity. EXTREMITIES: No cyanosis, clubbing, or pedal edema. NEUROLOGICAL: Gross neurological examination did not reveal any focal deficits. SKIN: No rashes. no petechiae. Results CBC & Chem 7: 07/27/22 03:46 07/27/22 03:46 Labs: Abnormal Lab Results - Last 24 Hours (Table) 07/27/22 Range/Units 03:46 Chloride 108 H (98-107) mmol/L Creatinine 0.51 L (0.66-1.25) mg/dL Glucose 138 H (74-99) mg/dL Assessment and Plan Assessment: Hypertension, uncontrolled, present on admission Headache secondary to above improving obesity with BMI of 33 History of coronary artery disease and Diabetes mellitus History of GERD history of sleep apnea on CPAP Plan: continue with metoprolol, lisinopril (increased dose to twice daily ) and Norvasc. hydrochlorothiazide been added Monitor blood pressure Cardiology consult Labs and medication were reviewed.. Continue same treatment. Continue with symptomatic treatment. Resume home medication. Monitor labs and vitals. DVT and GI prophylaxis. Further recommendations as per clinical course of the patient DVT prophylaxis: Subcutaneous heparin GI Prophylaxis: Pepcid PT/OT: Pending Prognosis is guarded
[2022-07-27] MEDS ORDERED: DEXTROSE 50% SYRINGE 50 ML IVP PRN ×2 (12:14)
[2022-07-27 12:48] LABS: Glucose,Whole Blood 148 mg/dL (70-110)
[2022-07-27] MEDS: INSULIN ASPART (NovoLOG) 100 UNIT/ML VIAL SQ SCH ×3 (12:58→21:02)
[2022-07-27 17:17] LABS: Glucose,Whole Blood 121 mg/dL (70-110)
[2022-07-27] MEDS ORDERED: lisinopriL 20 MG TAB PO SCH (21:00)
[2022-07-27] MEDS ORDERED: ATORVASTATIN 40 MG TAB PO SCH (21:00)
[2022-07-27] MEDS ORDERED: CITALOPRAM HYDROBROMIDE 20 MG TAB PO SCH (21:00)
[2022-07-27 21:07] LABS: Glucose,Whole Blood 139 mg/dL (70-110)
[2022-07-27] MEDS: busPIRone HCl 5 MG TAB PO SCH (21:37)
[2022-07-27] MEDS: ACETAMINOPHEN TAB 500 MG TAB PO PRN (21:37)
[2022-07-28] MEDS: ACETAMINOPHEN TAB 500 MG TAB PO PRN (06:50)
[2022-07-28 06:55] LABS: Glucose,Whole Blood 135 mg/dL (70-110)
[2022-07-28] MEDS: INSULIN ASPART (NovoLOG) 100 UNIT/ML VIAL SQ SCH (06:58)
[2022-07-28 07:25] VITALS: BP 153/77; PULSE 63; TEMP 97.7
[2022-07-28] MEDS ORDERED: PANTOPRAZOLE 40 MG TABLET PO SCH (07:30)
--- NOTE | 2022-07-28 08:53 | CA ---
Transthoracic Echo Report Name: Brandt Alcala Age: 57 Gender: M : 1965 Exam Date: 07/27/2022 13:04 Exam Location: [facility] Ht (in): 73 Wt (lb): 250 Ordering Physician: Yola Qiu Attending/Referring Phys: [id number], Lazarus Coke Crusher Operator Kelsey Franco RDCS Procedure CPT: Indications: LV function Cardiac Hx: Technical Quality: Fair Contrast 1: Total Dose (mL): Contrast 2: Total Dose (mL): MEASUREMENTS (Male / Female) Normal Values 2D ECHO LV Diastolic Diameter PLAX 4.8 cm 4.2 - 5.9 / 3.9 - 5.3 cm LV Systolic Diameter PLAX 2.5 cm IVS Diastolic Thickness 1.5 cm 0.6 - 1.0 / 0.6 - 0.9 cm LVPW Diastolic Thickness 1.4 cm 0.6 - 1.0 / 0.6 - 0.9 cm LV Relative Wall Thickness 0.6 RV Internal Dim ED PLAX 4.0 cm LA Volume 80.3 cm??? 18 - 58 / 22 - 52 cm??? M-MODE Aortic Root Diameter MM 2.8 cm LA Systolic Diameter MM 5.4 cm LA Ao Ratio MM 1.9 AV Cusp Separation MM 2.0 cm DOPPLER AV Peak Velocity 195.5 cm/s AV Peak Gradient 15.3 mmHg AV Mean Velocity 133.4 cm/s AV Mean Gradient 8.0 mmHg AV Velocity Time Integral 36.1 cm LVOT Peak Velocity 163.2 cm/s LVOT Peak Gradient 10.7 mmHg MV Area PHT 3.2 cm??? Mitral E Point Velocity 72.2 cm/s Mitral A Point Velocity 90.5 cm/s Mitral E to A Ratio 0.8 MV Deceleration Time 238.9 ms TR Peak Velocity 262.1 cm/s TR Peak Gradient 27.5 mmHg Right Ventricular Systolic Press 31.9 mmHg FINDINGS Left Ventricle Moderately increased left ventricular wall thickness. Left ventricular cavity size normal. Normal left ventricular systolic function with no obvious regional wall motion abnormalities. Left ventricular ejection fraction is estimated at 55-60 %. Right Ventricle Mild right ventricular dilatation. Right ventricular systolic pressure within normal limits. Right Atrium Normal right atrial size. Left Atrium Severely increased left atrial volume. Mildly increased left atrial area. Mitral Valve Structurally normal mitral valve. Trace mitral regurgitation. Aortic Valve Trileaflet aortic valve. No aortic valve stenosis or regurgitation. Aortic valve sclerosis. Tricuspid Valve Mild tricuspid regurgitation. Pulmonic Valve Trace pulmonic regurgitation. Pericardium No pericardial effusion. Aorta Normal size aortic root and proximal ascending aorta. CONCLUSIONS Normal biventricular dimension and systolic function Aortic sclerosis with no stenosis or insufficiency Previewed by: Dr. Huey Russo MD (Electronically Signed) Final Date: 28 July 2022 08:52
[2022-07-28] MEDS ORDERED: SPIRONOLACTONE 25 MG TAB PO SCH (09:00)
--- NOTE | 2022-07-28 09:19 | P.PN ---
Subjective Progress Note Date: 07/28/22 HISTORY OF PRESENT ILLNESS: This is a 57-year-old male with a past medical history significant for hypertension, hyperlipidemia, diabetes, obstructive sleep apnea with CPAP use, coronary artery disease with previous PCI of the RCA, and mild aortic stenosis. Patient follows in the office with Dr. Jesus. We have been asked to see the patient in consultation for hypertension. Patient examined at the bedside. Patient presented to the hospital with a chief complaint of a headache. The patient states he checked his blood pressure home and it was found to be in the 180s over 100s. The patient states he has been compliant with all of his medications. He also reports he has been compliant with a low-sodium diet. He denies any chest pain or pressure. He denies any shortness of breath. Patient's blood pressure has been running in the 150s since coming to the ER. * EKG reveals sinus mechanism with no signs of acute ischemia. * CT of the brain: Negative for acute process * Laboratory data: WC 5.5. Hemoglobin 15.1. Platelet count 191. Sodium 139. Potassium 4.8. BUN 18. Creatinine 0.51. Troponin negative 2. ProBNP 87. * Current home cardiac medications include metoprolol succinate 25 mg twice a day, Norvasc 10 mg daily, aspirin 81 mg daily, lisinopril 20 mg at night * Most recent echocardiogram obtained in June 2021 revealed ejection fraction 55%, mild aortic stenosis, mild mitral regurgitation, mild tricuspid regurgitation * Patient underwent stress test in May 2021 which revealed fixed defect of small size involving the inferior basal segment, could be secondary to soft tissue attenuation though previous subendocardial CT cannot be completely ex cluded. * Cardiac catheterization history: January 2017 with stenting to the RCA 07/28/2022 Patient examined this morning at the bedside. Patient denies chest pain or pressure. He denies shortness of breath. He continues to report a headache this morning. 2-D echo is currently pending. Systolic blood pressures ranging between [id number]. Patient is borderline bradycardic with a heart rate in the low 60s. PHYSICAL EXAM: VITAL SIGNS: Reviewed. GENERAL: Well-developed in no acute distress. HEENT: Head is normocephalic. Pupils are equal, round. Sclerae anicteric. Mucous membranes of the mouth are moist. Neck supple. No JVD or thyromegaly LUNGS: Respirations even and unlabored. Lungs essentially clear to auscultation bilaterally. HEART: Regular rate and rhythm. S1 and S2 heard. Systolic murmur noted ABDOMEN: Soft. Nondistended. Nontender. EXTREMITIES: Normal range of motion. No clubbing or cyanosis. Peripheral pulses intact. No lower extremity edema NEUROLOGIC: Awake and alert. Oriented x 3. ASSESSMENT: Headache Hypertensive emergency, improving Hyperlipidemia, not on statin therapy outpatient Diabetes Obstructive sleep apnea with CPAP use Coronary artery disease with previous stenting of the RCA Mild aortic stenosis PLAN: 2-D echo ordered. Await results Add Aldactone 25 mg daily Continue additional cardiac medications Patient's beta lisa remains on hold secondary to borderline bradycardia per Dr. Russo Patient may be discharged home today from a cardiac standpoint and follow up on an outpatient basis Patient to have BMP drawn in 1 week. Nurse practitioner note has been reviewed by physician. Signing provider agrees with the documented findings, assessment, and plan of care. Objective - Vital Signs Vital signs: Vital Signs Temp 97.7 F 07/28/22 07:00 Pulse 63 07/28/22 07:00 Resp 18 07/28/22 07:00 BP 153/77 07/28/22 07:00 Pulse Ox 96 07/28/22 07:00 FiO2 Intake & Output 07/27/22 07/28/22 07/28/22 18:59 06:59 18:59 Intake Total 591 1080 Balance 591 1080 Weight 113.398 kg Intake: Oral 591 1080 Other: Voiding Method Toilet # Voids 1 - Labs CBC & Chem 7: 07/27/22 03:46 07/27/22 03:46 Labs: Abnormal Lab Results - Last 24 Hours (Table) 07/27/22 07/27/22 07/27/22 Range/Units 03:46 12:47 17:16 POC Glucose (mg/dL) 148 H 121 H (70-110) mg/dL Hemoglobin A1c 7.3 H (0.0-6.0) % 07/27/22 07/28/22 Range/Units 21:00 06:54 POC Glucose (mg/dL) 139 H 135 H (70-110) mg/dL Hemoglobin A1c (0.0-6.0) %
[2022-07-28] MEDS: lisinopriL 20 MG TAB PO SCH (09:56)
[2022-07-28] MEDS: busPIRone HCl 5 MG TAB PO SCH (09:56)
[2022-07-28] MEDS: amLODIPine 10 MG TAB PO SCH (09:56)
[2022-07-28] MEDS: ASPIRIN 81 MG PO SCH (09:56)
[2022-07-28] MEDS: hydroCHLOROthiazide 25 MG TAB PO SCH (09:57)
[2022-07-28] MEDS: DAPAGLIFLOZIN PROPANEDIOL 10 MG TABLET PO SCH (09:57)
--- NOTE | 2022-07-29 06:45 | P.DS ---
Providers Date of admission: 07/27/22 04:55 Attending physician: Joceline Awan Consults: 07/27/22 04:55 Consult Physician Routine Consulting Provider: Mitul Jesus Consult Reason/Comments: known Do you want consulting provider notified?: Yes Primary care physician: Bharti Amin [facility] Course: Date of service 07/28/2022 Diagnoses Hypertension, uncontrolled, present on admission Headache secondary to above improving obesity with BMI of 33 History of coronary artery disease and Diabetes mellitus History of GERD history of sleep apnea on C Hospital course: she is a pleasant 57 years old male with past medical history of coronary artery disease status post stent placement, Diabetes Mellitus, GERD, Hypertension, Sleep Apnea/CPAP/BIPAP Patient presents because of high blood pressure when he checked it at home but was 192/102, usually he checks his blood pressure it is high or when have symptoms and on admission he had severe headache when this happened. He was already on antihypertensive medication of metoprolol, Norvasc, his home dose of lisinopril increased 20 mg daily and to twice daily and hydrochlorothiazide 25 mg added to the regiment. Also patient evaluated by fraternity adviser. His headache is completely resolved 0/10 and he denies any other symptoms yesterday or today like no blurred vision or double vision no slurred speech, no weakness numbness no dizziness. He denies chest pain or discomfort, no shortness of breath, no coughing, no abdominal pain or discomfort, no vomiting or diarrhea, no urinary symptoms or dysuria urgency Patient wants to go home. Patient was cleared for discharge by fraternity adviser. Problems and management plan were discussed with the patient and he verbalized understanding and acceptance Patient was found stable and can be discharged home in guarded prognosis however he needs follow-up as an outpatient. Patient was instructed to follow up with PCP Dr. Geiger within one week and patient agrees Patient was instructed to follow up with fraternity adviser Dr. Jesus in 1-2 weeks and he agrees Physical exam Gen: patient is a AAOx3, no distress CVS: S1-S2, RRR, no murmur Lungs: B/L CTA, no wheezing Abdomen: soft, no distention, no tenderness, positive bowel sounds Extremity: no leg edema or induration Time spent more than 35 minutes Patient Condition at Discharge: Fair Plan - Discharge Summary New Discharge Prescriptions: New hydroCHLOROthiazide [Hydrodiuril] 25 mg PO DAILY #30 tab Atorvastatin [Lipitor] 40 mg PO HS #30 tab lisinopriL [Zestril] 20 mg PO BID #60 tab Spironolactone [Aldactone] 25 mg PO DAILY #30 tab metFORMIN HCL [Glucophage] 850 mg PO BID #60 tab Acetaminophen Tab [Tylenol] 1,000 mg PO Q6HR PRN tab PRN Reason: Fever and/ or Mild Pain Continue amLODIPine BESYLATE [Norvasc] 10 mg PO DAILY Citalopram Hydrobromide [Citalopram HBr] 40 mg PO HS Empagliflozin [Jardiance] 25 mg PO DAILY Montelukast [Singulair] 10 mg PO DAILY PRN PRN Reason: Allergy Symptoms Semaglutide [Ozempic] 1 mg SQ LAZO Aspirin 81 mg PO DAILY busPIRone HCL [Buspar] 7.5 mg PO BID RABEprazole SODIUM 20 mg PO DAILY Discontinued metFORMIN HCL ER [Glucophage XR] 500 mg PO BID lisinopriL [Prinivil] 20 mg PO HS Metoprolol Succinate (ER) [Toprol Xl] 25 mg PO BID Discharge Medication List amLODIPine BESYLATE [Norvasc] 10 mg PO DAILY 02/14/14 [History] Citalopram Hydrobromide [Citalopram HBr] 40 mg PO HS 09/11/16 [History] Aspirin 81 mg PO DAILY 06/04/21 [History] Empagliflozin [Jardiance] 25 mg PO DAILY 02/24/22 [History] RABEprazole SODIUM 20 mg PO DAILY 02/24/22 [History] busPIRone HCL [Buspar] 7.5 mg PO BID 02/24/22 [History] Montelukast [Singulair] 10 mg PO DAILY PRN 07/27/22 [History] Semaglutide [Ozempic] 1 mg SQ LAZO 07/27/22 [History] Acetaminophen Tab [Tylenol] 1,000 mg PO Q6HR PRN tab 07/28/22 [Rx] Atorvastatin [Lipitor] 40 mg PO HS #30 tab 07/28/22 [Rx] Spironolactone [Aldactone] 25 mg PO DAILY #30 tab 07/28/22 [Rx] hydroCHLOROthiazide [Hydrodiuril] 25 mg PO DAILY #30 tab 07/28/22 [Rx] lisinopriL [Zestril] 20 mg PO BID #60 tab 07/28/22 [Rx] metFORMIN HCL [Glucophage] 850 mg PO BID #60 tab 07/28/22 [Rx] Follow up Appointment(s)/Referral(s): Mitul Jesus DO [STAFF PHYSICIAN] - 08/11/22 2:15 pm Bharti Amin DO [Primary Care Provider] - 1-2 days Ambulatory/Diagnostic Orders: Basic Metabolic Panel [LAB.AMB] Time Frame: 1 Week, Location: None Selected Patient Instructions/Handouts: Chest Pain (DC) Discharge Disposition: HOME SELF-CARE
== END 2022-07-28 11:55 | disposition home or self-care (01) ==
LOC: EC 03:04 → 6NMEDSUR 04:55
PROVIDERS: ADMIT Hospitalist; ATTEND Hospitalist
DX: I16.1 Hypertensive emergency (principal); E11.9 Type 2 diabetes mellitus without complications; K21.9 Gastro-esophageal reflux disease without esophagitis; G47.33 Obstructive sleep apnea (adult) (pediatric); Z87.442 Personal history of urinary calculi; Z95.5 Presence of coronary angioplasty implant and graft; Z98.890 Other specified postprocedural states; F32.A Depression, unspecified; E78.5 Hyperlipidemia, unspecified; I35.0 Nonrheumatic aortic (valve) stenosis; I25.119 Atherosclerotic heart disease of native coronary artery with unspecified angina pectoris; Z82.49 Family history of ischemic heart disease and other diseases of the circulatory system; Z83.3 Family history of diabetes mellitus; Z84.89 Family history of other specified conditions; Z83.6 Family history of other diseases of the respiratory system; Z80.52 Family history of malignant neoplasm of bladder; Z82.69 Family history of other diseases of the musculoskeletal system and connective tissue; Z79.84 Long term (current) use of oral hypoglycemic drugs; Z79.82 Long term (current) use of aspirin; Z79.899 Other long term (current) drug therapy; Z88.5 Allergy status to narcotic agent; Z91.030 Bee allergy status
CPT/HCPCS: 96376; 96375 ×2; 96361; 96374; 99284; 36415; 93005; 93306; 83880; 80053; 83735; 84100; 84484; 85025; 85610; 85730; 83036; 70450; G0378 ×2; J2270; J0360; J1200; J0780; J1885; J1170

== ENCOUNTER 2023-05-06 13:50 | Emergency (ER) | payer BC ==
[2023-05-06 14:27] VITALS: BP 110/75; PULSE 91; TEMP 98.8
--- NOTE | 2023-05-06 14:33 | XR ---
EXAMINATION TYPE: XR shoulder complete LT DATE OF EXAM: 05/06/2023 COMPARISON: NONE HISTORY: Pain TECHNIQUE: Three views are submitted. FINDINGS: The osseous structures are intact. There is no acute fracture or dislocation. Moderate AC joint arth ropathy. Mild diffuse osteopenia. IMPRESSION: 1. Moderate AC joint arthropathy.
--- NOTE | 2023-05-06 15:22 | ED ---
Upper Extremity HPI - General Chief Complaint: Extremity Injury, Upper Stated Complaint: FALL/left shoulder pain Time Seen by Provider: 05/06/23 14:41 Source: patient, family, RN notes reviewed Mode of arrival: ambulatory Limitations: no limitations - History of Present Illness Initial Comments: Patient is a 57-year-old male presented ER with chief complaint of left shoulder pain. Patient states he fell yesterday landing on his shoulder. He denies any other injuries. Patient states he has had prior shoulder surgeries on that side. Patient denies any numbness or tingling in that arm. Patient states and it is extremely painful to move. Patient states he is unable to lift his arm any higher than his abdomen. Patient has no other complaints at this time - Related Data Home Medications Medication Instructions Recorded Confirmed amLODIPine BESYLATE [Norvasc] 10 mg PO DAILY 02/14/14 07/27/22 Citalopram Hydrobromide 40 mg PO HS 09/11/16 07/27/22 [Citalopram HBr] Aspirin 81 mg PO DAILY 06/04/21 07/27/22 Empagliflozin [Jardiance] 25 mg PO DAILY 02/24/22 07/27/22 RABEprazole SODIUM 20 mg PO DAILY 02/24/22 07/27/22 busPIRone HCL [Buspar] 7.5 mg PO BID 02/24/22 07/27/22 Montelukast [Singulair] 10 mg PO DAILY PRN 07/27/22 07/27/22 Semaglutide [Ozempic] 1 mg SQ LAZO 07/27/22 07/27/22 Previous Rx's Medication Instructions Recorded Acetaminophen Tab [Tylenol] 1,000 mg PO Q6HR PRN tab 07/28/22 Atorvastatin [Lipitor] 40 mg PO HS #30 tab 07/28/22 Spironolactone [Aldactone] 25 mg PO DAILY #30 tab 07/28/22 hydroCHLOROthiazide [Hydrodiuril] 25 mg PO DAILY #30 tab 07/28/22 lisinopriL [Zestril] 20 mg PO BID #60 tab 07/28/22 metFORMIN HCL [Glucophage] 850 mg PO BID #60 tab 07/28/22 Allergies Allergy/AdvReac Type Severity Reaction Status Date / Time codeine Allergy Swelling Verified 05/06/23 14:08 scrotum oxycodone HCl [From Percocet] Allergy Anaphylaxis Verified 05/06/23 14:08 venom-honey bee Allergy Anaphylaxis Verified 05/06/23 14:08 [bee venom (honey bee)] Review of Systems ROS Statement: Those systems with pertinent positive or pertinent negative responses have been documented in the HPI. ROS Other: All systems not noted in ROS Statement are negative. Past Medical History Past Medical History: Chest Pain / Angina, Diabetes Mellitus, GERD/Reflux, Hypertension, Sleep Apnea/CPAP/BIPAP Additional Past Medical History / Comment(s): kidney stone. History of Any Multi-Drug Resistant Organisms: None Reported Past Surgical History: Heart Catheterization With Stent, Orthopedic Surgery Additional Past Surgical History / Comment(s): FASCIOTOMY BILAT HANDS, LT FOOT SURGERY, MUSCLE BIOPSY RT LEG, right shoulder arthroscopy Past Anesthesia/Blood Transfusion Reactions: No Reported Reaction Date of Last Stent Placement:: jan 2017 Past Psychological History: Depression Smoking Status: Never smoker Past Alcohol Use History: None Reported Past Drug Use History: None Reported - Past Family History Father Family Medical History: Coronary Artery Disease (CAD), Diabetes Mellitus, Prostate Disorder Additional Family Medical History / Comment(s): st. caths at home Sister(s) Family Medical History: Diabetes Mellitus Mother Family Medical History: Cancer, COPD, Fibromyalgia Additional Family Medical History / Comment(s): Bladder Cancer. General Exam Limitations: no limitations General appearance: alert, in no apparent distress Extremities exam: Present: normal inspection, other (Left shoulder tenderness to deltoid muscle. limtied abduction of shoulder due to pain, surgical scars noted 2+ left radial pulse noted) Skin exam: Present: warm, dry, intact, normal color. Absent: rash Course Vital Signs 05/06/23 05/06/23 14:08 15:28 Temperature 98.8 F Pulse Rate 91 Respiratory 18 16 Rate Blood Pressure 110/75 O2 Sat by Pulse 97 Oximetry Medical Decision Making - Medical Decision Making Was pt. sent in by a medical professional or institution (, [facility], [facility], urgent care, hospital, or assisted...) When possible be specific @ -No Did you speak to anyone other than the patient for history (EMS, parent, family, police, friend...)? What history was obtained from this source @ -No Did you review nursing and triage notes (agree or disagree)? Why? @ -I reviewed and agree with nursing and triage notes Were old charts reviewed (outside hosp., previous admission, EMS record, old EKG, old radiological studies, urgent care reports/EKG's, assisted records)? Report findings @ -No old charts were reviewed Differential Diagnosis (chest pain, altered mental status, abdominal pain women, abdominal pain men, vaginal bleeding, weakness, fever, dyspnea, syncope, headache, dizziness, GI bleed, back pain, seizure, CVA, palpatations, mental h ealth, musculoskeletal)? @ -nDifferential Musculoskeletal Muscular strain, contusion, ligament sprain, fracture, arthritis, septic arthritis, bursitis, cellulitis, muscle spasm, nerve compression, DVT, arterial occlusion, herpes zoster, electrolyte abnormality, tumor.... This is not meant to be in all inclusive listble EKG interpreted by me (3pts min.). @ -None X-rays interpreted by me (1pt min.). @ -X-ray of left shoulder shows mild arthritis in the AC joint. There is no fractures or dislocations noted. CT interpreted by me (1pt min.). @ -None done U/S interpreted by me (1pt. min.). @ -None done What testing was considered but not performed or refused? (CT, X-rays, U/S, labs)? Why? @ -None What meds were considered but not given or refused? Why? @ -None Did you discuss the management of the patient with other professionals (professionals i.e. , PA, [employer], lab, RT, psych nurse, web content & social media manager, credit risk management director, teacher, records officer, caseworker)? Give summary @ -No Was smoking cessation discussed for >3mins.? @ -No Was critical care preformed (if so, how long)? @ -No Were there social determinants of health that impacted care today? How? (Homelessness, low income, unemployed, alcoholism, drug addiction, tr ansportation, low edu. Level, literacy, decrease access to med. care, shelter, rehab)? @ -No Was there de-escalation of care discussed even if they declined (Discuss DNR or withdrawal of care, Hospice)? DNR status @ -No What co-morbidities impacted this encounter? (DM, HTN, Smoking, COPD, CAD, Cancer, CVA, ARF, Chemo, Hep., AIDS, mental health diagnosis, sleep apnea, morbid obesity)? @ -None Was patient admitted / discharged? Hospital course, mention meds given and route, prescriptions, significant lab abnormalities, going to OR and other pertinent info. @ -Discharge. Upon examination patient had very limited range of motion of his left shoulder. X-ray of left shoulder shows mild arthritis of the AC joint there is no fractures or dislocations noted. Patient advised to take [id number] Tylenol and Motrin for pain control. Patient will be discharged with follow-up to PCP and orthopedics. Patient also advised heat and ice with continued movement of this arm. Patient expressed understanding and agreement of care plan. Undiagnosed new problem with uncertain prognosis? @ -No Drug Therapy requiring intensive monitoring for toxicity (Heparin, Nitro, Insulin, Cardizem)? @ -No Were any procedures done? @ -No Diagnosis/symptom? @ -Left shoulder pain Acute, or Chronic, or Acute on Chronic? @ -Acute Uncomplicated (without systemic symptoms) or Complicated (systemic symptoms)? @ -Uncomplicated Side effects of treatment? @ -No Exacerbation, Progression, or Severe Exacerbation? @ -No Poses a threat to life or bodily function? How? (Chest pain, [place], [place], pneumonia, PE, COPD, DKA, ARF, appy, cholecystitis, CVA, Diverticulitis, Homicidal, Suicidal, threat to staff... and all critical care pts) @ -No - Radiology Data Radiology results: report reviewed, image reviewed Disposition Clinical Impression: Shoulder pain, left Disposition: HOME SELF-CARE Condition: Stable Instructions (If sedation given, give patient instructions): Shoulder Pain (ED) Additional Instructions: Please return to the Emergency Department if symptoms worsen or any other concerns. Please follow-up with your orthopedic surgeon and PCP as soon as possible. Is patient prescribed a controlled substance at d/c from ED?: No Referrals: Bharti Amin DO [Primary Care Provider] - 1-2 days Time of Disposition: 15:22
[2023-05-06 15:41] VITALS: RESP 16
== END 2023-05-06 15:28 | disposition home or self-care (01) ==
LOC: EC 13:50
DX: M19.012 Primary osteoarthritis, left shoulder (principal); E11.9 Type 2 diabetes mellitus without complications; I10 Essential (primary) hypertension; K21.9 Gastro-esophageal reflux disease without esophagitis; F32.A Depression, unspecified; Z79.84 Long term (current) use of oral hypoglycemic drugs; Z79.82 Long term (current) use of aspirin; Z79.899 Other long term (current) drug therapy; Z88.5 Allergy status to narcotic agent; Z91.030 Bee allergy status; W01.0XXA Fall on same level from slipping, tripping and stumbling without subsequent striking against object, initial encounter
CPT/HCPCS: 99283

== ENCOUNTER → 2023-09-20 | Outpatient (CLI) | payer BC ==
[2023-09-20 18:38] LABS: Chol/HDL Ratio 3.52 Ratio; LDL Cholesterol,Calculated 67.6 mg/dL (0.0-131.0)
[2023-09-21 04:00] LABS: B/A1 Ratio 0.59 Ratio (0.35 - 1.00)
== END | disposition home or self-care (01) ==
LOC: LABWHC1 11:46
PROVIDERS: ATTEND Internal Medicine
DX: I25.10 Atherosclerotic heart disease of native coronary artery without angina pectoris (principal); E78.5 Hyperlipidemia, unspecified
CPT/HCPCS: 36415; 80061; 82172; 83695

== ENCOUNTER 2023-10-04 08:56 | Inpatient (IN) | payer BC ==
[2023-10-04] MEDS: SODIUM CHLORIDE 0.9% 1,000 ML IV STA (09:28)
[2023-10-04 09:47] LABS: Basophils % (A) 1 %; Eosinophils # (A) 0.1 k/uL (0-0.7); Eosinophils % (A) 2 %; HCT 46.6 % (39.0-53.0); HGB 15.1 gm/dL (13.0-17.5); Hypochromasia Slight; Lymphocytes # (A) 1.8 k/uL (1.0-4.8); Lymphocytes % (A) 28 %; MCH 29.3 pg (25.0-35.0); MCHC 32.4 g/dL (31.0-37.0); MCV 90.5 fL (80.0-100.0); Mean Platelet Volume 8.2; Monocytes # (A) 0.5 k/uL (0-1.0); Monocytes % (A) 8 %; Neutrophils # (A) 3.8 k/uL (1.3-7.7); Neutrophils % (A) 59 %; Platelet Count 210 k/uL (150-450); RBC 5.15 m/uL (4.30-5.90); RDW 14.3 % (11.5-15.5); WBC 6.5 k/uL (3.8-10.6)
[2023-10-04 09:52] LABS: ALT 26 U/L (4-49); AST 24 U/L (17-59); African American GFR (CKD) >90 (>60 ml/min/1.73 sqM); Albumin 3.9 g/dL (3.5-5.0); Alkaline Phosphatase 79 U/L (38-126); Anion Gap 13 mmol/L; Blood Urea Nitrogen 19 mg/dL (9-20); Calcium 9.1 mg/dL (8.4-10.2); Carbon Dioxide 18 mmol/L (22-30); Chloride 110 mmol/L (98-107); Glucose 271 mg/dL (74-99); Magnesium 1.9 mg/dL (1.6-2.3); Non-African American GFR(CKD) >90 (>60 ml/min/1.73 sqM); Phosphorus 3.3 mg/dL (2.5-4.5); Potassium 4.2 mmol/L (3.5-5.1); Sodium 141 mmol/L (137-145); Total Bilirubin 0.5 mg/dL (0.2-1.3); Total Protein 6.3 g/dL (6.3-8.2)
--- NOTE | 2023-10-04 09:53 | ED ---
Arrhythmia/Palpitations HPI - General Chief Complaint: Arrhythmia/Palpitations Stated Complaint: High Heart Rate Time Seen by Provider: 10/04/23 09:08 Source: patient, RN notes reviewed, old records reviewed Mode of arrival: ambulatory Limitations: no limitations - History of Present Illness Initial Comments: This is a 58-year-old male to the ER for evaluation today. Patient coming in for elevated heart rate history of atrial fibrillation. Patient feels like his heart is racing here in the emergency department with no shortness of breath symptoms have been going on for a few days now progressively worsening. History of A-fib with no treatment. MD Complaint: rapid heart beat, "heart racing", "skipped beats", palpitations, irregular heart beat, atrial fibrillation -: days(s) Arrhythmia History: atrial fibrillation Associated Symptoms: chest pain, shortness of breath, anxiety Treatments Prior to Arrival: other (0) - Related Data Home Medications Medication Instructions Recorded Confirmed Citalopram Hydrobromide 40 mg PO HS 09/11/16 10/04/23 [Citalopram HBr] Aspirin 81 mg PO HS 06/04/21 10/04/23 Empagliflozin [Jardiance] 25 mg PO DAILY 02/24/22 10/04/23 RABEprazole SODIUM 20 mg PO DAILY 02/24/22 10/04/23 Montelukast [Singulair] 10 mg PO DAILY PRN 07/27/22 10/04/23 Semaglutide [Ozempic] 1 mg SQ LAZO 07/27/22 10/04/23 Meloxicam [Mobic] 7.5 mg PO DAILY 10/04/23 10/04/23 Spironolactone [Aldactone] 25 mg PO HS 10/04/23 10/04/23 Testosterone [Androgel 1.62%] 4 pump TRANSDERM DAILY 10/04/23 10/04/23 busPIRone HCl [Buspar] 10 mg PO BID 10/04/23 10/04/23 metFORMIN HCL ER [Glucophage XR] 1,000 mg PO BID 10/04/23 10/04/23 Previous Rx's Medication Instructions Recorded Atorvastatin [Lipitor] 40 mg PO HS #30 tab 07/28/22 Apixaban [Eliquis] 5 mg PO BID 30 Days #60 tab 10/07/23 Metoprolol Tartrate [Lopressor] 25 mg PO BID 30 Days #60 tab 10/07/23 Allergies Allergy/AdvReac Type Severity Reaction Status Date / Time codeine Allergy Swelling Verified 10/04/23 12:47 scrotum oxycodone HCl [From Percocet] Allergy Anaphylaxis Verified 10/04/23 12:47 venom-honey bee Allergy Anaphylaxis Verified 10/04/23 12:47 [bee venom (honey bee)] hydrochlorothiazide AdvReac LEG CRAMPS Verified 10/04/23 12:47 Review of Systems ROS Statement: Those systems with pertinent positive or pertinent negative responses have been documented in the HPI. ROS Other: All systems not noted in ROS Statement are negative. Past Medical History Past Medical History: Chest Pain / Angina, Diabetes Mellitus, GERD/Reflux, Hypertension, Sleep Apnea/CPAP/BIPAP Additional Past Medical History / Comment(s): kidney stone. History of Any Multi-Drug Resistant Organisms: None Reported Past Surgical History: Heart Catheterization With Stent, Orthopedic Surgery Additional Past Surgical History / Comment(s): FASCIOTOMY BILAT HANDS, LT FOOT SURGERY, MUSCLE BIOPSY RT LEG, right shoulder arthroscopy Past Anesthesia/Blood Transfusion Reactions: No Reported Reaction Date of Last Stent Placement:: jan 2017 Past Psychological History: Depression Smoking Status: Never smoker Past Alcohol Use History: None Reported Past Drug Use History: None Reported - Past Family History Father Family Medical History: Coronary Artery Disease (CAD), Diabetes Mellitus, Prostate Disorder Additional Family Medical History / Comment(s): st. caths at home Sister(s) Family Medical History: Diabetes Mellitus Mother Family Medical History: Cancer, COPD, Fibromyalgia Additional Family Medical History / Comment(s): Bladder Cancer. General Exam Limitations: no limitations General appearance: alert, in no apparent distress, anxious Head exam: Present: atraumatic, normocephalic, normal inspection Eye exam: Present: normal appearance, PERRL, EOMI. Absent: scleral icterus, co njunctival injection, periorbital swelling ENT exam: Present: normal exam, mucous membranes moist Neck exam: Present: normal inspection. Absent: tenderness, meningismus, lymphadenopathy Respiratory exam: Present: normal lung sounds bilaterally. Absent: respiratory distress, wheezes, rales, rhonchi, stridor Cardiovascular Exam: Present: tachycardia, irregular rhythm, normal heart sounds. Absent: systolic murmur, diastolic murmur, rubs, gallop, clicks GI/Abdominal exam: Present: soft, normal bowel sounds. Absent: distended, tenderness, guarding, rebound, rigid Extremities exam: Present: normal inspection, full ROM, normal capillary refill. Absent: tenderness, pedal edema, joint swelling, calf tenderness Back exam: Present: normal inspection Neurological exam: Present: alert, oriented X3, CN II-XII intact Psychiatric exam: Present: normal affect, normal mood Skin exam: Present: warm, dry, intact, normal color. Absent: rash Course Vital Signs 10/04/23 10/04/23 10/04/23 09:04 09:36 10:00 Temperature 98.1 F Pulse Rate 127 H 111 H Pulse Rate [ 132 H Front Elevator Operator ] Respiratory 20 14 Rate Blood Pressure 116/79 101/88 O2 Sat by Pulse 97 93 L Oximetry 10/04/23 10/04/23 10/04/23 10:15 10:49 11:00 Temperature Pulse Rate 114 H 108 H 104 H Pulse Rate [ Front Elevator Operator ] Respiratory 18 18 9 L Rate Blood Pressure 118/82 100/74 O2 Sat by Pulse 94 L 96 95 Oximetry 10/04/23 10/04/23 10/04/23 13:53 15:15 17:38 Temperature Pulse Rate 98 87 90 Pulse Rate [ Front Elevator Operator ] Respiratory 18 16 16 Rate Blood Pressure 121/69 104/83 118/78 O2 Sat by Pulse 95 95 95 Oximetry 10/04/23 10/04/23 10/04/23 19:35 21:00 22:00 Temperature Pulse Rate 85 90 88 Pulse Rate [ Front Elevator Operator ] Respiratory 18 18 19 Rate Blood Pressure 121/76 123/76 121/84 O2 Sat by Pulse 96 93 L 95 Oximetry 10/05/23 10/05/23 10/05/23 00:40 02:00 03:16 Temperature Pulse Rate 84 84 84 Pulse Rate [ Front Elevator Operator ] Respiratory 16 18 19 Rate Blood Pressure 113/79 109/78 118/85 O2 Sat by Pulse 93 L 94 L 94 L Oximetry 10/05/23 10/05/23 10/05/23 04:16 05:16 06:00 Temperature Pulse Rate 82 92 87 Pulse Rate [ Front Elevator Operator ] Respiratory 18 18 18 Rate Blood Pressure 110/93 128/84 110/84 O2 Sat by Pulse 95 95 95 Oximetry 04/03/2110/05/23 10/05/23 07:29 08:03 09:01 Temperature 97.7 F Pulse Rate 85 89 91 Pulse Rate [ Front Elevator Operator ] Respiratory 17 18 17 Rate Blood Pressure 117/88 120/71 122/84 O2 Sat by Pulse 95 95 95 Oximetry 10/05/23 10/05/23 10/05/23 10:01 11:08 12:02 Temperature 97.9 F Pulse Rate 78 83 84 Pulse Rate [ Front Elevator Operator ] Respiratory 17 17 18 Rate Blood Pressure 122/82 112/80 113/86 O2 Sat by Pulse 94 L 95 95 Oximetry 10/05/23 10/05/23 10/05/23 13:00 15:00 15:55 Temperature Pulse Rate 67 95 95 Pulse Rate [ Front Elevator Operator ] Respiratory 18 14 14 Rate Blood Pressure 109/83 137/96 137/96 O2 Sat by Pulse 95 94 L 94 L Oximetry 10/05/23 19:00 Temperature Pulse Rate 109 H Pulse Rate [ Front Elevator Operator ] Respiratory 16 Rate Blood Pressure 137/85 O2 Sat by Pulse 97 Oximetry - Reevaluation(s) Reevaluation #1: 10/04/23 12:38 Medical record is reviewed Reevaluation #2: 10/04/23 12:38 Patient symptoms are improving Reevaluation #3: 10/04/23 12:38 Patient informed of results questions answered Reevaluation #4: Was pt. sent in by a medical professional or institution (, ALEJANDRO, SENIOR CYBER SECURITY ANALYST, urgent care, hospital, or prison...) When possible be specific @ -no Did you speak to anyone other than the patient for history (EMS, parent, family, police, friend...)? What history was obtained from this source @ -no Did you review nursing and triage notes (agree or disagree)? Why? @ -agree Are old charts reviewed (outside hosp., previous admission, EMS record, old EKG, old radiological studies, urgent care reports/EKG's, prison records)? Report findings @ -yes Differential Diagnosis (chest pain, altered mental status, abdominal pain women, abdominal pain men, vaginal bleeding, weakness, fever, dyspnea, syncope, headache, dizziness, GI bleed, back pain, seizure, CVA, palpatations, mental health, musculoskeletal)? @ -prior EKG interpreted by me (3pts min.). @ -yes X-rays interpreted by me (1pt min.). @ -no CT interpreted by me (1pt min.). @ -no U/S interpreted by me (1pt. min.). @ -no What testing was considered but not performed or refused? (CT, X-rays, U/S, labs)? Why? @ -none What meds were considered but not given or refused? Why? @ -none Did you discuss the management of the patient with other professionals (professionals i.e. DrMahesh, PA, SENIOR CYBER SECURITY ANALYST, lab, RT, psych nurse, sexual assault social worker, pillowcase cutter, teacher, nuclear medicine officer, hospice case manager)? Give summary @ -no Was smoking cessation discussed for >3mins.? @ -no Was critical care preformed (if so, how long)? @ -yes31 Were there social determinants of health that impacted care today? How? (Ho melessness, low income, unemployed, alcoholism, drug addiction, transportation, low edu. Level, literacy, decrease access to med. care, residential, rehab)? @ -none Was there de-escalation of care discussed even if they declined (Discuss DNR or withdrawal of care, Hospice)? DNR status @ -no What co-morbidities impacted this encounter? (DM, HTN, Smoking, COPD, CAD, Cancer, CVA, ARF, Chemo, Hep., AIDS, mental health diagnosis, sleep apnea, morbid obesity)? @ -none Was patient admitted / discharged? Hospital course, mention meds given and route, prescriptions, significant lab abnormalities, going to OR and other pertinent info. @ - 58 male to the ER for evaluation of severe atrial fibrillation with RVR. New onset to this patient with no current treatment. Patient admitted for rate control and anticoagulation and admission for cardiology evaluation Undiagnosed new problem with uncertain prognosis? @ -no Drug Therapy requiring intensive monitoring for toxicity (Heparin, Nitro, Insulin, Cardizem)? @ -no Were any procedures done? @ -no Diagnosis/symptom? @ -New onset atrial fibrillation with RVR Acute, or Chronic, or Acute on Chronic? @ -Acute Uncomplicated (without systemic symptoms) or Complicated (systemic symptoms)? @ -Complicated Side effects of treatment? @ -no Exacerbation, Progression, or Severe Exacerbation? @ -exacerbation Poses a threat to life or bodily function? How? (Chest pain, [place], MT, pneumonia, PE, COPD, DKA, ARF, appy, cholecystitis, CVA, Diverticulitis, Homicidal, Suicidal, threat to staff... and all critical care pts) @ -yes new onset arrhythmia Reevaluation #5: Differential Palpitations Ventricular arrhythmias, atrial arrhythmias, myocardial infarction, anemia, thyrotoxicosis, electrolyte imbalance, hypokalemia, pulmonary embolism, pulmonary disease, drugs, alcohol, anxiety, stress.... This is not meant to be an all-inclusive list. - Consultations Consultation #1: Spoke with [facility] who agrees to admit the patient EKG Findings - EKG Comments: EKG Findings:: EKG A-fib 129 QRS 96 QTc 385 - EKG Results: EKG: interpreted by SIMIN Medical Decision Making - Medical Decision Making 58 male to the ER for evaluation of severe atrial fibrillation with RVR. New onset to this patient with no current treatment. Patient admitted for rate control and anticoagulation and admission for cardiology evaluation - Lab Data Result diagrams: 10/05/23 09:37 10/05/23 09:37 Lab Results 10/04/23 10/04/23 10/04/23 Range/Units 09:29 09:29 09:29 WBC 6.5 (3.8-10.6) k/uL RBC 5.15 (4.30-5.90) m/uL Hgb 15.1 (13.0-17.5) gm/dL Hct 46.6 (39.0-53.0) % MCV 90.5 (80.0-100.0) fL MCH 29.3 (25.0-35.0) pg MCHC 32.4 (31.0-37.0) g/dL RDW 14.3 (11.5-15.5) % Plt Count 210 (150-450) k/uL MPV 8.2 Neutrophils % 59 % Lymphocytes % 28 % Monocytes % 8 % Eosinophils % 2 % Basophils % 1 % Neutrophils # 3.8 (1.3-7.7) k/uL Lymphocytes # 1.8 (1.0-4.8) k/uL Monocytes # 0.5 (0-1.0) k/uL Eosinophils # 0.1 (0-0.7) k/uL Basophils # 0.0 (0-0.2) k/uL Hypochromasia Slight PT 10.1 (10.0-12.5) sec INR 0.9 (<1.2) APTT 23.8 (22.0-30.0) sec Sodium 141 (137-145) mmol/L Potassium 4.2 (3.5-5.1) mmol/L Chloride 110 H (98-107) mmol/L Carbon Dioxide 18 L (22-30) mmol/L Anion Gap 13 mmol/L BUN 19 (9-20) mg/dL Creatinine 0.69 (0.66-1.25) mg/dL Est GFR (CKD-EPI)AfAm >90 (>60 ml/min/1.73 sqM) Est GFR (CKD-EPI)NonAf >90 (>60 ml/min/1.73 sqM) Glucose 271 H (74-99) mg/dL Calcium 9.1 (8.4-10.2) mg/dL Phosphorus 3.3 (2.5-4.5) mg/dL Magnesium 1.9 (1.6-2.3) mg/dL Total Bilirubin 0.5 (0.2-1.3) mg/dL AST 24 (17-59) U/L ALT 26 (4-49) U/L Alkaline Phosphatase 79 (38-126) U/L Troponin I (0.000-0.034) ng/mL NT-Pro-B Natriuret Pep 1950 pg/mL Total Protein 6.3 (6.3-8.2) g/dL Albumin 3.9 (3.5-5.0) g/dL TSH 0.391 L (0.465-4.680) mIU/L Free T4 (0.78-2.19) ng/dL 10/04/23 10/04/23 Range/Units 09:29 09:29 WBC (3.8-10.6) k/uL RBC (4.30-5.90) m/uL Hgb (13.0-17.5) gm/dL Hct (39.0-53.0) % MCV (80.0-100.0) fL MCH (25.0-35.0) pg MCHC (31.0-37.0) g/dL RDW (11.5-15.5) % Plt Count (150-450) k/uL MPV Neutrophils % % Lymphocytes % % Monocytes % % Eosinophils % % Basophils % % Neutrophils # (1.3-7.7) k/uL Lymphocytes # (1.0-4.8) k/uL Monocytes # (0-1.0) k/uL Eosinophils # (0-0.7) k/uL Basophils # (0-0.2) k/uL Hypochromasia PT (10.0-12.5) sec INR (<1.2) APTT (22.0-30.0) sec Sodium (137-145) mmol/L Potassium (3.5-5.1) mmol/L Chloride (98-107) mmol/L Carbon Dioxide (22-30) mmol/L Anion Gap mmol/L BUN (9-20) mg/dL Creatinine (0.66-1.25) mg/dL Est GFR (CKD-EPI)AfAm (>60 ml/min/1.73 sqM) Est GFR (CKD-EPI)NonAf (>60 ml/min/1.73 sqM) Glucose (74-99) mg/dL Calcium (8.4-10.2) mg/dL Phosphorus (2.5-4.5) mg/dL Magnesium (1.6-2.3) mg/dL Total Bilirubin (0.2-1.3) mg/dL AST (17-59) U/L ALT (4-49) U/L Alkaline Phosphatase (38-126) U/L Troponin I <0.012 (0.000-0.034) ng/mL NT-Pro-B Natriuret Pep pg/mL Total Protein (6.3-8.2) g/dL Albumin (3.5-5.0) g/dL TSH (0.465-4.680) mIU/L Free T4 1.04 (0.78-2.19) ng/dL Critical Care Time Critical Care Time: Yes Total Critical Care Time: 31 Disposition Clinical Impression: HTN (hypertension), Diabetes, Dizziness, Atrial fibrillation, Palpitations, At rial fibrillation with rapid ventricular response Disposition: ADMITTED IP TO THIS [facility] Condition: Fair Is patient prescribed a controlled substance at d/c from ED?: No Time of Disposition: 11:45
[2023-10-04 10:01] LABS: NT-Pro-B-Type Natriuretic Pept 1950 pg/mL
[2023-10-04 10:45] LABS: INR 0.9 (<1.2); Partial Thromboplastin Time 23.8 sec (22.0-30.0); Prothrombin Time 10.1 sec (10.0-12.5)
[2023-10-04] MEDS: DILTIAZEM DRIP BOLUS FROM BAG 1 MG SOLN IV ONE (10:53)
[2023-10-04] MEDS: DILTIAZEM 125 MG in SODIUM CHLORIDE 0.9% 100 ML IV SCH (10:56)
[2023-10-04] MEDS ORDERED: NALOXONE 0.4 MG/ML 1 ML VIAL IV PRN (11:46)
[2023-10-04] MEDS ORDERED: MORPHINE SULFATE 4 MG/ML SYRINGE IV PRN (11:46)
[2023-10-04] MEDS ORDERED: ONDANSETRON 4 MG/2 ML VIAL IVP PRN (11:46)
[2023-10-04] MEDS: HEPARIN SOD,PORK IN 0.45% NACL 25,000 UNIT in 0.45% NACL 1 250ML.BAG IV SCH (12:16)
[2023-10-04] MEDS: HEPARIN SODIUM 1,000 UN/ML (10ML VL) IV ONE (12:20)
[2023-10-04] MEDS: SODIUM CHLORIDE 0.9% 1,000 ML IV SCH (12:23)
[2023-10-04] MEDS ORDERED: MONTELUKAST 10 MG TAB PO PRN (13:55)
[2023-10-04] MEDS ORDERED: DEXTROSE 50% SYRINGE 50 ML IVP PRN ×2 (13:56)
[2023-10-04 17:44] LABS: Glucose,Whole Blood 208 mg/dL (70-110)
[2023-10-04] MEDS: INSULIN ASPART (NovoLOG) 100 UNIT/ML VIAL SQ SCH (17:50)
[2023-10-04] MEDS: HEPARIN SODIUM 1,000 UN/ML (10ML VL) IV PRN (19:12)
[2023-10-04 20:10] LABS: Glucose,Whole Blood 220 mg/dL (70-110)
[2023-10-04] MEDS: ATORVASTATIN 40 MG TAB PO SCH (20:18)
[2023-10-04] MEDS: busPIRone HCl 10 MG TAB PO SCH (20:18)
--- NOTE | 2023-10-05 00:19 | P.HPIM ---
History of Present Illness H&P Date: 10/04/23 Chief Complaint: Palpitations Patient is a 58-year-old male with a past medical history of hypertension, diabetes type 2 [id number] on Ozempic, GERD, obstructive sleep apnea, coronary artery disease with history of stent placement in January 2017, depression presents to ER with complaints of increased heart rate/palpitations. Patient states her she has prior history of atrial fibrillation. Patient has been having increased heart rate since Wednesday and has been on and off. Patient had symptoms on Wednesday as well. Patient went to work this morning and started having symptoms again. He drove himself to the ER. Denies any complaints of chest pain or shortness of breath. Denies any recent illnesses. No leg swelling. No nausea vomiting abdominal pain or diarrhea. No cough or sputum production. On admission heart rate 127 respiration 20 pulse ox 97% on room air. Laboratory data showed WBC 6.5 hemoglobin 15.1 and platelets 210. Sodium 141 potassium 4.2 chloride 110 bicarb is 18 BUN 19 and creatinine 0.69 blood sugar 271. Liver radiographs are not elevated. Troponin x 3 negative, proBNP 1950 TSH 0.391 and free T4 level within normal limits at 1.04 Review of Systems Constitutional: Patient denies any fever or chills . No generalized weakness or weight loss. Abdomen: Patient denied nausea vomiting and diarrhea and abdominal pain. Cardiovascular: Patient denies any chest pain or short of breath. Positive for palpitations. Respiratory: patient denied any cough is from production. No shortness of breath Neurologic: Patient denied any numbness or tingling headache. Musculoskeletal: Patient denies any complaints of joint swelling or deformity. Skin: Negative Psychiatric: Negative Endocrine: No heat or cold intolerance. No recent weight gain. Genitourinary: No dysuria or hematuria. All other 14 point ROS negative except the above Past Medical History Past Medical History: Chest Pain / Angina, Diabetes Mellitus, GERD/Reflux, Hypertension, Sleep Apnea/CPAP/BIPAP Additional Past Medical History / Comment(s): kidney stone. History of Any Multi-Drug Resistant Organisms: None Reported Past Surgical History: Heart Catheterization With Stent, Orthopedic Surgery Additional Past Surgical History / Comment(s): FASCIOTOMY BILAT HANDS, LT FOOT SURGERY, MUSCLE BIOPSY RT LEG, right shoulder arthroscopy Past Anesthesia/Blood Transfusion Reactions: No Reported Reaction Date of Last Stent Placement:: jan 2017 Past Psychological History: Depression Smoking Status: Never smoker Past Alcohol Use History: None Reported Past Drug Use History: None Reported - Past Family History Father Family Medical History: Coronary Artery Disease (CAD), Diabetes Mellitus, Prostate Disorder Additional Family Medical History / Comment(s): st. caths at home Sister(s) Family Medical History: Diabetes Mellitus Mother Family Medical History: Cancer, COPD, Fibromyalgia Additional Family Medical History / Comment(s): Bladder Cancer. Medications and Allergies Home Medications Medication Instructions Recorded Confirmed Type amLODIPine BESYLATE [Norvasc] 10 mg PO DAILY 02/14/14 10/04/23 History Citalopram Hydrobromide 40 mg PO HS 09/11/16 10/04/23 History [Citalopram HBr] Aspirin 81 mg PO HS 06/04/21 10/04/23 History Empagliflozin [Jardiance] 25 mg PO DAILY 02/24/22 10/04/23 History RABEprazole SODIUM 20 mg PO DAILY 02/24/22 10/04/23 History Montelukast [Singulair] 10 mg PO DAILY PRN 07/27/22 10/04/23 History Semaglutide [Ozempic] 1 mg SQ LAZO 07/27/22 10/04/23 History Atorvastatin [Lipitor] 40 mg PO HS #30 tab 07/28/22 10/04/23 Rx lisinopriL [Zestril] 20 mg PO BID #60 tab 07/28/22 10/04/23 Rx Meloxicam [Mobic] 7.5 mg PO DAILY 10/04/23 10/04/23 History Spironolactone [Aldactone] 25 mg PO HS 10/04/23 10/04/23 History Testosterone [Androgel 1.62%] 4 pump TRANSDERM DAILY 10/04/23 10/04/23 History busPIRone HCl [Buspar] 10 mg PO BID 10/04/23 10/04/23 History metFORMIN HCL ER [Glucophage XR] 1,000 mg PO BID 10/04/23 10/04/23 History Allergies Allergy/AdvReac Type Severity Reaction Status Date / Time codeine Allergy Swelling Verified 10/04/23 12:47 scrotum oxycodone HCl [From Percocet] Allergy Anaphylaxis Verified 10/04/23 12:47 venom-honey bee Allergy Anaphylaxis Verified 10/04/23 12:47 [bee venom (honey bee)] hydrochlorothiazide AdvReac LEG CRAMPS Verified 10/04/23 12:47 Physical Exam Vitals: Vital Signs Temp Pulse Pulse Resp BP Pulse Ox 10/04/23 13:53 98 18 121/69 95 10/04/23 11:00 104 H 9 L 100/74 95 10/04/23 10:49 108 H 18 118/82 96 10/04/23 10:15 114 H 18 94 L 10/04/23 10:00 111 H 14 101/88 93 L 10/04/23 09:36 132 H 10/04/23 09:04 98.1 F 127 H 20 116/79 97 Intake and Output 10/03/23 10/04/23 10/04/23 22:59 06:59 14:59 Other: Weight 111.13 kg PHYSICAL EXAMINATION: Patient is lying in the bed comfortably, no acute distress, awake alert and erik ented.. HEENT: Normocephalic. Neck is supple. Pupils reactive. Nostrils clear. Oral cavity is moist. Neck reveals no JVD, carotid bruits, or thyromegaly. CHEST EXAMINATION: Trachea is central. Symmetrical expansion. Lung moise clear to auscultation and percussion. CARDIAC: Normal S1, S2 with no gallops. No murmurs. Irregularly irregular rhythm. ABDOMEN: Soft. Bowel sounds normal. No organomegaly. No abdominal bruits. Extremities: reveal no edema. No clubbing or cyanosis Neurologically awake, alert, oriented x3 with well-coordinated movements. No focal deficits noted Skin: No rash or skin lesions. Psychiatric: Coperative. Nonsuicidal Musculoskeletal: No joint swelling or deformity. Normal range of motion. Results CBC & Chem 7: 10/04/23 09:29 10/04/23 09:29 Labs: Abnormal Lab Results - Last 24 Hours (Table) 10/04/23 Range/Units 09:29 Chloride 110 H (98-107) mmol/L Carbon Dioxide 18 L (22-30) mmol/L Glucose 271 H (74-99) mg/dL TSH 0.391 L (0.465-4.680) mIU/L Thrombosis Risk Factor Assmnt - DVT/VTE Prophylaxis DVT/VTE Prophylaxis: Pharmacologic Prophylaxis ordered Assessment and Plan Assessment: Atrial fibrillation with rapid ventricular rate Coronary artery disease with history of stent placement in 2017 Hyperglycemia with uncontrolled diabetes type 2 [id number] Obstructive sleep apnea GERD Anxiety/depression GI prophylaxis patient is on PPI Plan: Patient will be continued on telemetry monitoring. Started on a Cardizem drip for heart rate control. Patient was also started on heparin drip. Patient is on aspirin, Norvasc and lisinopril at home. Continue with insulin sliding scale for better blood sugar control. Follow-up A1c level. Oral hypoglycemics on hold. Patient is also on Ozempic at home. Patient does have low TSH level but free T4 level within normal limits. Cardiology was consulted for further evaluation. Follow-up closely. Discussed with the patient and his at bedside in detail. Time with Patient: Greater than 30
[2023-10-05 07:26] LABS: Glucose,Whole Blood 144 mg/dL (70-110)
[2023-10-05] MEDS: PANTOPRAZOLE 40 MG TABLET PO SCH (08:02)
--- NOTE | 2023-10-05 08:08 | XR ---
EXAMINATION TYPE: XR chest 1V DATE OF EXAM: 10/05/2023 COMPARISON: 07/04/2021 HISTORY: Heart palpitations TECHNIQUE: Single frontal view of the chest is obtained. FINDINGS: There is no focal air space opacity, pleural effusion, or pneumothorax seen. The cardiac silhouette size is mildly enlarged. The osseous structures are intact. Mild underlying COPD. Promin ence of the pulmonary arteries can be associated with pulmonary arterial hypertension. IMPRESSION: No acute process.
[2023-10-05] MEDS: APIXABAN 5 MG TAB PO SCH (08:34)
[2023-10-05] MEDS: METOPROLOL TARTRATE 25 MG TAB PO SCH (08:34)
[2023-10-05 09:57] LABS: Basophils # (A) 0.1 k/uL (0-0.2); Basophils % (A) 1 %; Eosinophils # (A) 0.2 k/uL (0-0.7); Eosinophils % (A) 3 %; HCT 44.1 % (39.0-53.0); HGB 13.8 gm/dL (13.0-17.5); Lymphocytes # (A) 1.7 k/uL (1.0-4.8); Lymphocytes % (A) 27 %; MCH 28.2 pg (25.0-35.0); MCHC 31.3 g/dL (31.0-37.0); MCV 90.2 fL (80.0-100.0); Mean Platelet Volume 7.8; Monocytes # (A) 0.4 k/uL (0-1.0); Monocytes % (A) 6 %; Neutrophils # (A) 3.9 k/uL (1.3-7.7); Neutrophils % (A) 61 %; Platelet Count 188 k/uL (150-450); RBC 4.89 m/uL (4.30-5.90); RDW 13.9 % (11.5-15.5); WBC 6.3 k/uL (3.8-10.6)
[2023-10-05 10:17] LABS: ALT 24 U/L (4-49); AST 21 U/L (17-59); African American GFR (CKD) >90 (>60 ml/min/1.73 sqM); Albumin 3.7 g/dL (3.5-5.0); Alkaline Phosphatase 79 U/L (38-126); Anion Gap 6 mmol/L; Blood Urea Nitrogen 15 mg/dL (9-20); Calcium 8.9 mg/dL (8.4-10.2); Carbon Dioxide 22 mmol/L (22-30); Chloride 111 mmol/L (98-107); Glucose 172 mg/dL (74-99); Magnesium 1.9 mg/dL (1.6-2.3); Non-African American GFR(CKD) >90 (>60 ml/min/1.73 sqM); Phosphorus 3.4 mg/dL (2.5-4.5); Potassium 3.9 mmol/L (3.5-5.1); Sodium 139 mmol/L (137-145); Total Bilirubin 0.6 mg/dL (0.2-1.3); Total Protein 5.9 g/dL (6.3-8.2)
[2023-10-05 12:13] LABS: Glucose,Whole Blood 157 mg/dL (70-110)
--- NOTE | 2023-10-05 13:05 | P.CRDCN ---
History of Present Illness Consult date: 10/05/23 Consult reason: atrial fibrillation (with rvr, new onset) History of present illness: History of present illness: This is a 58-year-old male patient of Dr. Jesus with past medical history of hypertension, hyperlipidemia, diabetes mellitus type 2, previous tobacco use, coronary artery disease with prior [place] and PCI of the RCA with preserved EF, likely bicuspid valve with mild aortic stenosis, aortic root dilatation, strong family history of premature coronary artery disease, obstructive sleep apnea with CPAP. We have been asked to evaluate the patient for new onset of A-fib with RVR. Patient states that he developed a fluttering sensation in his chest. He denies having any lightheadedness or dizziness, no chest pain, no syncopal episodes. Started on Wednesday afternoon about 1:00. He denies any alcohol use. He has been taking all of his medications as directed. Only new medication has been meloxicam about 1 month ago. He has been started on a Cardizem drip at 5 mg/h. His heart rate is currently controlled 80s to 90s. Patient is also been started on a heparin drip. Patient is seen today in the emergency center waiting for a bed on the cardiac stepdown unit. Dr. Aponte discussed options of electrocardioversion tomorrow if he remains in atrial fibrillation. Patient is agreeable. Patient was recently hospitalized in June of this year for hypertensive emergency. EKG atrial fibrillation with ventricular rate of 129 Chest x-ray: No acute process CBC within normal limits. Sodium 139, potassium 3.9, BUN 15 creatinine 0.68. Magnesium 1.9. Liver function tests are normal. TSH 0.654. Troponin negative x 3. Home cardiac medications: Amlodipine 10 mg daily, aspirin 81 mg at bedtime, atorvastatin 40 mg at bedtime, lisinopril 20 mg twice daily, spironolactone 25 mg at bedtime. Echocardiogram performed on 07/27/2022 revealed EF of 55 to 60%, aortic sclerosis with no stenosis or insufficiency. Review Of Systems: At the time of my exam: CONSTITUTIONAL: Denies fever or chills. HEENT: Denies blurred vision, vision changes, or eye pain. Denies hemoptysis CARDIOVASCULAR: Denies chest pain. Denies orthopnea. Denies PND. Denies palpitations RESPIRATORY: Denies shortness of breath. GASTROINTESTINAL: Denies abdominal pain. Denies nausea or vomiting. HEMATOLOGIC: Denies bleeding disorders. GENITOURINARY: Denies any blood in urine. SKIN: Denies pruitis. Denies rash. Physical examination: Gen: This is a 58-year-old male in no acute distress. VS: reviewed blood pressure 112/80, heart rate 83, pulse ox 95% on room air. HEENT: Head is atraumatic, normocephalic. Pupils equal, round. Sclerae is anicteric. NECK: Supple. No JVD. LUNGS: Clear to auscultation. No wheezes or rhonchi. No intercostal retra ctions. HEART: Irregular rate and rhythm. 2/6 systolic murmur. ABDOMEN: Soft No tenderness. EXTREMITIES: No pedal edema. Dorsalis pedis palpable bilaterally. NEUROLOGICAL: Patient is awake, alert and oriented x3. Assessment: New onset A-fib with RVR Hypertension Coronary artery disease status post PCI of the RCA in 2017 Hyperlipidemia Mild aortic stenosis likely bicuspid valve Mild aortic root dilatation Diabetes mellitus type 2 Family history of premature coronary artery disease Remote history of tobacco use Plan: Resume patient's home cardiac medications Start patient on Lopressor 25 mg twice daily and discontinue Cardizem drip this afternoon at 3 PM Start patient on Eliquis 5 mg twice daily and discontinue heparin drip in 5 hours Consider electrocardioversion and ETHAN tomorrow if patient remains in atrial fibrillation No need to repeat echocardiogram as this was done in June Further recommendations to follow based upon clinical course Thank you kindly for this consultation. Nurse practitioner note has been reviewed, I agree with documented findings and plan of care. Patient was seen and examined. Past Medical History Past Medical History: Chest Pain / Angina, Diabetes Mellitus, GERD/Reflux, Hypertension, Sleep Apnea/CPAP/BIPAP Additional Past Medical History / Comment(s): kidney stone. History of Any Multi-Drug Resistant Organisms: None Reported Past Surgical History: Heart Catheterization With Stent, Orthopedic Surgery Additional Past Surgical History / Comment(s): FASCIOTOMY BILAT HANDS, LT FOOT SURGERY, MUSCLE BIOPSY RT LEG, right shoulder arthroscopy Past Anesthesia/Blood Transfusion Reactions: No Reported Reaction Date of Last Stent Placement:: jan 2017 Past Psychological History: Depression Smoking Status: Never smoker Past Alcohol Use History: None Reported Past Drug Use History: None Reported - Past Family History Father Family Medical History: Coronary Artery Disease (CAD), Diabetes Mellitus, Pros huang Disorder Additional Family Medical History / Comment(s): st. caths at home Sister(s) Family Medical History: Diabetes Mellitus Mother Family Medical History: Cancer, COPD, Fibromyalgia Additional Family Medical History / Comment(s): Bladder Cancer. Medications and Allergies Home Medications Medication Instructions Recorded Confirmed Type amLODIPine BESYLATE [Norvasc] 10 mg PO DAILY 02/14/14 10/04/23 History Citalopram Hydrobromide 40 mg PO HS 09/11/16 10/04/23 History [Citalopram HBr] Aspirin 81 mg PO HS 06/04/21 10/04/23 History Empagliflozin [Jardiance] 25 mg PO DAILY 02/24/22 10/04/23 History RABEprazole SODIUM 20 mg PO DAILY 02/24/22 10/04/23 History Montelukast [Singulair] 10 mg PO DAILY PRN 07/27/22 10/04/23 History Semaglutide [Ozempic] 1 mg SQ LAZO 07/27/22 10/04/23 History Atorvastatin [Lipitor] 40 mg PO HS #30 tab 07/28/22 10/04/23 Rx lisinopriL [Zestril] 20 mg PO BID #60 tab 07/28/22 10/04/23 Rx Meloxicam [Mobic] 7.5 mg PO DAILY 10/04/23 10/04/23 History Spironolactone [Aldactone] 25 mg PO HS 10/04/23 10/04/23 History Testosterone [Androgel 1.62%] 4 pump TRANSDERM DAILY 10/04/23 10/04/23 History busPIRone HCl [Buspar] 10 mg PO BID 10/04/23 10/04/23 History metFORMIN HCL ER [Glucophage XR] 1,000 mg PO BID 10/04/23 10/04/23 History Allergies Allergy/AdvReac Type Severity Reaction Status Date / Time codeine Allergy Swelling Verified 10/04/23 12:47 scrotum oxycodone HCl [From Percocet] Allergy Anaphylaxis Verified 10/04/23 12:47 venom-honey bee Allergy Anaphylaxis Verified 10/04/23 12:47 [bee venom (honey bee)] hydrochlorothiazide AdvReac LEG CRAMPS Verified 10/04/23 12:47 Physical Exam Vitals: Vital Signs Temp Pulse Pulse Resp BP Pulse Ox 10/05/23 08:03 89 18 120/71 95 10/05/23 07:29 97.7 F 85 17 117/88 95 10/05/23 06:00 87 18 110/84 95 10/05/23 05:16 92 18 128/84 95 10/05/23 04:16 82 18 110/93 95 10/05/23 03:16 84 19 118/85 94 L 10/05/23 02:00 84 18 109/78 94 L 10/05/23 00:40 84 16 113/79 93 L 10/04/23 22:00 88 19 121/84 95 10/04/23 21:00 90 18 123/76 93 L 10/04/23 19:35 85 18 121/76 96 10/04/23 17:38 90 16 118/78 95 10/04/23 15:15 87 16 104/83 95 10/04/23 13:53 98 18 121/69 95 10/04/23 11:00 104 H 9 L 100/74 95 10/04/23 10:49 108 H 18 118/82 96 10/04/23 10:15 114 H 18 94 L 10/04/23 10:00 111 H 14 101/88 93 L 10/04/23 09:36 132 H 10/04/23 09:04 98.1 F 127 H 20 116/79 97 Intake and Output 10/04/23 10/05/23 10/05/23 22:59 06:59 14:59 Intake Total 68.5 237.675 30.333 Output Total 1000 1100 Balance -931.5 -862.325 30.333 Intake: Intake, IV Titration 68.5 237.675 30.333 Amount Diltiazem 125 mg In 71 30.333 Sodium Chloride 0.9% 100 ml @ 5 MG/HR 5 mls/hr IV .Q24H [facility] Rx#:[id number] Heparin Sod,Pork in 0.45% 68.5 166.675 NaCl 25,000 unit In 0.45 % NaCl 1 250ml.bag @ 8. 9984 UNITS/KG/HR 10 mls/ hr IV .Q24H [facility] Rx#: [id number] Output: Urine 1000 1100 Results 10/05/23 09:37 10/05/23 09:37 Cardiac Enzymes 10/04/23 10/04/23 10/04/23 Range/Units 09:29 09:29 12:28 AST 24 (17-59) U/L Troponin I <0.012 <0.012 (0.000-0.034) ng/mL 10/04/23 Range/Units 14:25 AST (17-59) U/L Troponin I <0.012 (0.000-0.034) ng/mL Coagulation 10/04/23 10/04/23 10/05/23 Range/Units 09:29 18:00 01:15 PT 10.1 (10.0-12.5) sec APTT 23.8 25.6 33.5 H (22.0-30.0) sec CBC 10/04/23 Range/Units 09:29 WBC 6.5 (3.8-10.6) k/uL RBC 5.15 (4.30-5.90) m/uL Hgb 15.1 (13.0-17.5) gm/dL Hct 46.6 (39.0-53.0) % Plt Count 210 (150-450) k/uL Comprehensive Metabolic Panel 10/04/23 Range/Units 09:29 Sodium 141 (137-145) mmol/L Potassium 4.2 (3.5-5.1) mmol/L Chloride 110 H (98-107) mmol/L Carbon Dioxide 18 L (22-30) mmol/L BUN 19 (9-20) mg/dL Creatinine 0.69 (0.66-1.25) mg/dL Glucose 271 H (74-99) mg/dL Calcium 9.1 (8.4-10.2) mg/dL AST 24 (17-59) U/L ALT 26 (4-49) U/L Alkaline Phosphatase 79 (38-126) U/L Total Protein 6.3 (6.3-8.2) g/dL Albumin 3.9 (3.5-5.0) g/dL Current Medications Generic Name Dose Route Start Last Admin Trade Name Freq PRN Reason Stop Dose Admin Atorvastatin Calcium 40 mg 10/04/23 21:00 10/04/23 20:18 Atorvastatin 40 Mg Tab PO 40 mg HS [facility] Administration Buspirone HCl 10 mg 10/04/23 21:00 10/05/23 08:02 Buspirone Hcl 10 Mg Tab PO 10 mg BID [facility] Administration Dextrose/Water 25 ml 10/04/23 13:56 Dextrose 50% Syringe 50 Ml IVP PER PROTOCOL PRN Hypoglycemia Protocol Dextrose/Water 50 ml 10/04/23 13:56 Dextrose 50% Syringe 50 Ml IVP PER PROTOCOL PRN Hypoglycemia Protocol Heparin Sodium (Porcine) 0 unit 10/04/23 11:46 10/05/23 01:54 Heparin Sodium 1,000 Un/Ml (10ml Vl) IV 4,000 unit PER PROTOCOL PRN Administration Low PTT Protocol Diltiazem HCl 125 mg/ Sodium 125 mls @ 5 mls/hr 10/04/23 10:00 10/05/23 07:12 Chloride IV 5 mg/hr .Q24H [facility] 5 mls/hr Administration 5 MG/HR Heparin Sodium/Sodium Chloride 250 mls @ 10 mls/hr 10/04/23 12:00 10/05/23 06:29 25,000 unit/ Sodium Chloride IV 14.99 units/kg/hr .Q24H [facility] 16.658 mls/hr Administration Protocol 8.9984 UNITS/KG/HR Sodium Chloride 1,000 mls @ 75 mls/hr 10/04/23 12:00 10/05/23 00:54 Saline 0.9% IV 75 mls/hr .[id number] [facility] Administration Insulin Aspart 0 unit 10/04/23 17:30 10/05/23 07:37 Insulin Aspart (Novolog) 100 Unit/Ml Vial SQ Not Given ACHS [facility] Protocol Montelukast Sodium 10 mg 10/04/23 13:55 Montelukast 10 Mg Tab PO DAILY PRN Allergy Symptoms Morphine Sulfate 4 mg 10/04/23 11:46 Morphine Sulfate 4 Mg/Ml Syringe IV Q4HR PRN Severe Pain (Scale 7 to 10) Naloxone HCl 0.2 mg 10/04/23 11:46 Naloxone 0.4 Mg/Ml 1 Ml Vial IV Q2M PRN Opioid Reversal Ondansetron HCl 4 mg 10/04/23 11:46 Ondansetron 4 Mg/2 Ml Vial IVP Q8HR PRN Nausea And Vomiting Pantoprazole Sodium 40 mg 10/05/23 09:00 10/05/23 08:02 Pantoprazole 40 Mg Tablet PO 40 mg DAILY [facility] Administration Intake and Output 10/04/23 10/05/23 10/05/23 22:59 06:59 14:59 Intake Total 68.5 237.675 30.333 Output Total 1000 1100 Balance -931.5 -862.325 30.333 Intake: Intake, IV Titration 68.5 237.675 30.333 Amount Diltiazem 125 mg In 71 30.333 Sodium Chloride 0.9% 100 ml @ 5 MG/HR 5 mls/hr IV .Q24H [facility] Rx#:[id number] Heparin Sod,Pork in 0.45% 68.5 166.675 NaCl 25,000 unit In 0.45 % NaCl 1 250ml.bag @ 8. 9984 UNITS/KG/HR 10 mls/ hr IV .Q24H [facility] Rx#: [id number] Output: Urine 1000 1100 10/04/23 09:29 10/04/23 09:29
[2023-10-05] MEDS: MELOXICAM 7.5 MG TAB PO SCH (14:50)
--- NOTE | 2023-10-05 15:46 | P.PN ---
Subjective Progress Note Date: 10/05/23 Patient is a 58-year-old male with a past medical history of hypertension, diabetes type 2 [id number] on Ozempic, GERD, obstructive sleep apnea, coronary artery disease with history of stent placement in January 2017, depression presents to ER with complaints of increased heart rate/palpitations. Patient states her she has prior history of atrial fibrillation. Patient has been having increased heart rate since Wednesday and has been on and off. Patient had symptoms on Wednesday as well. Patient went to work this morning and started having symptoms again. He drove himself to the ER. Denies any complaints of chest pain or shortness of breath. Denies any recent illnesses. No leg swelling. No nausea vomiting abdominal pain or diarrhea. No cough or sputum production. On admission heart rate 127 respiration 20 pulse ox 97% on room air. Laboratory data showed WBC 6.5 hemoglobin 15.1 and platelets 210. Sodium 141 potassium 4.2 chloride 110 bicarb is 18 BUN 19 and creatinine 0.69 blood sugar 271. Liver radiographs are not elevated. Troponin x 3 negative, proBNP 1950 TSH 0.391 and free T4 level within normal limits at 1.04 10/05/2023 Patient is seen and evaluated in follow-up this morning currently continues to be hold down in the emergency department awaiting a bed on stepdown as patient continues to be in atrial fibrillation with RVR which is new onset. Patient is continued on heparin and being transition to Eliquis per cardiology although continues on a Cardizem drip at 5/h. Metoprolol being added and monitored for and controlled heart rate. Continue with telemetry monitoring. Patient reports has a history of carpal tunnel and takes Mobic, will resume including other home medications. Patient is afebrile with no reports of chest pain or palpitations noted. Patient denies shortness of breath. Review of systems: Constitutional: No reports of fatigue, fever, or chills Cardiovascular: No reports of chest pain or palpitations Respiratory: No reports of shortness of breath or cough GI: No reports of nausea, vomiting, or diarrhea : No reports of dysuria or retention Neurovascular: No reports of weakness or numbness All medications have been reviewed PHYSICAL EXAMINATION: Patient is sitting up in the bed comfortably, no acute distress, awake alert and oriented.. Well-developed, well-nourished, obese HEENT: Normocephalic. Neck is supple. Pupils reactive. Nostrils clear. Oral cavity is moist. Neck reveals no JVD, carotid bruits, or thyromegaly. CHEST EXAMINATION: Trachea is central. Symmetrical expansion. Lung moise clear to auscultation and percussion. CARDIAC: Normal S1, S2 with no gallops. No murmurs. Irregularly irregular rhythm. Continues in atrial fibrillation ABDOMEN: Soft. Obese. Bowel sounds normal. No organomegaly. No abdominal bruits. Extremities: reveal no edema. No clubbing or cyanosis, bilateral wrist pain and reports is chronic. Neurologically awake, alert, oriented x3 with well-coordinated movements. No focal deficits noted Skin: No rash or skin lesions. Psychiatric: Cooperative. Non-suicidal Musculoskeletal: No joint swelling or deformity. Normal range of motion. Assessment: Atrial fibrillation with rapid ventricular rate Coronary artery disease with history of stent placement in 2017 Hyperglycemia with uncontrolled diabetes type 2 [id number] Obstructive sleep apnea GERD Anxiety/depression GI prophylaxis patient is on PPI Plan: Patient will be continued on telemetry monitoring. Patient currently continues on a Cardizem drip at 5 mL/h with cardiology following. Patient being started on metoprolol as well as heparin drip which is being transition to oral Eliquis. Patient is on aspirin, Norvasc and lisinopril at home. Continue with insulin sliding scale for better blood sugar control. Follow-up A1c level which remains pending. Oral hypoglycemics on hold. Patient is also o n Ozempic at home. Patient does have low TSH level but free T4 level within normal limits. Cardiology following making adjustments to medications and being transition to Eliquis along with metoprolol as mentioned previously. Will discuss with cardiology regarding discharge planning. Possible discharge planning in the next 24 hours. The impression and plan of care has been dictated by Lisa Irby, Nurse Practitioner as directed. Dr. Aiden MD I have performed a history and examination and MDM of this patient, discussed the same with the dictator, and agree with the dictator's assessment and plan as written ,documented as a scribe. Based on total visit time, I have performed more than 50% of the visit. Objective - Vital Signs Vital signs: Vital Signs Temp 97.9 F 10/05/23 12:02 Pulse 67 10/05/23 13:00 Resp 18 10/05/23 13:00 BP 109/83 10/05/23 13:00 Pulse Ox 95 10/05/23 13:00 FiO2 Intake & Output 10/04/23 10/05/23 10/05/23 18:59 06:59 18:59 Intake Total 306.175 280.333 Output Total 2100 Balance -1793.825 280.333 Weight 111.13 kg Intake: Intake, IV Titration 306.175 30.333 Amount Diltiazem 125 mg In 71 30.333 Sodium Chloride 0.9% 100 ml @ 5 MG/HR 5 mls/hr IV .Q24H [facility] Rx#:[id number] Heparin Sod,Pork in 0.45% 235.175 NaCl 25,000 unit In 0.45 % NaCl 1 250ml.bag @ 8. 9984 UNITS/KG/HR 10 mls/ hr IV .Q24H [facility] Rx#: [id number] Oral 250 Output: Urine 2100 - Labs CBC & Chem 7: 10/05/23 09:37 10/05/23 09:37 Labs: Abnormal Lab Results - Last 24 Hours (Table) 10/04/23 10/04/23 10/05/23 Range/Units 17:42 20:09 01:15 APTT 33.5 H (22.0-30.0) sec Chloride (98-107) mmol/L Glucose (74-99) mg/dL POC Glucose (mg/dL) 208 H 220 H (70-110) mg/dL Total Protein (6.3-8.2) g/dL 10/05/23 10/05/23 10/05/23 Range/Units 07:22 09:37 09:37 APTT 36.9 H (22.0-30.0) sec Chloride 111 H (98-107) mmol/L Glucose 172 H (74-99) mg/dL POC Glucose (mg/dL) 144 H (70-110) mg/dL Total Protein 5.9 L (6.3-8.2) g/dL 10/05/23 Range/Units 12:12 APTT (22.0-30.0) sec Chloride (98-107) mmol/L Glucose (74-99) mg/dL POC Glucose (mg/dL) 157 H (70-110) mg/dL Total Protein (6.3-8.2) g/dL
[2023-10-05 17:14] LABS: Glucose,Whole Blood 140 mg/dL (70-110)
[2023-10-05 20:00] VITALS: RESP 16
[2023-10-05 20:34] LABS: Glucose,Whole Blood 166 mg/dL (70-110)
[2023-10-05] MEDS: CITALOPRAM HYDROBROMIDE 20 MG TAB PO SCH (20:39)
[2023-10-05] MEDS: DILTIAZEM 125 MG in SODIUM CHLORIDE 0.9% 100 ML IV SCH (21:43)
[2023-10-06 06:09] LABS: Glucose,Whole Blood 123 mg/dL (70-110)
[2023-10-06] MEDS: DAPAGLIFLOZIN PROPANEDIOL 10 MG TABLET PO SCH (08:43)
[2023-10-06 11:34] LABS: Glucose,Whole Blood 107 mg/dL (70-110)
[2023-10-06] MEDS ORDERED: LIDOCAINE 1% INJ 10MG/ML (20 ML MDV) ONE (13:16)
[2023-10-06] MEDS ORDERED: PROPOFOL 10 MG/ML 20 ML VIAL IV ONE (13:16)
[2023-10-06] MEDS: IV FLUID CONTINUATION 1,000 ML IV ONE (13:16)
--- NOTE | 2023-10-06 13:34 | P.TEE ---
Description of Procedure(s): Procedure performed: Transesophageal Echocardiogram with color flow doppler, pulsed wave doppler and continuous wave doppler, synchronized cardioversion Moderate conscious sedation: Moderate conscious sedation was supplied by anesthesia, see separate report. Complications: none Indications: persistent atrial fibrillation PROCEDURE: After the risks, benefits and alternatives of the above mentioned procedure was explained in detail with the patient, informed consent was obtained. Patient was brought to the lab in a fasting state. Patient was given sedation by anesthesia, see separate report. The throat was sprayed with Hurricane to anesthetize the throat. A lubricated Omni probe was then introduced into the esophagus and stomach and multiple views were obtained. 2D echo with color flow doppler, pulsed wave doppler and continuous wave doppler was utilized. Agitated saline bubbles were injected to assess for any intra- atrial shunt. The probe was then removed. There was no thrombus noted and therefore patient underwent synchronized cardioversion x 1 with 200J with resultant sinus rhythm. Patient tolerated the procedure well. Patient was transferred to the post procedure area in stable and satisfactory condition. FINDINGS: 1. The aortic valve is tricuspid and function normally. 2. The mitral valve appears be normal with mild regurgitation. 3. Tricuspid valve appears to be normal. 4. The interatrial septum is intact. The septum is aneurysmal. No evidence of PFO. 5. Left atrial appendage is free of clot. 6. Left ventricular size and function appear to be normal with LV EF 55% 7. The left atrium is mild to moderately dilated.
--- NOTE | 2023-10-06 14:52 | P.PN ---
Subjective Progress Note Date: 10/06/23 Consult reason: atrial fibrillation (with rvr, new onset) History of present illness: This is a 58-year-old male patient of Dr. Jesus with past medical history of hypertension, hyperlipidemia, diabetes mellitus type 2, previous tobacco use, coronary artery disease with prior [place] and PCI of the RCA with preserved EF, likely bicuspid valve with mild aortic stenosis, aortic root dilatation, strong family history of premature coronary artery disease, obstructive sleep apnea with CPAP. We have been asked to evaluate the patient for new onset of A-fib with RVR. Patient states that he developed a fluttering sensation in his chest. He denies having any lightheadedness or dizziness, no chest pain, no syncopal episodes. Started on Wednesday afternoon about 1:00. He denies any alcohol use. He has been taking all of his medications as directed. Only new medication has been meloxicam about 1 month ago. He has been started on a Cardizem drip at 5 mg/h. His heart rate is currently controlled 80s to 90s. Patient is also been started on a heparin drip. Patient is seen today in the emergency center waiting for a bed on the cardiac stepdown unit. Dr. Aponte discussed options of electrocardioversion tomorrow if he remains in atrial fibrillation. Patient is agreeable. Patient was recently hospitalized in June of this year for hypertensive emergency. EKG atrial fibrillation with ventricular rate of 129 Chest x-ray: No acute process CBC within normal limits. Sodium 139, potassium 3.9, BUN 15 creatinine 0.68. Magnesium 1.9. Liver function tests are normal. TSH 0.654. Troponin negative x 3. Home cardiac medications: Amlodipine 10 mg daily, aspirin 81 mg at bedtime, atorvastatin 40 mg at bedtime, lisinopril 20 mg twice daily, spironolactone 25 mg at bedtime. Echocardiogram performed on 07/27/2022 revealed EF of 55 to 60%, aortic sclerosis with no stenosis or insufficiency. 10/05 Yesterday afternoon, Cardizem drip was discontinued but patient went into A-fib with RVR during the night around 2100 and was started back on Cardizem at 5 mg/h. He is currently in A-fib which is a controlled rate. Blood pressure 127/81, heart rate 75, pulse ox 97% on room air. Physical examination: Gen: This is a 58-year-old male in no acute distress. VS: reviewed blood pressure 112/80, heart rate 83, pulse ox 95% on room air. HEENT: Head is atraumatic, normocephalic. Pupils equal, round. Sclerae is anicteric. NECK: Supple. No JVD. LUNGS: Clear to auscultation. No wheezes or rhonchi. No intercostal retractions. HEART: Irregular rate and rhythm. 2/6 systolic murmur. ABDOMEN: Soft No tenderness. EXTREMITIES: No pedal edema. Dorsalis pedis palpable bilaterally. NEUROLOGICAL: Patient is awake, alert and oriented x3. Assessment: New onset A-fib with RVR Hypertension Coronary artery disease status post PCI of the RCA in 2017 Hyperlipidemia Mild aortic stenosis likely bicuspid valve Mild aortic root dilatation Diabetes mellitus type 2 Family history of premature coronary artery disease Remote history of tobacco use Plan: Continue patient's home cardiac medications Continue Cardizem drip, Lopressor 25 mg twice daily and Eliquis Schedule patient for ETHAN and cardioversion today with Dr. Jesus No need to repeat echocardiogram as this was done in June Further recommendations to follow based upon clinical course Nurse practitioner note has been reviewed, I agree with documented findings and plan of care. Patient was seen and examined. Objective - Vital Signs Vital signs: Vital Signs Temp 98.1 F 10/06/23 08:00 Pulse 72 10/06/23 09:26 Resp 16 10/06/23 08:00 BP 112/70 10/06/23 08:00 Pulse Ox 98 10/06/23 08:00 FiO2 Intake & Output 10/05/23 10/06/23 10/06/23 18:59 06:59 18:59 Intake Total 280.333 Balance 280.333 Intake: Intake, IV Titration 30.333 Amount Diltiazem 125 mg In 30.333 Sodium Chloride 0.9% 100 ml @ 5 MG/HR 5 mls/hr IV .Q24H [facility] Rx#:[id number] Oral 250 Other: Voiding Method Toilet Toilet # Bowel Movements 1 - Labs CBC & Chem 7: 10/05/23 09:37 10/05/23 09:37 Labs: Abnormal Lab Results - Last 24 Hours (Table) 10/05/23 10/05/23 10/05/23 Range/Units 09:37 12:12 17:11 POC Glucose (mg/dL) 157 H 140 H (70-110) mg/dL Hemoglobin A1c 7.4 H (<=6.0) % 10/05/23 10/06/23 Range/Units 20:32 06:08 POC Glucose (mg/dL) 166 H 123 H (70-110) mg/dL Hemoglobin A1c (<=6.0) %
[2023-10-06 16:41] LABS: Glucose,Whole Blood 207 mg/dL (70-110)
[2023-10-06 20:11] LABS: Glucose,Whole Blood 138 mg/dL (70-110)
--- NOTE | 2023-10-07 06:03 | P.PN ---
Subjective Progress Note Date: 10/06/23 Patient is a 58-year-old male with a past medical history of hypertension, diabetes type 2 [id number] on Ozempic, GERD, obstructive sleep apnea, coronary artery disease with history of stent placement in January 2017, depression presents to ER with complaints of increased heart rate/palpitations. Patient states her she has prior history of atrial fibrillation. Patient has been having increased heart rate since Wednesday and has been on and off. Patient had symptoms on Wednesday as well. Patient went to work this morning and started having symptoms again. He drove himself to the ER. Denies any complaints of chest pain or shortness of breath. Denies any recent illnesses. No leg swelling. No nausea vomiting abdominal pain or diarrhea. No cough or sputum production. On admission heart rate 127 respiration 20 pulse ox 97% on room air. Laboratory data showed WBC 6.5 hemoglobin 15.1 and platelets 210. Sodium 141 potassium 4.2 chloride 110 bicarb is 18 BUN 19 and creatinine 0.69 blood sugar 271. Liver radiographs are not elevated. Troponin x 3 negative, proBNP 1950 TSH 0.391 and free T4 level within normal limits at 1.04 10/05/2023 Patient is seen and evaluated in follow-up this morning currently continues to be hold down in the emergency department awaiting a bed on stepdown as patient continues to be in atrial fibrillation with RVR which is new onset. Patient is continued on heparin and being transition to Eliquis per cardiology although continues on a Cardizem drip at 5/h. Metoprolol being added and monitored for and controlled heart rate. Continue with telemetry monitoring. Patient reports has a history of carpal tunnel and takes Mobic, will resume including other home medications. Patient is afebrile with no reports of chest pain or palpitations noted. Patient denies shortness of breath. 10/06/2023 Patient is seen in follow-up with cardiology following currently maintained on Eliquis along with metoprolol with plans on cardioversion today. Patient is currently n.p.o. and awaiting cardioversion with cardiology today. ETHAN scheduled. Patient is afebrile with no reports of chest pain or shortness of breath. Patient continued on telemetry monitoring and will likely return here on 3 S. at the bedside with questions and concerns that were answered to the best of our ability. and patient somewhat anxious about this overall procedure although willing to proceed as patient continues to be symptomatic. Will await official cardiology report to discuss further regarding treatment plans moving forward. Review of systems: Constitutional: No reports of fatigue, fever, or chills Cardiovascular: No reports of chest pain or palpitations Respiratory: No reports of shortness of breath or cough GI: No reports of nausea, vomiting, or diarrhea : No reports of dysuria or retention Neurovascular: No reports of weakness or numbness All medications have been reviewed PHYSICAL EXAMINATION: Patient is sitting up in the bed comfortably, slightly anxious, awake alert and oriented.. Well-developed, well-nourished, obese HEENT: Normocephalic. Neck is supple. Pupils reactive. Nostrils clear. Oral cavity is moist. Neck reveals no JVD, carotid bruits, or thyromegaly. CHEST EXAMINATION: Trachea is central. Symmetrical expansion. Lung moise clear to auscultation and percussion. CARDIAC: Normal S1, S2 with no gallops. No murmurs. Irregularly irregular rhythm. Continues in atrial fibrillation ABDOMEN: Soft. Obese. Bowel sounds normal. No organomegaly. No abdominal bruits. Extremities: reveal no edema. No clubbing or cyanosis, bilateral wrist pain and reports is chronic. Neurologically awake, alert, oriented x3 with well-coordinated movements. No focal deficits noted Skin: No rash or skin lesions. Psychiatric: Cooperative. Non-suicidal Musculoskeletal: No joint swelling or deformity. Normal range of motion. Assessment: Atrial fibrillation with rapid ventricular rate, scheduled for cardioversion with ETHAN today 10/06/2023 Coronary artery disease with history of stent placement in 2017 Hyperglycemia with uncontrolled diabetes type 2 [id number] Obstructive sleep apnea Obesity with a BMI of 32.3 GERD Anxiety/depression GI prophylaxis patient is on PPI DVT prophylaxis Full code Plan: Patient will be continued on telemetry monitoring. Patient currently continues on a Cardizem drip at 5 mL/h with cardiology following. Patient has been started on metoprolol as well as oral Eliquis. Cardiology following with plans on ETHAN with cardioversion today. Patient is currently n.p.o. and okay to resume diet once cleared by cardiology Patient is on aspirin, Norvasc and lisinopril at home. Continue with insulin sliding scale for better blood sugar control. A1c level 7.4. Oral hypoglycemics on hold. Patient is also on Ozempic at home. Patient does have low TSH level but free T4 level within normal limits. Will discuss with cardiology regarding discharge planning and treatment plan moving forward. The impression and plan of care has been dictated by Lisa Irby, Nurse Practitioner as directed. Dr. Aiden MD I have performed a history and examination and MDM of this patient, discussed the same with the dictator, and agree with the dictator's assessment and plan as written ,documented as a scribe. Based on total visit time, I have performed more than 50% of the visit. Objective - Vital Signs Vital signs: Vital Signs Temp 98.1 F 10/06/23 08:00 Pulse 72 10/06/23 09:26 Resp 16 10/06/23 08:00 BP 112/70 10/06/23 08:00 Pulse Ox 98 10/06/23 08:00 FiO2 Intake & Output 10/05/23 10/06/23 10/06/23 18:59 06:59 18:59 Intake Total 280.333 Balance 280.333 Intake: Intake, IV Titration 30.333 Amount Diltiazem 125 mg In 30.333 Sodium Chloride 0.9% 100 ml @ 5 MG/HR 5 mls/hr IV .Q24H [facility] Rx#:[id number] Oral 250 Other: Voiding Method Toilet Toilet # Bowel Movements 1 - Labs CBC & Chem 7: 10/05/23 09:37 10/05/23 09:37 Labs: Abnormal Lab Results - Last 24 Hours (Table) 10/05/23 10/05/23 10/05/23 Range/Units 09:37 09:37 12:12 Chloride 111 H (98-107) mmol/L Glucose 172 H (74-99) mg/dL POC Glucose (mg/dL) 157 H (70-110) mg/dL Hemoglobin A1c 7.4 H (<=6.0) % Total Protein 5.9 L (6.3-8.2) g/dL 10/05/23 10/05/23 10/06/23 Range/Units 17:11 20:32 06:08 Chloride (98-107) mmol/L Glucose (74-99) mg/dL POC Glucose (mg/dL) 140 H 166 H 123 H (70-110) mg/dL Hemoglobin A1c (<=6.0) % Total Protein (6.3-8.2) g/dL
[2023-10-07 06:07] LABS: Glucose,Whole Blood 121 mg/dL (70-110)
[2023-10-07 07:21] VITALS: TEMP 98
[2023-10-07 11:31] LABS: Glucose,Whole Blood 102 mg/dL (70-110)
[2023-10-07 12:17] VITALS: BP 124/82; PULSE 62
--- NOTE | 2023-10-07 13:19 | P.PN ---
Subjective Progress Note Date: 10/07/23 Consult reason: atrial fibrillation (with rvr, new onset) History of present illness: This is a 58-year-old male patient of Dr. Jesus with past medical history of hypertension, hyperlipidemia, diabetes mellitus type 2, previous tobacco use, coronary artery disease with prior TN and PCI of the RCA with preserved EF, likely bicuspid valve with mild aortic stenosis, aortic root dilatation, strong family history of premature coronary artery disease, obstructive sleep apnea with CPAP. We have been asked to evaluate the patient for new onset of A-fib with RVR. Patient states that he developed a fluttering sensation in his chest. He denies having any lightheadedness or dizziness, no chest pain, no syncopal episodes. Started on Wednesday afternoon about 1:00. He denies any alcohol use. He has been taking all of his medications as directed. Only new medication has been meloxicam about 1 month ago. He has been started on a Cardizem drip at 5 mg/h. His heart rate is currently controlled 80s to 90s. Patient is also been started on a heparin drip. Patient is seen today in the emergency center waiting for a bed on the cardiac stepdown unit. Dr. Aponte discussed options of electrocardioversion tomorrow if he remains in atrial fibrillation. Patient is agreeable. Patient was recently hospitalized in June of this year for hypertensive emergency. EKG atrial fibrillation with ventricular rate of 129 Chest x-ray: No acute process CBC within normal limits. Sodium 139, potassium 3.9, BUN 15 creatinine 0.68. Magnesium 1.9. Liver function tests are normal. TSH 0.654. Troponin negative x 3. Home cardiac medications: Amlodipine 10 mg daily, aspirin 81 mg at bedtime, atorvastatin 40 mg at bedtime, lisinopril 20 mg twice daily, spironolactone 25 mg at bedtime. Echocardiogram performed on 07/27/2022 revealed EF of 55 to 60%, aortic sclerosis with no stenosis or insufficiency. 10/05 Yesterday afternoon, Cardizem drip was discontinued but patient went into A-fib with RVR during the night around 2100 and was started back on Cardizem at 5 mg/h. He is currently in A-fib which is a controlled rate. Blood pressure 127/81, heart rate 75, pulse ox 97% on room air. 10/06 Yesterday, patient underwent ETHAN and cardioversion with Dr. Jesus. Patient is currently in a sinus rhythm in the 60s, blood pressure 113/72, pulse ox 97% on room air. Patient denies having any lightheadedness or dizziness, no chest pain, no shortness of breath. He is also been started on Eliquis during this hospitalization. Physical examination: Gen: This is a 58-year-old male in no acute distress. VS: reviewed blood pressure 112/80, heart rate 83, pulse ox 95% on room air. HEENT: Head is atraumatic, normocephalic. Pupils equal, round. Sclerae is anicteric. NECK: Supple. No JVD. LUNGS: Clear to auscultation. No wheezes or rhonchi. No intercostal retractions. HEART: Regular rate and rhythm. 2/6 systolic murmur. ABDOMEN: Soft No tenderness. EXTREMITIES: No pedal edema. Dorsalis pedis palpable bilaterally. NEUROLOGICAL: Patient is awake, alert and oriented x3. Assessment: New onset A-fib with RVR status post ETHAN/cardioversion and currently in sinus rhythm Hypertension Coronary artery disease status post PCI of the RCA in 2017 Hyperlipidemia Mild aortic stenosis likely bicuspid valve Mild aortic root dilatation Diabetes mellitus type 2 Family history of premature coronary artery disease Remote history of tobacco use Plan: Continue current cardiac medications Patient is cleared for discharge from cardiology May follow-up with Dr. Jesus in 1 week. Nurse practitioner note has been reviewed, I agree with documented findings and plan of care. Patient was seen and examined. Objective - Vital Signs Vital signs: Vital Signs Temp 98 F 10/06/23 20:00 Pulse 68 10/07/23 09:13 Resp 16 10/07/23 09:14 BP 113/72 10/07/23 09:13 Pulse Ox 96 10/06/23 20:00 FiO2 Intake & Output 10/06/23 10/07/23 10/07/23 18:59 06:59 18:59 Intake Total 218 180 Balance 218 180 Intake: IV 100 Oral 118 180 Other: Voiding Method Toilet Toilet Toilet # Voids 1 # Bowel Movements 1 1 - Labs CBC & Chem 7: 10/05/23 09:37 10/05/23 09:37 Labs: Abnormal Lab Results - Last 24 Hours (Table) 10/06/23 10/06/23 10/07/23 Range/Units 16:39 20:07 06:05 POC Glucose (mg/dL) 207 H 138 H 121 H (70-110) mg/dL
--- NOTE | 2023-10-11 14:59 | P.DS ---
Providers Date of admission: 10/04/23 11:46 Expected date of discharge: 10/07/23 Attending physician: Joceline Awan Consults: 10/04/23 11:46 Consult Physician Routine Consulting Provider: Marcela Taylor Consult Reason/Comments: newAfib Do you want consulting provider notified?: Yes Primary care physician: Bharti Conrad Hospital Course: Final diagnosis Atrial fibrillation with rapid ventricular rate, status post cardioversion with ETHAN 10/06/2023 Coronary artery disease with history of stent placement in 2017 Hyperglycemia with uncontrolled diabetes type 2 [id number] Obstructive sleep apnea Obesity with a BMI of 32.3 GERD Anxiety/depression GI prophylaxis DVT prophylaxis Full code Discharge disposition Patient is being discharged in a stable condition with guarded prognosis to home. Patient will follow-up with Dr. Conrad in the outpatient setting upon discharge. Patient is to continue with current medications and close outpatient follow-up with cardiology as scheduled. Total time taken is greater than 35 minutes. Hospital course This is a 58-year-old male who was recently admitted with new onset atrial fibrillation with RVR being closely monitored. Patient was started on a Cardizem drip along with heparin and transition to Eliquis. Patient being monitored with cardiology following underwent ETHAN with no abnormalities noted and also status post cardioversion. Patient will follow-up with cardiology outpatient and has been cleared. Please refer to cardiology notes for further HPI. Currently no reports of chest pain, shortness of breath, or palpitations. Patient is afebrile. No reports of nausea or vomiting and patient is tolerating diet. Patient will be discharged home today. Physical exam: Gen: This is a 58-year-old male who is awake, alert and oriented x 3, well- developed, well-nourished, obese HEENT: Head is atraumatic, normocephalic. Pupils equal, round. Sclerae is anicteric. NECK: Supple. No JVD. No lymphadenopathy. No thyromegaly. LUNGS: Clear to auscultation. No wheezes or rhonchi. No intercostal retractions. HEART: S1, S2 are muffled ABDOMEN: Soft. Obese. Bowel sounds are present. No masses. No tenderness. EXTREMITIES: No pedal edema. No calf tenderness. NEUROLOGICAL: Patient is awake, alert and oriented x3. Cranial nerves 2 through 12 are grossly intact. Please refer to medication reconciliation sheet for a list of medications. The impression and plan of care has been dictated by Lisa Irby, Nurse Practitioner as directed. Dr. Aiden MD I have performed a history and examination and MDM of this patient, discussed the same with the dictator, and agree with the dictator's assessment and plan as written ,documented as a scribe. Based on total visit time, I have performed more than 50% of the visit. Patient Condition at Discharge: Fair Plan - Discharge Summary Discharge Rx Participant: No New Discharge Prescriptions: New Metoprolol Tartrate [Lopressor] 25 mg PO BID 30 Days #60 tab Apixaban [Eliquis] 5 mg PO BID 30 Days #60 tab Continue Citalopram Hydrobromide [Citalopram HBr] 40 mg PO HS Empagliflozin [Jardiance] 25 mg PO DAILY Montelukast [Singulair] 10 mg PO DAILY PRN PRN Reason: Allergy Symptoms Semaglutide [Ozempic] 1 mg SQ LAZO Atorvastatin [Lipitor] 40 mg PO HS #30 tab metFORMIN HCL ER [Glucophage XR] 1,000 mg PO BID busPIRone HCl [Buspar] 10 mg PO BID Spironolactone [Aldactone] 25 mg PO HS Aspirin 81 mg PO HS RABEprazole SODIUM 20 mg PO DAILY Meloxicam [Mobic] 7.5 mg PO DAILY Testosterone [Androgel 1.62%] 4 pump TRANSDERM DAILY Discontinued amLODIPine BESYLATE [Norvasc] 10 mg PO DAILY lisinopriL [Zestril] 20 mg PO BID #60 tab Discharge Medication List Citalopram Hydrobromide [Citalopram HBr] 40 mg PO HS 09/11/16 [History] Aspirin 81 mg PO HS 06/04/21 [History] Empagliflozin [Jardiance] 25 mg PO DAILY 02/24/22 [History] RABEprazole SODIUM 20 mg PO DAILY 02/24/22 [History] Montelukast [Singulair] 10 mg PO DAILY PRN 07/27/22 [History] Semaglutide [Ozempic] 1 mg SQ LAZO 07/27/22 [History] Atorvastatin [Lipitor] 40 mg PO HS #30 tab 07/28/22 [Rx] Meloxicam [Mobic] 7.5 mg PO DAILY 10/04/23 [History] Spironolactone [Aldactone] 25 mg PO HS 10/04/23 [History] Testosterone [Androgel 1.62%] 4 pump TRANSDERM DAILY 10/04/23 [History] busPIRone HCl [Buspar] 10 mg PO BID 10/04/23 [History] metFORMIN HCL ER [Glucophage XR] 1,000 mg PO BID 10/04/23 [History] Apixaban [Eliquis] 5 mg PO BID 30 Days #60 tab 10/07/23 [Rx] Metoprolol Tartrate [Lopressor] 25 mg PO BID 30 Days #60 tab 10/07/23 [Rx] Follow up Appointment(s)/Referral(s): iMtul Jesus DO [STAFF PHYSICIAN] - 1 Week Bharti Conrad DO [Primary Care Provider] - 1-2 days Patient Instructions/Handouts: A-fib (Atrial Fibrillation) (DC), Cardioversion (DC), Hypertension and Diabetes (DC) Activity/Diet/Wound Care/Special Instructions: Activity limited until follow-up Follow-up with primary care provider on discharge Continue taking medications as prescribed Follow-up with cardiology outpatient in 1 to 2 weeks Encouraged rest and no strenuous activity for the next few days Continue monitoring blood sugars as previously done and keep a diary of all readings for follow-up appointments Discharge Disposition: HOME SELF-CARE
== END 2023-10-07 13:23 | disposition home or self-care (01) | DRG 309 ==
LOC: EC 08:56 → 3SCARD 11:46
PROVIDERS: ADMIT Hospitalist; ATTEND Hospitalist
PROC: 5A2204Z Restoration of Cardiac Rhythm, Single (ICD-10-PCS; principal; 2023-10-06 07:30)
PROC: B246ZZ4 Ultrasonography of Right and Left Heart, Transesophageal (ICD-10-PCS; principal; 2023-10-06 07:30)
DX: I48.91 Unspecified atrial fibrillation (principal); Q23.1 Congenital insufficiency of aortic valve; F41.9 Anxiety disorder, unspecified; M79.7 Fibromyalgia; F32.A Depression, unspecified; I25.10 Atherosclerotic heart disease of native coronary artery without angina pectoris; G47.33 Obstructive sleep apnea (adult) (pediatric); E78.5 Hyperlipidemia, unspecified; I25.2 Old myocardial infarction; E66.9 Obesity, unspecified; I10 Essential (primary) hypertension; I70.0 Atherosclerosis of aorta; Z68.32 Body mass index [BMI] 32.0-32.9, adult; K21.9 Gastro-esophageal reflux disease without esophagitis; Z79.82 Long term (current) use of aspirin; Z79.84 Long term (current) use of oral hypoglycemic drugs; Z79.85 Long-term (current) use of injectable non-insulin antidiabetic drugs; Z79.1 Long term (current) use of non-steroidal anti-inflammatories (NSAID); Z87.891 Personal history of nicotine dependence; Z28.21 Immunization not carried out because of patient refusal; Z79.899 Other long term (current) drug therapy; Z87.442 Personal history of urinary calculi; Z88.5 Allergy status to narcotic agent; Z88.8 Allergy status to other drugs, medicaments and biological substances; Z83.3 Family history of diabetes mellitus; Z82.49 Family history of ischemic heart disease and other diseases of the circulatory system; Z95.5 Presence of coronary angioplasty implant and graft
CPT/HCPCS: 36415; 71045; 80053; 83036; 83735; 83880; 84100; 84439; 84443; 84484; 85025; 85610; 85730; 92960; 93005; 93312; 93320; 93325; 96361; 96365; 96366; 96368; 99291

== ENCOUNTER → 2024-07-04 | Outpatient (CLI) | payer BC ==
[2024-07-04 15:45] LABS: HCT 48.9 % (39.6-50.0); HGB 15.2 g/dL (13.0-17.0); MCH 27.6 pg (27.0-32.0); MCHC 31.1 g/dL (32.0-37.0); MCV 88.9 FL (80.0-97.0); Mean Platelet Volume 10.8 FL (9.5-12.2); NRBC Per 100 WBC 0 X 10*3/uL (0.00-0.01); Platelet Count 209 X 10*3/uL (140-440); RDW 14.9 % (11.5-14.5); WBC 6.77 X 10*3/uL (4.50-10.00)
[2024-07-04 16:00] LABS: Carbon Dioxide 26.8 mmol/L (21.6-31.8); Chloride 106 mmol/L (96-109); Potassium 4.7 mmol/L (3.5-5.5); Sodium 144 mmol/L (135-145)
== END | disposition home or self-care (01) ==
LOC: LABPAT 10:18
PROVIDERS: ATTEND Internal Medicine
DX: I25.10 Atherosclerotic heart disease of native coronary artery without angina pectoris (principal)
CPT/HCPCS: 80051; 82565; 84520; 85027

== ENCOUNTER → 2024-07-21 | Day surgery (SDC) | payer BC ==
[~2024-07-21] MED LIST changes: +ALPRAZolam 0.25 MG TAB PO PRN; +ALPRAZolam 0.5 MG TAB PO PRN; +ATORVASTATIN 80 MG TAB PO STA; -DEXAMETHASONE SOD PHOSPHATE 4 MG/ML 1 ML VIAL IV ONE; +HEPARIN SODIUM,PORCINE (1 ML) 2,500 UNIT in SODIUM CHLORIDE 0.9% 250 ML IRRIGATION PRN; +HEPARIN SODIUM,PORCINE 10,000 UNIT in SODIUM CHLORIDE 0.9% 1,000 ML IRRIGATION PRN; -LACTATED RINGERS 1,000 ML IV SCH; +NITROGLYCERIN SL TABS 0.4 MG TAB SUBLINGUAL PRN; -ONDANSETRON 4 MG/2 ML VIAL IVP ONE; +SODIUM CHLORIDE 0.9% 1,000 ML in EMPTY BAG 1 BAG IV SCH; -fentaNYL (PF) 50 MCG/ML 2 ML AMP IV PRN
[2024-07-21] MEDS: SODIUM CHLORIDE 0.9% 1,000 ML IV ONE (08:42)
[2024-07-21 08:54] LABS: Glucose,Whole Blood 116 mg/dL (70-110)
[2024-07-21 08:55] VITALS: RESP 18; TEMP 97.8
[2024-07-21] MEDS: ASPIRIN 325 MG TAB PO STA (09:09)
[2024-07-21] MEDS: MIDAZOLAM 2 MG/2 ML VIAL IVP ONE ×2 (12:22→12:28)
[2024-07-21] MEDS: fentaNYL (PF) 50 MCG/ML 2 ML AMP IVP ONE (12:22)
[2024-07-21] MEDS: HEPARIN SODIUM 1,000 UN/ML (10ML VL) IVP ONE ×3 (12:31→13:02)
[2024-07-21] MEDS: ADENOSINE 180 MG in SODIUM CHLORIDE 0.9% 30 ML IVP ONE (13:05)
[2024-07-21] MEDS: IOPAMIDOL-370 100ML BTL INJ ONE (13:06)
[2024-07-21 15:51] VITALS: BP 146/89; PULSE 63
--- NOTE | 2024-07-21 17:14 | P.CARDCATH ---
Description of Procedure: PROCEDURES PERFORMED: Left heart catheterization, bilateral coronary angiography, ultrasound guided arterial access, iFR RCA, iFR/FFR circumflex INDICATION: Abnormal stress test with inducible inferior ischemia CONSENT:I have discussed the risks, benefits and alternative therapies for the above-mentioned procedure and for both sedation/analgesia as well as necessary blood product administration, if indicated, as they pertain to this patient. The patient has indicated understanding and acceptance of the risks and procedures discussed. PROCEDURE: After the risks, benefits and alternatives of the above mentioned procedure explained in detail with the patient, informed consent was obtained. Patient was taken to the catheterization lab and prepped and draped in usual fashion. Ultrasound guidance was used to assess for arterial access. 1% lidocaine was used to anesthetize the right radial artery. A 6-[place] sheath was placed in the right radial artery using modified Seldinger technique and ultrasound guidance. Left coronary angiography was performed with a 5-[place] JL 3.5 catheter and right coronary angiography was performed with a 5-[place] AR2 catheter in various views. A 5-[place] AR2 catheter was inserted into the left ventricle and pressure measurements were obtained. The decision was made to perform functional assessment of both the RCA in the circumflex. Heparin was given. Using the AR2 catheter, a 0.014 pressure wire was advanced to the proximal RCA and then advanced 1 cm distal to the proximal RCA stents stenosis. RFR was performed and was normal at 0.99 of the RCA. Next a 6-[place] CLS 3.5 guide was used to engage the left main. A 0.014 pressure wire was advanced the left main and normalized. He was then advanced into the mid circumflex approximately 1 cm distal to the circumflex lesion. RFR was normal at 0.98. Adenosine infusion and FFR was performed and was also normal at 0.89. The right radial sheath was removed and a TR band was placed with hemostasis achieved. The patient tolerated the procedure well. Patient was transported back to the post catheterization holding area in stable condition. Conscious Sedation: Patient was monitored under the direct supervision of myself for conscious sedation using Versed and fentanyl for a total duration of 27 minutes HEMODYNAMICS: Aorta: 137/75 LV: 140/5, LVEDP 18 SELECTIVE CORONARY ARTERIOGRAPHY: LEFT MAIN: The left main is a large caliber vessel which bifurcates into the LAD and circumflex. There is no significant stenosis. LEFT ANTERIOR DESCENDING CORONARY ARTERY: LAD is a large caliber vessel which wraps around to the apex. There are mild luminal irregularities of the LAD. LEFT CIRCUMFLEX CORONARY ARTERY: Left circumflex is a large caliber vessel with a 70% proximal circumflex stenosis leading to a large caliber OM1 branch which trifurcates distally. RIGHT CORONARY ARTERY: The right coronary artery is a large caliber vessel which gives off a PDA and PLV branch and is the dominant vessel. There is a proximal RCA stents with 40-50% in-stent stenosis with a shepherds hooked takeoff. Otherwise there are mild 20-30% stenosis of the mid RCA. FINAL IMPRESSION: 1. CAD as described above including 40-50% proximal RCA in-stent stenosis and 70% proximal circumflex stenosis. 2. Normal left sided filling pressures 3. iFR/FFR normal of RCA and circumflex PLAN: 1. Aggressive risk factor modification per most recent ACC/AHA guidelines. 2. Despite circumflex appearing somewhat worse angiographically functional assessment is normal and abnormality in the stress test was more in the inferior wall. Therefore continue with medical therapy at this time. If she has worsened symptoms consider repeating catheterization with IVUS
== END ==
LOC: CATHCVL 08:33
PROVIDERS: ATTEND Internal Medicine
DX: R94.39 Abnormal result of other cardiovascular function study (principal); R06.02 Shortness of breath; I25.10 Atherosclerotic heart disease of native coronary artery without angina pectoris; I25.2 Old myocardial infarction; I10 Essential (primary) hypertension; E78.5 Hyperlipidemia, unspecified; E11.9 Type 2 diabetes mellitus without complications; Z87.891 Personal history of nicotine dependence; Z95.5 Presence of coronary angioplasty implant and graft; I48.0 Paroxysmal atrial fibrillation; R00.1 Bradycardia, unspecified; Z79.82 Long term (current) use of aspirin; Z79.84 Long term (current) use of oral hypoglycemic drugs; Z79.85 Long-term (current) use of injectable non-insulin antidiabetic drugs; Z79.01 Long term (current) use of anticoagulants
CPT/HCPCS: 93458; 99152; 93571; J2250; J3010; J1644; J0153; Q9967; 93799